=== PATIENT | male | born 1935 | race Caucasian/White ===

== ENCOUNTER 2022-02-15 12:22 | Inpatient (IN) | payer OTHER, SELFPAY ==
[2022-05-01 07:53] VITALS: PULSE 64
[2022-05-01] MEDS: allopurinoL 100 MG TABLET PO (07:53)
[2022-05-01] MEDS: DIGOXIN 125 MCG TABLET 62.5 MCG PO (07:53)
[2022-05-01] MEDS: ASPIRIN 81 MG TAB.CHEW PO (07:53)
[2022-05-01] MEDS: BACITRACIN OINTMENT BULK TUBE 1 APPLIC TOPICAL ×2 (07:53→20:16)
[2022-05-01] MEDS: CYANOCOBALAMIN (VITAMIN B-12) 500 MCG TABLET PO (07:53)
[2022-05-01] MEDS: METFORMIN ER 500 MG 1000 MG PO ×2 (07:54→16:51)
[2022-05-01] MEDS: METOPROLOL SUCCINATE (XL) 50 MG TAB PO (07:54)
[2022-05-01] MEDS: FUROSEMIDE 20 MG TABLET 80 MG PO (07:54)
[2022-05-01] MEDS: lisinopriL 2.5 MG TABLET PO (07:54)
[2022-05-01] MEDS: MULTIVITAMIN/MINERALS 1 TABLET 1 TAB PO (07:54)
[2022-05-01] MEDS: SPIRONOLACTONE 25 MG TABLET 12.5 MG PO (07:55)
[2022-05-01 08:05] LABS: INR 2.54 (0.91-1.10); Prothrombin Time 27.7 Seconds
--- NOTE | 2022-05-01 11:12 | PC.SPIRITC ---
Appraiser Real Estate provided visit for support and connection.
[2022-05-01] MEDS: WARFARIN SODIUM 6 MG TABLET PO (16:51)
[2022-05-01 18:17] VITALS: TEMP 36.6; O2SAT 97
[2022-05-01] MEDS: MELATONIN 5 MG TABLET 10 MG PO (20:15)
[2022-05-01] MEDS: ATORVASTATIN CALCIUM 20 MG TABLET PO (20:15)
[2022-05-01] MEDS: NYSTATIN POWDER 1 APPLIC TOPICAL (20:16)
[2022-05-01] MEDS: PRAMIPEXOLE 0.25 MG TABLET PO (20:16)
[2022-05-02] MEDS: allopurinoL 100 MG TABLET PO (09:00)
[2022-05-02] MEDS: ASPIRIN 81 MG TAB.CHEW PO (09:02)
[2022-05-02] MEDS: CYANOCOBALAMIN (VITAMIN B-12) 500 MCG TABLET PO (09:03)
[2022-05-02] MEDS: BACITRACIN OINTMENT BULK TUBE 1 APPLIC TOPICAL ×2 (09:03→21:18)
[2022-05-02 09:04] VITALS: PULSE 66
[2022-05-02] MEDS: FUROSEMIDE 20 MG TABLET 80 MG PO (09:04)
[2022-05-02] MEDS: DIGOXIN 125 MCG TABLET 62.5 MCG PO (09:04)
[2022-05-02] MEDS: METFORMIN ER 500 MG 1000 MG PO ×2 (09:05→15:38)
[2022-05-02] MEDS: lisinopriL 2.5 MG TABLET PO (09:05)
[2022-05-02] MEDS: METOPROLOL SUCCINATE (XL) 50 MG TAB PO (09:05)
[2022-05-02] MEDS: MULTIVITAMIN/MINERALS 1 TABLET 1 TAB PO (09:06)
[2022-05-02] MEDS: SPIRONOLACTONE 25 MG TABLET 12.5 MG PO (09:09)
[2022-05-02] MEDS: WARFARIN SODIUM 6 MG TABLET PO (15:38)
[2022-05-02 18:42] VITALS: TEMP 36.6; O2SAT 95
[2022-05-02] MEDS: MELATONIN 5 MG TABLET 10 MG PO (21:18)
[2022-05-02] MEDS: PRAMIPEXOLE 0.25 MG TABLET PO (21:18)
[2022-05-02] MEDS: ATORVASTATIN CALCIUM 20 MG TABLET PO (21:18)
[2022-05-03 05:02] VITALS: TEMP 36.6; O2SAT 99
[2022-05-03 08:18] VITALS: PULSE 64
[2022-05-03] MEDS: BACITRACIN OINTMENT BULK TUBE 1 APPLIC TOPICAL ×2 (08:18→19:12)
[2022-05-03] MEDS: DIGOXIN 125 MCG TABLET 62.5 MCG PO (08:18)
[2022-05-03] MEDS: ASPIRIN 81 MG TAB.CHEW PO (08:18)
[2022-05-03] MEDS: CYANOCOBALAMIN (VITAMIN B-12) 500 MCG TABLET PO (08:18)
[2022-05-03] MEDS: allopurinoL 100 MG TABLET PO (08:18)
[2022-05-03] MEDS: METOPROLOL SUCCINATE (XL) 50 MG TAB PO (08:19)
[2022-05-03] MEDS: FUROSEMIDE 20 MG TABLET 80 MG PO (08:19)
[2022-05-03] MEDS: METFORMIN ER 500 MG 1000 MG PO ×2 (08:19→16:49)
[2022-05-03] MEDS: MULTIVITAMIN/MINERALS 1 TABLET 1 TAB PO (08:19)
[2022-05-03] MEDS: SPIRONOLACTONE 25 MG TABLET 12.5 MG PO (08:19)
[2022-05-03] MEDS: lisinopriL 2.5 MG TABLET PO (08:19)
[2022-05-03 11:05] VITALS: BP 108/53; PULSE 64; RESP 16; TEMP 36.3; O2SAT 99
--- NOTE | 2022-05-03 12:55 | PC.PHA ---
Pharmacy Review ~ Patient takes warfarin for afib indication, dosed per therapeutic INRs. Blood pressure has been running low and metoprolol recently decreased. Metformin continues but rec. continued monitoring of renal function. Pain medication regimen consists of prn acetaminophen and he has not needed doses.
--- NOTE | 2022-05-03 16:29 | PC.SOCIAL ---
Social work note: Received call from clinic Population Health Nurse, Jessica, stating she had received a call and spoken with resident and his son Dax Ny. Per Jessica, resident is planning to return home with hired 27/05 care in his home. Jessica has provided son with contact information for this social security assessor. Met with resident who shared he has someone in mind who might be interested in providing care in his home but there is not a confirmed plan at this time. Resident was pleased to discuss options and is aware he or his son can contact social security assessor or nurse if they need additional information on his needs to plan for possible discharge. Resident confirmed he is not interested in starting any discharge process at this time and plans to stay at this facility until he has another option completely in place, which is son is working on. die storage worker to follow up if needed.
[2022-05-03] MEDS: WARFARIN SODIUM 6 MG TABLET PO (16:49)
[2022-05-03] MEDS: PRAMIPEXOLE 0.25 MG TABLET PO (19:12)
[2022-05-03] MEDS: MELATONIN 5 MG TABLET 10 MG PO (19:12)
[2022-05-03] MEDS: ATORVASTATIN CALCIUM 20 MG TABLET PO (19:12)
[2022-05-03 20:58] VITALS: TEMP 36.6; O2SAT 99
[2022-05-04 00:32] VITALS: TEMP 36.3; O2SAT 97
[2022-05-04] MEDS: BACITRACIN OINTMENT BULK TUBE 1 APPLIC TOPICAL ×2 (08:06→19:58)
[2022-05-04] MEDS: ASPIRIN 81 MG TAB.CHEW PO (08:06)
[2022-05-04] MEDS: allopurinoL 100 MG TABLET PO (08:06)
[2022-05-04 08:07] VITALS: PULSE 71
[2022-05-04] MEDS: FUROSEMIDE 20 MG TABLET 80 MG PO (08:07)
[2022-05-04] MEDS: DIGOXIN 125 MCG TABLET 62.5 MCG PO (08:07)
[2022-05-04] MEDS: METOPROLOL SUCCINATE (XL) 50 MG TAB PO (08:07)
[2022-05-04] MEDS: METFORMIN ER 500 MG 1000 MG PO ×2 (08:07→16:37)
[2022-05-04] MEDS: lisinopriL 2.5 MG TABLET PO (08:07)
[2022-05-04] MEDS: SPIRONOLACTONE 25 MG TABLET 12.5 MG PO (08:07)
[2022-05-04] MEDS: MULTIVITAMIN/MINERALS 1 TABLET 1 TAB PO (08:07)
[2022-05-04] MEDS: CYANOCOBALAMIN (VITAMIN B-12) 500 MCG TABLET PO (08:07)
[2022-05-04] MEDS: WARFARIN SODIUM 4 MG TABLET PO (16:37)
[2022-05-04 17:13] VITALS: TEMP 36.6; O2SAT 97
[2022-05-04] MEDS: ATORVASTATIN CALCIUM 20 MG TABLET PO (19:58)
[2022-05-04] MEDS: MELATONIN 5 MG TABLET 10 MG PO (19:58)
[2022-05-04] MEDS: PRAMIPEXOLE 0.25 MG TABLET PO (19:59)
[2022-05-04 23:00] VITALS: TEMP 36.4; O2SAT 98
[2022-05-05] MEDS: allopurinoL 100 MG TABLET PO (07:56)
[2022-05-05 07:57] VITALS: PULSE 73
[2022-05-05] MEDS: MULTIVITAMIN/MINERALS 1 TABLET 1 TAB PO (07:57)
[2022-05-05] MEDS: FUROSEMIDE 20 MG TABLET 80 MG PO (07:57)
[2022-05-05] MEDS: ASPIRIN 81 MG TAB.CHEW PO (07:57)
[2022-05-05] MEDS: METFORMIN ER 500 MG 1000 MG PO ×2 (07:57→16:30)
[2022-05-05] MEDS: BACITRACIN OINTMENT BULK TUBE 1 APPLIC TOPICAL ×2 (07:57→19:41)
[2022-05-05] MEDS: METOPROLOL SUCCINATE (XL) 50 MG TAB PO (07:57)
[2022-05-05] MEDS: CYANOCOBALAMIN (VITAMIN B-12) 500 MCG TABLET PO (07:57)
[2022-05-05] MEDS: lisinopriL 2.5 MG TABLET PO (07:57)
[2022-05-05] MEDS: DIGOXIN 125 MCG TABLET 62.5 MCG PO (07:57)
[2022-05-05] MEDS: SPIRONOLACTONE 25 MG TABLET 12.5 MG PO (07:57)
[2022-05-05] MEDS: WARFARIN SODIUM 6 MG TABLET PO (16:30)
[2022-05-05] MEDS: PRAMIPEXOLE 0.25 MG TABLET PO (19:41)
[2022-05-05] MEDS: MELATONIN 5 MG TABLET 10 MG PO (19:41)
[2022-05-05] MEDS: ATORVASTATIN CALCIUM 20 MG TABLET PO (19:41)
[2022-05-05 21:42] VITALS: TEMP 36.6; O2SAT 99
[2022-05-06 07:37] VITALS: PULSE 80
[2022-05-06] MEDS: DIGOXIN 125 MCG TABLET 62.5 MCG PO (07:37)
[2022-05-06] MEDS: CYANOCOBALAMIN (VITAMIN B-12) 500 MCG TABLET PO (07:37)
[2022-05-06] MEDS: allopurinoL 100 MG TABLET PO (07:37)
[2022-05-06] MEDS: ASPIRIN 81 MG TAB.CHEW PO (07:37)
[2022-05-06] MEDS: BACITRACIN OINTMENT BULK TUBE 1 APPLIC TOPICAL ×2 (07:37→19:50)
[2022-05-06] MEDS: SPIRONOLACTONE 25 MG TABLET 12.5 MG PO (07:38)
[2022-05-06] MEDS: FUROSEMIDE 20 MG TABLET 80 MG PO (07:38)
[2022-05-06] MEDS: METOPROLOL SUCCINATE (XL) 50 MG TAB PO (07:38)
[2022-05-06] MEDS: METFORMIN ER 500 MG 1000 MG PO ×2 (07:38→16:25)
[2022-05-06] MEDS: MULTIVITAMIN/MINERALS 1 TABLET 1 TAB PO (07:38)
[2022-05-06] MEDS: lisinopriL 2.5 MG TABLET PO (07:38)
[2022-05-06] MEDS: WARFARIN SODIUM 4 MG TABLET PO (16:25)
[2022-05-06 17:01] VITALS: TEMP 36.7; O2SAT 99
[2022-05-06] MEDS: ATORVASTATIN CALCIUM 20 MG TABLET PO (19:50)
[2022-05-06] MEDS: MELATONIN 5 MG TABLET 10 MG PO (19:50)
[2022-05-06] MEDS: PRAMIPEXOLE 0.25 MG TABLET PO (19:50)
[2022-05-07 08:03] VITALS: PULSE 67
[2022-05-07] MEDS: CYANOCOBALAMIN (VITAMIN B-12) 500 MCG TABLET PO (08:03)
[2022-05-07] MEDS: METFORMIN ER 500 MG 1000 MG PO ×2 (08:03→15:55)
[2022-05-07] MEDS: allopurinoL 100 MG TABLET PO (08:03)
[2022-05-07] MEDS: lisinopriL 2.5 MG TABLET PO (08:03)
[2022-05-07] MEDS: MULTIVITAMIN/MINERALS 1 TABLET 1 TAB PO (08:03)
[2022-05-07] MEDS: FUROSEMIDE 20 MG TABLET 80 MG PO (08:03)
[2022-05-07] MEDS: ASPIRIN 81 MG TAB.CHEW PO (08:03)
[2022-05-07] MEDS: DIGOXIN 125 MCG TABLET 62.5 MCG PO (08:03)
[2022-05-07] MEDS: BACITRACIN OINTMENT BULK TUBE 1 APPLIC TOPICAL ×2 (08:03→19:43)
[2022-05-07] MEDS: METOPROLOL SUCCINATE (XL) 50 MG TAB PO (08:03)
[2022-05-07] MEDS: SPIRONOLACTONE 25 MG TABLET 12.5 MG PO (08:04)
[2022-05-07] MEDS: WARFARIN SODIUM 6 MG TABLET PO (15:55)
[2022-05-07 16:49] VITALS: TEMP 36.9; O2SAT 99
[2022-05-07] MEDS: LOPERAMIDE HCL 2 MG CAPSULE PO (19:42)
[2022-05-07] MEDS: PRAMIPEXOLE 0.25 MG TABLET PO (19:43)
[2022-05-07] MEDS: ATORVASTATIN CALCIUM 20 MG TABLET PO (19:43)
[2022-05-07] MEDS: MELATONIN 5 MG TABLET 10 MG PO (19:43)
[2022-05-08] MEDS: allopurinoL 100 MG TABLET PO (08:01)
[2022-05-08] MEDS: ASPIRIN 81 MG TAB.CHEW PO (08:01)
[2022-05-08] MEDS: BACITRACIN OINTMENT BULK TUBE 1 APPLIC TOPICAL ×2 (08:01→19:49)
[2022-05-08] MEDS: CYANOCOBALAMIN (VITAMIN B-12) 500 MCG TABLET PO (08:02)
[2022-05-08] MEDS: METFORMIN ER 500 MG 1000 MG PO ×2 (08:02→16:52)
[2022-05-08] MEDS: FUROSEMIDE 20 MG TABLET 80 MG PO (08:02)
[2022-05-08] MEDS: METOPROLOL SUCCINATE (XL) 50 MG TAB PO (08:02)
[2022-05-08] MEDS: lisinopriL 2.5 MG TABLET PO (08:02)
[2022-05-08] MEDS: SPIRONOLACTONE 25 MG TABLET 12.5 MG PO (08:03)
[2022-05-08] MEDS: MULTIVITAMIN/MINERALS 1 TABLET 1 TAB PO (08:03)
[2022-05-08 08:06] VITALS: PULSE 72
[2022-05-08] MEDS: DIGOXIN 125 MCG TABLET 62.5 MCG PO (08:06)
[2022-05-08] MEDS: WARFARIN SODIUM 6 MG TABLET PO (16:52)
[2022-05-08] MEDS: PRAMIPEXOLE 0.25 MG TABLET PO (19:49)
[2022-05-08] MEDS: MELATONIN 5 MG TABLET 10 MG PO (19:49)
[2022-05-08] MEDS: ATORVASTATIN CALCIUM 20 MG TABLET PO (19:49)
[2022-05-08 21:27] VITALS: TEMP 36.6; O2SAT 99
--- NOTE | 2022-05-09 05:54 | PC.NURSE ---
Late Entry for 05/07/22: Per PT, [place] resident is ok to ambulate to/fro dining room if he wants with one assist, transfer belt, walker and wheelchair behind.
[2022-05-09 08:10] VITALS: PULSE 64
[2022-05-09] MEDS: FUROSEMIDE 20 MG TABLET 80 MG PO (08:10)
[2022-05-09] MEDS: ASPIRIN 81 MG TAB.CHEW PO (08:10)
[2022-05-09] MEDS: BACITRACIN OINTMENT BULK TUBE 1 APPLIC TOPICAL ×2 (08:10→20:27)
[2022-05-09] MEDS: allopurinoL 100 MG TABLET PO (08:10)
[2022-05-09] MEDS: CYANOCOBALAMIN (VITAMIN B-12) 500 MCG TABLET PO (08:10)
[2022-05-09] MEDS: DIGOXIN 125 MCG TABLET 62.5 MCG PO (08:10)
[2022-05-09] MEDS: METFORMIN ER 500 MG 1000 MG PO ×2 (08:11→15:29)
[2022-05-09] MEDS: METOPROLOL SUCCINATE (XL) 50 MG TAB PO (08:11)
[2022-05-09] MEDS: MULTIVITAMIN/MINERALS 1 TABLET 1 TAB PO (08:11)
[2022-05-09] MEDS: SPIRONOLACTONE 25 MG TABLET 12.5 MG PO (08:11)
[2022-05-09] MEDS: lisinopriL 2.5 MG TABLET PO (08:11)
[2022-05-09] MEDS: WARFARIN SODIUM 6 MG TABLET PO (15:29)
[2022-05-09 18:36] VITALS: TEMP 36.2; O2SAT 98
[2022-05-09] MEDS: PRAMIPEXOLE 0.25 MG TABLET PO (19:53)
[2022-05-09] MEDS: MELATONIN 5 MG TABLET 10 MG PO (19:53)
[2022-05-09] MEDS: ATORVASTATIN CALCIUM 20 MG TABLET PO (19:53)
--- NOTE | 2022-05-10 02:33 | PC.NURSE ---
When assisting resident to toilet noted reddened area at coccyx with small pin point open spots, reddened area approx 10 x 10 cm. Resident says it is sore. Area washed and Sensi Cream protective barrier applied. Two drops of blood on pull up, scant blood on tip of penis. Resident assisted back into bed and is laying on his right side. catheter is in place and not pulling on penis. Says he does not lay on left side.
--- NOTE | 2022-05-10 02:40 | PC.NURSE ---
Week #1 Care Plan problems 1-19 and Temporary Care Plan reviewed, no changes made to plan of care,nothing added. Resident receives no scheduled pain meds. Has an order for Tylenol 325mg prn but has not requested past week. Vital signs stable and within normal limits. wt is stable, weighed daily. 05/10/2022 [id number] res c/o's of sore bottom but refused Tylenol when offered.
[2022-05-10 08:05] VITALS: PULSE 67
[2022-05-10] MEDS: ASPIRIN 81 MG TAB.CHEW PO (08:05)
[2022-05-10] MEDS: BACITRACIN OINTMENT BULK TUBE 1 APPLIC TOPICAL ×2 (08:05→20:33)
[2022-05-10] MEDS: DIGOXIN 125 MCG TABLET 62.5 MCG PO (08:05)
[2022-05-10] MEDS: allopurinoL 100 MG TABLET PO (08:05)
[2022-05-10] MEDS: CYANOCOBALAMIN (VITAMIN B-12) 500 MCG TABLET PO (08:05)
[2022-05-10] MEDS: FUROSEMIDE 20 MG TABLET 80 MG PO (08:06)
[2022-05-10] MEDS: lisinopriL 2.5 MG TABLET PO (08:06)
[2022-05-10] MEDS: METFORMIN ER 500 MG 1000 MG PO ×2 (08:06→16:40)
[2022-05-10] MEDS: METOPROLOL SUCCINATE (XL) 50 MG TAB PO (08:06)
[2022-05-10] MEDS: MULTIVITAMIN/MINERALS 1 TABLET 1 TAB PO (08:06)
[2022-05-10] MEDS: SPIRONOLACTONE 25 MG TABLET 12.5 MG PO (08:06)
[2022-05-10] MEDS: LOPERAMIDE HCL 2 MG CAPSULE PO (11:39)
--- NOTE | 2022-05-10 11:55 | PC.NURSE ---
Skin: Open area on (R) medial ankle healed.
--- NOTE | 2022-05-10 13:58 | PC.NURSE ---
Skin: Bottom red, appears irritated. Was incontinent of BM at the start of the shift and was sitting on dirty pad. Cleansed and protective barrier applied. Staff monitor area and apply protective barrier BID til healed.
--- NOTE | 2022-05-10 14:54 | PC.NURSE ---
Week 1: Care plan problems 1-19 reviewed. Temporary care plan reviewed. No changes made. Resident requires assist of 1 with dressing, grooming, toileting and hygiene. Staff assist resident with set up for oral care, resident able to complete. Continues on Heart Healthy 2g sodium and low fat diet. As well as 2,000cc Fluid restriction. No changes in eating habits. Pain Summary: Resident has not c/o of pain in past month. Continues on Tylenol 325mg PO PRN Q4H.
[2022-05-10] MEDS: WARFARIN SODIUM 6 MG TABLET PO (16:40)
[2022-05-10] MEDS: ATORVASTATIN CALCIUM 20 MG TABLET PO (20:33)
[2022-05-10] MEDS: MELATONIN 5 MG TABLET 10 MG PO (20:33)
[2022-05-10] MEDS: PRAMIPEXOLE 0.25 MG TABLET PO (20:33)
[2022-05-10 21:43] VITALS: BP 118/62; PULSE 67; RESP 16; TEMP 36.9; O2SAT 100
--- NOTE | 2022-05-10 21:50 | PC.NURSE ---
Outing: Resident went out to eat with son at 1830. Returned at 2029.
[2022-05-11] MEDS: ASPIRIN 81 MG TAB.CHEW PO (08:02)
[2022-05-11] MEDS: allopurinoL 100 MG TABLET PO (08:02)
[2022-05-11 08:03] VITALS: PULSE 77
[2022-05-11] MEDS: BACITRACIN OINTMENT BULK TUBE 1 APPLIC TOPICAL ×2 (08:03→19:42)
[2022-05-11] MEDS: DIGOXIN 125 MCG TABLET 62.5 MCG PO (08:03)
[2022-05-11] MEDS: MULTIVITAMIN/MINERALS 1 TABLET 1 TAB PO (08:03)
[2022-05-11] MEDS: METFORMIN ER 500 MG 1000 MG PO ×2 (08:03→16:04)
[2022-05-11] MEDS: SPIRONOLACTONE 25 MG TABLET 12.5 MG PO (08:03)
[2022-05-11] MEDS: METOPROLOL SUCCINATE (XL) 50 MG TAB PO (08:03)
[2022-05-11] MEDS: CYANOCOBALAMIN (VITAMIN B-12) 500 MCG TABLET PO (08:03)
[2022-05-11] MEDS: lisinopriL 2.5 MG TABLET PO (08:03)
[2022-05-11] MEDS: FUROSEMIDE 20 MG TABLET 80 MG PO (08:03)
[2022-05-11] MEDS: WARFARIN SODIUM 4 MG TABLET PO (16:04)
[2022-05-11] MEDS: NYSTATIN POWDER 1 APPLIC TOPICAL (19:42)
[2022-05-11] MEDS: MELATONIN 5 MG TABLET 10 MG PO (19:42)
[2022-05-11] MEDS: PRAMIPEXOLE 0.25 MG TABLET PO (19:42)
[2022-05-11] MEDS: ATORVASTATIN CALCIUM 20 MG TABLET PO (19:42)
[2022-05-11 21:13] VITALS: TEMP 37; O2SAT 99
[2022-05-12] MEDS: ASPIRIN 81 MG TAB.CHEW PO (08:04)
[2022-05-12] MEDS: allopurinoL 100 MG TABLET PO (08:04)
[2022-05-12] MEDS: FUROSEMIDE 20 MG TABLET 80 MG PO (08:04)
[2022-05-12] MEDS: CYANOCOBALAMIN (VITAMIN B-12) 500 MCG TABLET PO (08:04)
[2022-05-12] MEDS: METFORMIN ER 500 MG 1000 MG PO ×2 (08:04→16:40)
[2022-05-12] MEDS: METOPROLOL SUCCINATE (XL) 50 MG TAB PO (08:04)
[2022-05-12] MEDS: BACITRACIN OINTMENT BULK TUBE 1 APPLIC TOPICAL ×2 (08:04→19:24)
[2022-05-12] MEDS: lisinopriL 2.5 MG TABLET PO (08:04)
[2022-05-12] MEDS: SPIRONOLACTONE 25 MG TABLET 12.5 MG PO (08:05)
[2022-05-12] MEDS: MULTIVITAMIN/MINERALS 1 TABLET 1 TAB PO (08:05)
[2022-05-12 08:17] VITALS: PULSE 68
[2022-05-12] MEDS: DIGOXIN 125 MCG TABLET 62.5 MCG PO (08:17)
[2022-05-12 16:00] VITALS: TEMP 37; O2SAT 99
[2022-05-12] MEDS: WARFARIN SODIUM 6 MG TABLET PO (16:40)
[2022-05-12] MEDS: ATORVASTATIN CALCIUM 20 MG TABLET PO (19:24)
[2022-05-12] MEDS: PRAMIPEXOLE 0.25 MG TABLET PO (19:24)
[2022-05-12] MEDS: MELATONIN 5 MG TABLET 10 MG PO (19:24)
[2022-05-13] MEDS: allopurinoL 100 MG TABLET PO (07:59)
[2022-05-13] MEDS: BACITRACIN OINTMENT BULK TUBE 1 APPLIC TOPICAL ×2 (08:00→20:14)
[2022-05-13] MEDS: ASPIRIN 81 MG TAB.CHEW PO (08:00)
[2022-05-13] MEDS: CYANOCOBALAMIN (VITAMIN B-12) 500 MCG TABLET PO (08:00)
[2022-05-13] MEDS: FUROSEMIDE 20 MG TABLET 80 MG PO (08:01)
[2022-05-13] MEDS: METOPROLOL SUCCINATE (XL) 50 MG TAB PO (08:01)
[2022-05-13] MEDS: lisinopriL 2.5 MG TABLET PO (08:01)
[2022-05-13] MEDS: MULTIVITAMIN/MINERALS 1 TABLET 1 TAB PO (08:01)
[2022-05-13] MEDS: SPIRONOLACTONE 25 MG TABLET 12.5 MG PO (08:01)
[2022-05-13] MEDS: METFORMIN ER 500 MG 1000 MG PO ×2 (08:01→16:20)
[2022-05-13 08:08] VITALS: PULSE 77
[2022-05-13] MEDS: DIGOXIN 125 MCG TABLET 62.5 MCG PO (08:08)
--- NOTE | 2022-05-13 14:27 | PC.NURSE ---
Diarrhea: Resident had one loose stools after breakfast, nothing more reported as at now (end of this shift). Fluids encouraged and offered to prevent dehydration.
--- NOTE | 2022-05-13 14:32 | PC.NURSE ---
Diarrhea: Resident had one loose stools after breakfast, nothing more reported as at now (end of this shift). Fluids encouraged and offered to prevent dehydration.
[2022-05-13] MEDS: WARFARIN SODIUM 4 MG TABLET PO (16:20)
[2022-05-13 17:23] VITALS: TEMP 36.8; O2SAT 98
[2022-05-13] MEDS: MELATONIN 5 MG TABLET 10 MG PO (20:14)
[2022-05-13] MEDS: ATORVASTATIN CALCIUM 20 MG TABLET PO (20:14)
[2022-05-13] MEDS: PRAMIPEXOLE 0.25 MG TABLET PO (20:14)
[2022-05-13] MEDS: LOPERAMIDE HCL 2 MG CAPSULE PO (20:44)
--- NOTE | 2022-05-13 21:14 | PC.NURSE ---
Status: Resident is given loperamide 2mg at 2043 due to having x4 loose stools today.
[2022-05-14] MEDS: allopurinoL 100 MG TABLET PO (07:06)
[2022-05-14] MEDS: ASPIRIN 81 MG TAB.CHEW PO (07:06)
[2022-05-14 07:07] VITALS: PULSE 70
[2022-05-14] MEDS: CYANOCOBALAMIN (VITAMIN B-12) 500 MCG TABLET PO (07:07)
[2022-05-14] MEDS: BACITRACIN OINTMENT BULK TUBE 1 APPLIC TOPICAL ×2 (07:07→19:40)
[2022-05-14] MEDS: DIGOXIN 125 MCG TABLET 62.5 MCG PO (07:07)
[2022-05-14] MEDS: METFORMIN ER 500 MG 1000 MG PO ×2 (07:08→16:19)
[2022-05-14] MEDS: lisinopriL 2.5 MG TABLET PO (07:08)
[2022-05-14] MEDS: METOPROLOL SUCCINATE (XL) 50 MG TAB PO (07:08)
[2022-05-14] MEDS: FUROSEMIDE 20 MG TABLET 80 MG PO (07:08)
[2022-05-14] MEDS: MULTIVITAMIN/MINERALS 1 TABLET 1 TAB PO (07:09)
[2022-05-14] MEDS: SPIRONOLACTONE 25 MG TABLET 12.5 MG PO (07:09)
[2022-05-14 16:00] VITALS: TEMP 36.6; O2SAT 96
[2022-05-14] MEDS: WARFARIN SODIUM 6 MG TABLET PO (16:19)
[2022-05-14] MEDS: ATORVASTATIN CALCIUM 20 MG TABLET PO (19:40)
[2022-05-14] MEDS: MELATONIN 5 MG TABLET 10 MG PO (19:40)
[2022-05-14] MEDS: PRAMIPEXOLE 0.25 MG TABLET PO (19:40)
--- NOTE | 2022-05-14 21:05 | PC.NURSE ---
Diarrhea: Resident had two small loose stools this shift. Will continue to monitor.
[2022-05-15] MEDS: CYANOCOBALAMIN (VITAMIN B-12) 500 MCG TABLET PO (07:56)
[2022-05-15] MEDS: allopurinoL 100 MG TABLET PO (07:56)
[2022-05-15] MEDS: ASPIRIN 81 MG TAB.CHEW PO (07:56)
[2022-05-15] MEDS: METFORMIN ER 500 MG 1000 MG PO ×2 (08:04→16:22)
[2022-05-15] MEDS: DIGOXIN 125 MCG TABLET 62.5 MCG PO (08:04)
[2022-05-15] MEDS: FUROSEMIDE 20 MG TABLET 80 MG PO (08:04)
[2022-05-15] MEDS: lisinopriL 2.5 MG TABLET PO (08:04)
[2022-05-15] MEDS: METOPROLOL SUCCINATE (XL) 50 MG TAB PO (08:05)
[2022-05-15] MEDS: MULTIVITAMIN/MINERALS 1 TABLET 1 TAB PO (08:06)
[2022-05-15] MEDS: SPIRONOLACTONE 25 MG TABLET 12.5 MG PO (08:06)
[2022-05-15] MEDS: BACITRACIN OINTMENT BULK TUBE 1 APPLIC TOPICAL ×2 (08:06→19:52)
[2022-05-15 10:14] LABS: INR 3.57 (0.91-1.10)
[2022-05-15 11:14] VITALS: TEMP 36.8; O2SAT 94
--- NOTE | 2022-05-15 12:12 | PC.NURSE ---
INR: Result reviewed by [facility] Coumadin Nurse, Elizabeth. Order: Hold Coumadin today, give 4 mg Sat, 6 mg . Check INR on 05/18/22.
[2022-05-15] MEDS: LOPERAMIDE HCL 2 MG CAPSULE PO (16:51)
[2022-05-15 17:17] VITALS: TEMP 36.6; O2SAT 91
[2022-05-15] MEDS: ATORVASTATIN CALCIUM 20 MG TABLET PO (19:52)
[2022-05-15] MEDS: MELATONIN 5 MG TABLET 10 MG PO (19:52)
[2022-05-15] MEDS: PRAMIPEXOLE 0.25 MG TABLET PO (19:53)
[2022-05-15 23:00] VITALS: TEMP 36.2; O2SAT 97
[2022-05-16 08:22] VITALS: PULSE 75
[2022-05-16] MEDS: DIGOXIN 125 MCG TABLET 62.5 MCG PO (08:22)
[2022-05-16] MEDS: ASPIRIN 81 MG TAB.CHEW PO (08:22)
[2022-05-16] MEDS: allopurinoL 100 MG TABLET PO (08:22)
[2022-05-16] MEDS: CYANOCOBALAMIN (VITAMIN B-12) 500 MCG TABLET PO (08:22)
[2022-05-16] MEDS: FUROSEMIDE 20 MG TABLET 80 MG PO (08:22)
[2022-05-16] MEDS: MULTIVITAMIN/MINERALS 1 TABLET 1 TAB PO (08:23)
[2022-05-16] MEDS: METFORMIN ER 500 MG 1000 MG PO ×2 (08:23→15:49)
[2022-05-16] MEDS: SPIRONOLACTONE 25 MG TABLET 12.5 MG PO (08:23)
[2022-05-16] MEDS: lisinopriL 2.5 MG TABLET PO (08:23)
[2022-05-16] MEDS: METOPROLOL SUCCINATE (XL) 50 MG TAB PO (08:23)
[2022-05-16 10:29] VITALS: TEMP 36.3; O2SAT 99
--- NOTE | 2022-05-16 16:07 | PC.SPIRITC ---
Crossword Puzzle Maker provided visit for support and connection.
[2022-05-16] MEDS: WARFARIN 2 MG TABLET 4 MG PO (16:45)
[2022-05-16 17:15] VITALS: TEMP 36.6; O2SAT 98
[2022-05-16] MEDS: BACITRACIN OINTMENT BULK TUBE 1 APPLIC TOPICAL (19:45)
[2022-05-16] MEDS: ATORVASTATIN CALCIUM 20 MG TABLET PO (19:45)
[2022-05-16] MEDS: MELATONIN 5 MG TABLET 10 MG PO (19:45)
[2022-05-16] MEDS: PRAMIPEXOLE 0.25 MG TABLET PO (19:46)
[2022-05-16 23:00] VITALS: TEMP 36.7; O2SAT 96
--- NOTE | 2022-05-17 02:29 | PC.NURSE ---
Week #2---care plan problems #20-29 reviewed. No changes made. Nothing added to temporary care plan. Is independent with bed mobility using top siderails. Calls for assist to the BR. Transfers to w/c with TB and assist of 1. Staff wheel res. to and from the BR. Res. able to use the grabbars in the BR to assist with transfers on and off the toilet. Does have bed exit alarm on. Will occ. forget to use the call light and sit up himself. Falls---no falls this past month. Is a high fall risk according to assessment done on 03/23/22.
--- NOTE | 2022-05-17 06:58 | PC.NURSE ---
Week #2: Care plan problems and temporary care plan reviewed. No changes made. Temporary care plan updated: Per PT resident may ambulate if he wants with one assist, transfer belt, walker and w/c behind. He needs one assist, transfer belt with transfers. Staff wheels to destinations. Staff to cue/assist with repositioning q2h. 2 side rails up in bed to aid for positioning. Has a bed exit and recliner alarm. Fall: No falls this past month. Is a high fall risk according to assessment done on 03/23/22.
[2022-05-17 07:00] VITALS: TEMP 36.6; O2SAT 95
[2022-05-17] MEDS: BACITRACIN OINTMENT BULK TUBE 1 APPLIC TOPICAL ×2 (07:55→19:46)
[2022-05-17] MEDS: FUROSEMIDE 20 MG TABLET 80 MG PO (07:55)
[2022-05-17] MEDS: METOPROLOL SUCCINATE (XL) 50 MG TAB PO (07:55)
[2022-05-17] MEDS: MULTIVITAMIN/MINERALS 1 TABLET 1 TAB PO (07:55)
[2022-05-17] MEDS: CYANOCOBALAMIN (VITAMIN B-12) 500 MCG TABLET PO (07:55)
[2022-05-17] MEDS: METFORMIN ER 500 MG 1000 MG PO ×2 (07:55→15:41)
[2022-05-17] MEDS: ASPIRIN 81 MG TAB.CHEW PO (07:55)
[2022-05-17] MEDS: lisinopriL 2.5 MG TABLET PO (07:55)
[2022-05-17] MEDS: allopurinoL 100 MG TABLET PO (07:55)
[2022-05-17] MEDS: SPIRONOLACTONE 25 MG TABLET 12.5 MG PO (07:56)
[2022-05-17 08:16] VITALS: PULSE 77
[2022-05-17] MEDS: DIGOXIN 125 MCG TABLET 62.5 MCG PO (08:16)
--- NOTE | 2022-05-17 14:00 | PC.NURSE ---
Bowel Status: It was reported resident had two loose stools this shift. Imodium administered.
[2022-05-17] MEDS: WARFARIN 3 MG TABLET 6 MG PO (15:41)
[2022-05-17 16:44] VITALS: TEMP 36.6; O2SAT 98
[2022-05-17] MEDS: ATORVASTATIN CALCIUM 20 MG TABLET PO (19:46)
[2022-05-17] MEDS: PRAMIPEXOLE 0.25 MG TABLET PO (19:46)
[2022-05-17] MEDS: MELATONIN 5 MG TABLET 10 MG PO (19:46)
[2022-05-17 20:30] LABS: SARS PCR* Negative SARS-CoV-2 (Negative)
[2022-05-17 21:21] VITALS: BP 120/60; PULSE 78; RESP 18; TEMP 36.6; O2SAT 98
--- NOTE | 2022-05-17 21:45 | PC.NURSE ---
Bowel status: Resident had one loose stool this shift. Large, loose, green. No c/o discomfort.
[2022-05-17 23:00] VITALS: TEMP 36.4; O2SAT 99
[2022-05-18 07:00] VITALS: TEMP 36.5; O2SAT 99
[2022-05-18] MEDS: LOPERAMIDE HCL 2 MG CAPSULE PO (07:44)
[2022-05-18] MEDS: CYANOCOBALAMIN (VITAMIN B-12) 500 MCG TABLET PO (07:56)
[2022-05-18] MEDS: ASPIRIN 81 MG TAB.CHEW PO (07:56)
[2022-05-18] MEDS: BACITRACIN OINTMENT BULK TUBE 1 APPLIC TOPICAL ×2 (07:56→19:29)
[2022-05-18] MEDS: allopurinoL 100 MG TABLET PO (07:56)
[2022-05-18 07:57] VITALS: PULSE 79
[2022-05-18] MEDS: lisinopriL 2.5 MG TABLET PO (07:57)
[2022-05-18] MEDS: MULTIVITAMIN/MINERALS 1 TABLET 1 TAB PO (07:57)
[2022-05-18] MEDS: METFORMIN ER 500 MG 1000 MG PO ×2 (07:57→16:32)
[2022-05-18] MEDS: DIGOXIN 125 MCG TABLET 62.5 MCG PO (07:57)
[2022-05-18] MEDS: METOPROLOL SUCCINATE (XL) 50 MG TAB PO (07:57)
[2022-05-18] MEDS: FUROSEMIDE 20 MG TABLET 80 MG PO (07:57)
[2022-05-18] MEDS: SPIRONOLACTONE 25 MG TABLET 12.5 MG PO (07:57)
[2022-05-18 08:28] LABS: INR 1.94 (0.91-1.10); Prothrombin Time 22.5 Seconds
--- NOTE | 2022-05-18 09:30 | PC.NURSE ---
INR: Result reviewed by [facility] Coumadin NurseAnnabel. Order: Coumadin 6 mg MoFr, 4 mg all other days. INR 05/22/22.
[2022-05-18 17:17] VITALS: TEMP 37.4; O2SAT 90
[2022-05-18] MEDS: WARFARIN 3 MG TABLET 6 MG PO (19:29)
[2022-05-18] MEDS: ATORVASTATIN CALCIUM 20 MG TABLET PO (19:29)
[2022-05-18] MEDS: MELATONIN 5 MG TABLET 10 MG PO (19:29)
[2022-05-18] MEDS: PRAMIPEXOLE 0.25 MG TABLET PO (19:30)
[2022-05-18 23:00] VITALS: TEMP 36.5; O2SAT 97
[2022-05-19 07:00] VITALS: TEMP 36.6; O2SAT 99
[2022-05-19 07:38] VITALS: PULSE 71
[2022-05-19] MEDS: METOPROLOL SUCCINATE (XL) 50 MG TAB PO (07:38)
[2022-05-19] MEDS: FUROSEMIDE 20 MG TABLET 80 MG PO (07:38)
[2022-05-19] MEDS: ASPIRIN 81 MG TAB.CHEW PO (07:38)
[2022-05-19] MEDS: BACITRACIN OINTMENT BULK TUBE 1 APPLIC TOPICAL ×2 (07:38→19:30)
[2022-05-19] MEDS: METFORMIN ER 500 MG 1000 MG PO ×2 (07:38→16:45)
[2022-05-19] MEDS: lisinopriL 2.5 MG TABLET PO (07:38)
[2022-05-19] MEDS: allopurinoL 100 MG TABLET PO (07:38)
[2022-05-19] MEDS: DIGOXIN 125 MCG TABLET 62.5 MCG PO (07:38)
[2022-05-19] MEDS: CYANOCOBALAMIN (VITAMIN B-12) 500 MCG TABLET PO (07:38)
[2022-05-19] MEDS: SPIRONOLACTONE 25 MG TABLET 12.5 MG PO (07:39)
[2022-05-19] MEDS: MULTIVITAMIN/MINERALS 1 TABLET 1 TAB PO (07:39)
[2022-05-19] MEDS: WARFARIN 2 MG TABLET 4 MG PO (16:45)
[2022-05-19 17:12] VITALS: TEMP 36.6; O2SAT 96
[2022-05-19] MEDS: ATORVASTATIN CALCIUM 20 MG TABLET PO (19:30)
[2022-05-19] MEDS: MELATONIN 5 MG TABLET 10 MG PO (19:30)
[2022-05-19] MEDS: PRAMIPEXOLE 0.25 MG TABLET PO (19:30)
[2022-05-20 00:31] VITALS: TEMP 36.3; O2SAT 94
[2022-05-20 07:00] VITALS: TEMP 36.6; O2SAT 99
[2022-05-20] MEDS: FUROSEMIDE 20 MG TABLET 80 MG PO (07:48)
[2022-05-20] MEDS: METFORMIN ER 500 MG 1000 MG PO ×2 (07:48→15:05)
[2022-05-20] MEDS: allopurinoL 100 MG TABLET PO (07:48)
[2022-05-20] MEDS: lisinopriL 2.5 MG TABLET PO (07:48)
[2022-05-20] MEDS: ASPIRIN 81 MG TAB.CHEW PO (07:48)
[2022-05-20] MEDS: CYANOCOBALAMIN (VITAMIN B-12) 500 MCG TABLET PO (07:48)
[2022-05-20] MEDS: BACITRACIN OINTMENT BULK TUBE 1 APPLIC TOPICAL ×2 (07:48→19:37)
[2022-05-20 07:56] VITALS: PULSE 77
[2022-05-20] MEDS: METOPROLOL SUCCINATE (XL) 50 MG TAB PO (07:56)
[2022-05-20] MEDS: SPIRONOLACTONE 25 MG TABLET 12.5 MG PO (07:56)
[2022-05-20] MEDS: DIGOXIN 125 MCG TABLET 62.5 MCG PO (07:56)
[2022-05-20] MEDS: MULTIVITAMIN/MINERALS 1 TABLET 1 TAB PO (07:56)
[2022-05-20] MEDS: LOPERAMIDE HCL 2 MG CAPSULE PO (13:18)
--- NOTE | 2022-05-20 13:48 | PC.NURSE ---
Bowel update: Concerns about occasional loose, watery stools has been entered in MANAGER ICU book. Has had 3 loose stools between NOC and AM shifts, today. Imodium given at 1318. Will continue to monitor.
[2022-05-20] MEDS: WARFARIN 2 MG TABLET 4 MG PO (15:05)
[2022-05-20 17:00] VITALS: TEMP 36.8; O2SAT 99
[2022-05-20] MEDS: ATORVASTATIN CALCIUM 20 MG TABLET PO (19:37)
[2022-05-20] MEDS: MELATONIN 5 MG TABLET 10 MG PO (19:37)
[2022-05-20] MEDS: PRAMIPEXOLE 0.25 MG TABLET PO (19:37)
--- NOTE | 2022-05-20 21:07 | PC.NURSE ---
Bowels: Resident had one episode of copious loose stool. Disc with resident taking a break from large amt of snacks in his room until bowel management is under control. Resident in agreement.
[2022-05-20 23:00] VITALS: TEMP 37.1; O2SAT 99
[2022-05-21] MEDS: allopurinoL 100 MG TABLET PO (08:03)
[2022-05-21] MEDS: CYANOCOBALAMIN (VITAMIN B-12) 500 MCG TABLET PO (08:03)
[2022-05-21] MEDS: BACITRACIN OINTMENT BULK TUBE 1 APPLIC TOPICAL ×2 (08:03→19:29)
[2022-05-21] MEDS: ASPIRIN 81 MG TAB.CHEW PO (08:03)
[2022-05-21] MEDS: METFORMIN ER 500 MG 1000 MG PO ×2 (08:04→16:19)
[2022-05-21] MEDS: FUROSEMIDE 20 MG TABLET 80 MG PO (08:04)
[2022-05-21] MEDS: lisinopriL 2.5 MG TABLET PO (08:04)
[2022-05-21] MEDS: SPIRONOLACTONE 25 MG TABLET 12.5 MG PO (08:05)
[2022-05-21] MEDS: METOPROLOL SUCCINATE (XL) 50 MG TAB PO (08:05)
[2022-05-21] MEDS: MULTIVITAMIN/MINERALS 1 TABLET 1 TAB PO (08:05)
[2022-05-21 08:14] VITALS: PULSE 85
[2022-05-21] MEDS: DIGOXIN 125 MCG TABLET 62.5 MCG PO (08:14)
[2022-05-21 12:13] VITALS: TEMP 36.9; O2SAT 95
[2022-05-21 15:00] VITALS: TEMP 36.7; O2SAT 98
[2022-05-21] MEDS: WARFARIN 3 MG TABLET 6 MG PO (16:19)
[2022-05-21 16:35] LABS: SARS PCR* Negative SARS-CoV-2 (Negative)
[2022-05-21] MEDS: PRAMIPEXOLE 0.25 MG TABLET PO (19:29)
[2022-05-21] MEDS: ATORVASTATIN CALCIUM 20 MG TABLET PO (19:29)
[2022-05-21] MEDS: MELATONIN 5 MG TABLET 10 MG PO (19:29)
[2022-05-21 23:00] VITALS: TEMP 36.5; O2SAT 99
[2022-05-22] MEDS: ASPIRIN 81 MG TAB.CHEW PO (08:03)
[2022-05-22] MEDS: allopurinoL 100 MG TABLET PO (08:03)
[2022-05-22] MEDS: CYANOCOBALAMIN (VITAMIN B-12) 500 MCG TABLET PO (08:03)
[2022-05-22] MEDS: BACITRACIN OINTMENT BULK TUBE 1 APPLIC TOPICAL ×2 (08:03→19:54)
[2022-05-22] MEDS: METFORMIN ER 500 MG 1000 MG PO ×2 (08:04→16:46)
[2022-05-22] MEDS: FUROSEMIDE 20 MG TABLET 80 MG PO (08:04)
[2022-05-22] MEDS: lisinopriL 2.5 MG TABLET PO (08:04)
[2022-05-22] MEDS: MULTIVITAMIN/MINERALS 1 TABLET 1 TAB PO (08:04)
[2022-05-22] MEDS: METOPROLOL SUCCINATE (XL) 50 MG TAB PO (08:04)
[2022-05-22] MEDS: SPIRONOLACTONE 25 MG TABLET 12.5 MG PO (08:05)
[2022-05-22 08:08] LABS: INR 2.61 (0.91-1.10); Prothrombin Time 28.3 Seconds
[2022-05-22 08:18] VITALS: PULSE 70
[2022-05-22] MEDS: DIGOXIN 125 MCG TABLET 62.5 MCG PO (08:18)
--- NOTE | 2022-05-22 10:07 | PC.NURSE ---
INR - 05/22 INR reviewed by [facility] Coumadin Nurse Zahraa. INR 2.61. New orders - 6 mg Saturday and Saturday. 4 mg all other days. Recheck 05/28.
[2022-05-22 11:20] VITALS: TEMP 36.6; O2SAT 100
--- NOTE | 2022-05-22 11:26 | PC.NURSE ---
Stool: Oliver, DRIER TENDER NAPHTHALENE here. Loose stools noted. Order: Stool for C-diff.
[2022-05-22 17:13] VITALS: TEMP 36.7; O2SAT 92
[2022-05-22] MEDS: WARFARIN 2 MG TABLET 4 MG PO (19:53)
[2022-05-22] MEDS: ATORVASTATIN CALCIUM 20 MG TABLET PO (19:54)
[2022-05-22] MEDS: PRAMIPEXOLE 0.25 MG TABLET PO (19:54)
[2022-05-22] MEDS: MELATONIN 5 MG TABLET 10 MG PO (19:54)
--- NOTE | 2022-05-22 21:08 | PC.NURSE ---
Status: Resident bit bottom L lip causing it to bleed. Pressure applied and area was able to clot. Later resident reopened area. Again pressure applied and bleeding stopped.
[2022-05-22 23:00] VITALS: TEMP 36.5; O2SAT 99
[2022-05-22 23:19] LABS: C.Difficile Negative (Negative); CDIFFEPI 027 Presumptive Negative (Negative)
[2022-05-23 07:59] VITALS: PULSE 73
[2022-05-23] MEDS: DIGOXIN 125 MCG TABLET 62.5 MCG PO (07:59)
[2022-05-23] MEDS: BACITRACIN OINTMENT BULK TUBE 1 APPLIC TOPICAL ×2 (07:59→19:44)
[2022-05-23] MEDS: ASPIRIN 81 MG TAB.CHEW PO (07:59)
[2022-05-23] MEDS: METOPROLOL SUCCINATE (XL) 50 MG TAB PO (07:59)
[2022-05-23] MEDS: allopurinoL 100 MG TABLET PO (07:59)
[2022-05-23] MEDS: FUROSEMIDE 20 MG TABLET 80 MG PO (07:59)
[2022-05-23] MEDS: METFORMIN ER 500 MG 1000 MG PO ×2 (07:59→16:43)
[2022-05-23] MEDS: MULTIVITAMIN/MINERALS 1 TABLET 1 TAB PO (07:59)
[2022-05-23] MEDS: lisinopriL 2.5 MG TABLET PO (07:59)
[2022-05-23] MEDS: CYANOCOBALAMIN (VITAMIN B-12) 500 MCG TABLET PO (07:59)
[2022-05-23] MEDS: SPIRONOLACTONE 25 MG TABLET 12.5 MG PO (08:00)
[2022-05-23 10:39] VITALS: TEMP 36.6; O2SAT 97
--- NOTE | 2022-05-23 13:49 | PC.PHA ---
Pharmacy Review~Patient admitted in February and continues on warfarin per INR results as well as lasix 80 mg daily and metformin ER 1000 mg bidwm. Most recent cr was during hospital stay. Low dose lisinopril also resumed/started in February with possible need for titration upwards but BP's have not been high. Acetaminophen prn only med. order for pain and patient has not needed any thus far in May.
[2022-05-23] MEDS: WARFARIN 3 MG TABLET 6 MG PO (16:43)
[2022-05-23] MEDS: PRAMIPEXOLE 0.25 MG TABLET PO (19:44)
[2022-05-23] MEDS: MELATONIN 5 MG TABLET 10 MG PO (19:44)
[2022-05-23] MEDS: ATORVASTATIN CALCIUM 20 MG TABLET PO (19:44)
[2022-05-23 21:35] VITALS: TEMP 36.6; O2SAT 95
--- NOTE | 2022-05-23 21:54 | PC.NURSE ---
Cath: Changed with 14 Fr. Tolerated well.
[2022-05-23 23:00] VITALS: TEMP 36.3; O2SAT 95
--- NOTE | 2022-05-24 03:39 | PC.NURSE ---
Weekly #3 Temporary Care Plan reviewed, no changes made. No additions to plan. Care Plan problems 30-39 reviewed, no changes or additions. Vital signs reviewed, within normal range. Skin warm, dry intact. Has some redness in the coccyx area d/t frequent stooling.Resident has a bashir catheter d/t urinary retention. Is continent of bowel with occasional, infrequent incontinence of bowel due to urgency. Wears an incontinent brief which staff assist with. Staff provide bolivar care and assist to toilet. resident will use call light to summon help for bowel movement.
[2022-05-24 07:00] VITALS: TEMP 36.4; O2SAT 100
--- NOTE | 2022-05-24 07:54 | PC.NURSE ---
Week #3: Care plan problems 30-39 and temporary care plan reviewed. No changes made. Nothing added to temporary care plan. Has a bashir catheter connected to leg bag during the day, emptied by staff q shift. Bag, leg bag changed q14 days. Is continent of bowels. Staff toilets per his request. Wears pull ups. Pads, bolivar cares, clothing adjustment managed by staff. Skin: No issues at this time. Continues with bacitracin oint to slit on penis. Skin is checked during cares and baths.
[2022-05-24] MEDS: METOPROLOL SUCCINATE (XL) 50 MG TAB PO (07:58)
[2022-05-24] MEDS: BACITRACIN OINTMENT BULK TUBE 1 APPLIC TOPICAL ×2 (07:58→19:57)
[2022-05-24] MEDS: SPIRONOLACTONE 25 MG TABLET 12.5 MG PO (07:58)
[2022-05-24] MEDS: FUROSEMIDE 20 MG TABLET 80 MG PO (07:58)
[2022-05-24] MEDS: ASPIRIN 81 MG TAB.CHEW PO (07:58)
[2022-05-24] MEDS: METFORMIN ER 500 MG 1000 MG PO ×2 (07:58→16:52)
[2022-05-24] MEDS: CYANOCOBALAMIN (VITAMIN B-12) 500 MCG TABLET PO (07:58)
[2022-05-24] MEDS: allopurinoL 100 MG TABLET PO (07:58)
[2022-05-24] MEDS: lisinopriL 2.5 MG TABLET PO (07:58)
[2022-05-24] MEDS: MULTIVITAMIN/MINERALS 1 TABLET 1 TAB PO (07:58)
--- NOTE | 2022-05-24 08:53 | PC.SPIRITC ---
Late Entry ? met with resident for connection and support on 05/23/22.
[2022-05-24] MEDS: LOPERAMIDE HCL 2 MG CAPSULE PO (09:52)
[2022-05-24] MEDS: WARFARIN 2 MG TABLET 4 MG PO (16:52)
[2022-05-24] MEDS: ATORVASTATIN CALCIUM 20 MG TABLET PO (19:56)
[2022-05-24] MEDS: MELATONIN 5 MG TABLET 10 MG PO (19:57)
[2022-05-24] MEDS: PRAMIPEXOLE 0.25 MG TABLET PO (19:57)
[2022-05-24 21:24] VITALS: BP 114/71; PULSE 89; RESP 16; TEMP 37.4; O2SAT 97
[2022-05-24 23:00] VITALS: TEMP 36.6; O2SAT 98
[2022-05-25 07:00] VITALS: TEMP 36.5; O2SAT 99
[2022-05-25 07:48] VITALS: PULSE 76
[2022-05-25] MEDS: lisinopriL 2.5 MG TABLET PO (07:48)
[2022-05-25] MEDS: DIGOXIN 125 MCG TABLET 62.5 MCG PO (07:48)
[2022-05-25] MEDS: METOPROLOL SUCCINATE (XL) 50 MG TAB PO (07:48)
[2022-05-25] MEDS: allopurinoL 100 MG TABLET PO (07:48)
[2022-05-25] MEDS: ASPIRIN 81 MG TAB.CHEW PO (07:48)
[2022-05-25] MEDS: METFORMIN ER 500 MG 1000 MG PO ×2 (07:48→16:28)
[2022-05-25] MEDS: BACITRACIN OINTMENT BULK TUBE 1 APPLIC TOPICAL ×2 (07:48→20:00)
[2022-05-25] MEDS: FUROSEMIDE 20 MG TABLET 80 MG PO (07:48)
[2022-05-25] MEDS: CYANOCOBALAMIN (VITAMIN B-12) 500 MCG TABLET PO (07:48)
[2022-05-25] MEDS: MULTIVITAMIN/MINERALS 1 TABLET 1 TAB PO (07:49)
[2022-05-25] MEDS: SPIRONOLACTONE 25 MG TABLET 12.5 MG PO (07:49)
[2022-05-25] MEDS: WARFARIN 3 MG TABLET 6 MG PO (16:28)
[2022-05-25 18:36] VITALS: TEMP 36.6; O2SAT 99
[2022-05-25] MEDS: ATORVASTATIN CALCIUM 20 MG TABLET PO (20:00)
[2022-05-25] MEDS: MELATONIN 5 MG TABLET 10 MG PO (20:00)
[2022-05-25] MEDS: PRAMIPEXOLE 0.25 MG TABLET PO (20:00)
[2022-05-25 23:00] VITALS: TEMP 36.8; O2SAT 99
[2022-05-26 07:00] VITALS: TEMP 36.6; O2SAT 99
[2022-05-26] MEDS: FUROSEMIDE 20 MG TABLET 80 MG PO (07:47)
[2022-05-26] MEDS: BACITRACIN OINTMENT BULK TUBE 1 APPLIC TOPICAL ×2 (07:47→19:32)
[2022-05-26] MEDS: lisinopriL 2.5 MG TABLET PO (07:47)
[2022-05-26] MEDS: MULTIVITAMIN/MINERALS 1 TABLET 1 TAB PO (07:47)
[2022-05-26] MEDS: allopurinoL 100 MG TABLET PO (07:47)
[2022-05-26] MEDS: ASPIRIN 81 MG TAB.CHEW PO (07:47)
[2022-05-26] MEDS: METOPROLOL SUCCINATE (XL) 50 MG TAB PO (07:47)
[2022-05-26] MEDS: METFORMIN ER 500 MG 1000 MG PO ×2 (07:47→15:48)
[2022-05-26] MEDS: SPIRONOLACTONE 25 MG TABLET 12.5 MG PO (07:47)
[2022-05-26] MEDS: CYANOCOBALAMIN (VITAMIN B-12) 500 MCG TABLET PO (07:47)
[2022-05-26 07:52] VITALS: PULSE 70
[2022-05-26] MEDS: DIGOXIN 125 MCG TABLET 62.5 MCG PO (07:52)
[2022-05-26] MEDS: WARFARIN 2 MG TABLET 4 MG PO (15:48)
[2022-05-26 16:42] VITALS: TEMP 36.7; O2SAT 100
[2022-05-26] MEDS: PRAMIPEXOLE 0.25 MG TABLET PO (19:32)
[2022-05-26] MEDS: MELATONIN 5 MG TABLET 10 MG PO (19:32)
[2022-05-26] MEDS: ATORVASTATIN CALCIUM 20 MG TABLET PO (19:32)
[2022-05-26 23:00] VITALS: TEMP 36.5; O2SAT 97
[2022-05-27 07:00] VITALS: TEMP 36.5; O2SAT 99
[2022-05-27] MEDS: ASPIRIN 81 MG TAB.CHEW PO (07:51)
[2022-05-27] MEDS: BACITRACIN OINTMENT BULK TUBE 1 APPLIC TOPICAL ×2 (07:51→19:48)
[2022-05-27] MEDS: allopurinoL 100 MG TABLET PO (07:51)
[2022-05-27] MEDS: FUROSEMIDE 20 MG TABLET 80 MG PO (07:52)
[2022-05-27] MEDS: MULTIVITAMIN/MINERALS 1 TABLET 1 TAB PO (07:52)
[2022-05-27] MEDS: lisinopriL 2.5 MG TABLET PO (07:52)
[2022-05-27] MEDS: METOPROLOL SUCCINATE (XL) 50 MG TAB PO (07:52)
[2022-05-27] MEDS: METFORMIN ER 500 MG 1000 MG PO ×2 (07:52→15:41)
[2022-05-27] MEDS: CYANOCOBALAMIN (VITAMIN B-12) 500 MCG TABLET PO (07:52)
[2022-05-27] MEDS: SPIRONOLACTONE 25 MG TABLET 12.5 MG PO (07:52)
[2022-05-27 08:00] VITALS: PULSE 70
[2022-05-27] MEDS: DIGOXIN 125 MCG TABLET 62.5 MCG PO (08:00)
--- NOTE | 2022-05-27 14:40 | PC.NURSE ---
Health Status: Resident C/O not able to hear well. Hearing aid batteries checked, and are working. Wax found in both ears upon examining them. Mineral oil treatment set up in the EMAR.
[2022-05-27] MEDS: WARFARIN 2 MG TABLET 4 MG PO (15:41)
[2022-05-27] MEDS: MELATONIN 5 MG TABLET 10 MG PO (19:48)
[2022-05-27] MEDS: MINERAL OIL 0.5 ML EAR-BOTH (19:48)
[2022-05-27] MEDS: PRAMIPEXOLE 0.25 MG TABLET PO (19:48)
[2022-05-27] MEDS: ATORVASTATIN CALCIUM 20 MG TABLET PO (19:48)
[2022-05-27 21:22] VITALS: TEMP 36.1; O2SAT 100
[2022-05-27 23:00] VITALS: TEMP 36.2; O2SAT 94
[2022-05-28 08:12] VITALS: PULSE 80
[2022-05-28] MEDS: DIGOXIN 125 MCG TABLET 62.5 MCG PO (08:12)
[2022-05-28] MEDS: CYANOCOBALAMIN (VITAMIN B-12) 500 MCG TABLET PO (08:12)
[2022-05-28] MEDS: lisinopriL 2.5 MG TABLET PO (08:12)
[2022-05-28] MEDS: BACITRACIN OINTMENT BULK TUBE 1 APPLIC TOPICAL ×2 (08:12→19:41)
[2022-05-28] MEDS: allopurinoL 100 MG TABLET PO (08:12)
[2022-05-28] MEDS: ASPIRIN 81 MG TAB.CHEW PO (08:12)
[2022-05-28] MEDS: FUROSEMIDE 20 MG TABLET 80 MG PO (08:12)
[2022-05-28] MEDS: METFORMIN ER 500 MG 1000 MG PO ×2 (08:12→16:50)
[2022-05-28] MEDS: MULTIVITAMIN/MINERALS 1 TABLET 1 TAB PO (08:13)
[2022-05-28] MEDS: METOPROLOL SUCCINATE (XL) 50 MG TAB PO (08:13)
[2022-05-28] MEDS: SPIRONOLACTONE 25 MG TABLET 12.5 MG PO (08:13)
[2022-05-28 09:51] LABS: INR 2.36 (0.91-1.10); Prothrombin Time 26.2 Seconds
[2022-05-28 10:39] VITALS: TEMP 36.4; O2SAT 99
--- NOTE | 2022-05-28 13:30 | PC.NURSE ---
INR: Result reviewed by [facility] Coumadin NurseMelody. Order: Coumadin 6mg MoWeFr, 4mg all other days. INR 06/04/22.
[2022-05-28 15:00] VITALS: TEMP 36.5; O2SAT 99
[2022-05-28] MEDS: LOPERAMIDE HCL 2 MG CAPSULE PO (15:28)
[2022-05-28 15:37] LABS: SARS PCR* Negative SARS-CoV-2 (Negative)
[2022-05-28] MEDS: WARFARIN 3 MG TABLET 6 MG PO (16:50)
[2022-05-28] MEDS: MINERAL OIL 0.5 ML EAR-BOTH (19:40)
[2022-05-28] MEDS: MELATONIN 5 MG TABLET 10 MG PO (19:41)
[2022-05-28] MEDS: ATORVASTATIN CALCIUM 20 MG TABLET PO (19:41)
[2022-05-28] MEDS: PRAMIPEXOLE 0.25 MG TABLET PO (19:41)
[2022-05-28 23:00] VITALS: TEMP 36.8; O2SAT 97
[2022-05-29] MEDS: allopurinoL 100 MG TABLET PO (08:08)
[2022-05-29] MEDS: BACITRACIN OINTMENT BULK TUBE 1 APPLIC TOPICAL ×2 (08:08→20:00)
[2022-05-29] MEDS: CYANOCOBALAMIN (VITAMIN B-12) 500 MCG TABLET PO (08:08)
[2022-05-29] MEDS: ASPIRIN 81 MG TAB.CHEW PO (08:08)
[2022-05-29] MEDS: METFORMIN ER 500 MG 1000 MG PO ×2 (08:10→16:38)
[2022-05-29] MEDS: lisinopriL 2.5 MG TABLET PO (08:10)
[2022-05-29] MEDS: FUROSEMIDE 20 MG TABLET 80 MG PO (08:10)
[2022-05-29] MEDS: MULTIVITAMIN/MINERALS 1 TABLET 1 TAB PO (08:10)
[2022-05-29] MEDS: SPIRONOLACTONE 25 MG TABLET 12.5 MG PO (08:10)
[2022-05-29] MEDS: METOPROLOL SUCCINATE (XL) 50 MG TAB PO (08:10)
[2022-05-29 08:16] VITALS: PULSE 82
[2022-05-29] MEDS: DIGOXIN 125 MCG TABLET 62.5 MCG PO (08:16)
[2022-05-29 10:28] VITALS: TEMP 36.7; O2SAT 100
[2022-05-29 15:00] VITALS: TEMP 36.6; O2SAT 100
[2022-05-29] MEDS: WARFARIN 2 MG TABLET 4 MG PO (16:38)
[2022-05-29] MEDS: MINERAL OIL 0.5 ML EAR-BOTH (20:00)
[2022-05-29] MEDS: ATORVASTATIN CALCIUM 20 MG TABLET PO (20:00)
[2022-05-29] MEDS: MELATONIN 5 MG TABLET 10 MG PO (20:00)
[2022-05-29] MEDS: PRAMIPEXOLE 0.25 MG TABLET PO (20:00)
[2022-05-29 23:00] VITALS: TEMP 36.7; O2SAT 98
[2022-05-30 08:15] VITALS: PULSE 80
[2022-05-30] MEDS: ASPIRIN 81 MG TAB.CHEW PO (08:15)
[2022-05-30] MEDS: BACITRACIN OINTMENT BULK TUBE 1 APPLIC TOPICAL ×2 (08:15→20:12)
[2022-05-30] MEDS: allopurinoL 100 MG TABLET PO (08:15)
[2022-05-30] MEDS: CYANOCOBALAMIN (VITAMIN B-12) 500 MCG TABLET PO (08:15)
[2022-05-30] MEDS: DIGOXIN 125 MCG TABLET 62.5 MCG PO (08:15)
[2022-05-30] MEDS: SPIRONOLACTONE 25 MG TABLET 12.5 MG PO (08:16)
[2022-05-30] MEDS: MULTIVITAMIN/MINERALS 1 TABLET 1 TAB PO (08:16)
[2022-05-30] MEDS: METOPROLOL SUCCINATE (XL) 50 MG TAB PO (08:16)
[2022-05-30] MEDS: lisinopriL 2.5 MG TABLET PO (08:16)
[2022-05-30] MEDS: FUROSEMIDE 20 MG TABLET 80 MG PO (08:16)
[2022-05-30] MEDS: METFORMIN ER 500 MG 1000 MG PO ×2 (08:16→16:18)
[2022-05-30 11:21] VITALS: TEMP 36.5; O2SAT 99
[2022-05-30] MEDS: LOPERAMIDE HCL 2 MG CAPSULE 4 MG PO (14:07)
[2022-05-30] MEDS: WARFARIN 3 MG TABLET 6 MG PO (16:18)
[2022-05-30] MEDS: ATORVASTATIN CALCIUM 20 MG TABLET PO (20:12)
[2022-05-30] MEDS: MELATONIN 5 MG TABLET 10 MG PO (20:13)
[2022-05-30] MEDS: PRAMIPEXOLE 0.25 MG TABLET PO (20:13)
--- NOTE | 2022-05-30 21:25 | PC.NURSE ---
Ears: Both ears lavaged moderate amount came out of left ear. Resident stated that he could hear again.
[2022-05-31 08:37] VITALS: PULSE 88
[2022-05-31] MEDS: DIGOXIN 125 MCG TABLET 62.5 MCG PO (08:37)
[2022-05-31] MEDS: CYANOCOBALAMIN (VITAMIN B-12) 500 MCG TABLET PO (08:37)
[2022-05-31] MEDS: BACITRACIN OINTMENT BULK TUBE 1 APPLIC TOPICAL ×2 (08:37→19:56)
[2022-05-31] MEDS: ASPIRIN 81 MG TAB.CHEW PO (08:37)
[2022-05-31] MEDS: allopurinoL 100 MG TABLET PO (08:37)
[2022-05-31] MEDS: lisinopriL 2.5 MG TABLET PO (08:37)
[2022-05-31] MEDS: FUROSEMIDE 20 MG TABLET 80 MG PO (08:37)
[2022-05-31] MEDS: METFORMIN ER 500 MG 1000 MG PO ×2 (08:37→16:40)
[2022-05-31] MEDS: METOPROLOL SUCCINATE (XL) 50 MG TAB PO (08:37)
[2022-05-31] MEDS: MULTIVITAMIN/MINERALS 1 TABLET 1 TAB PO (08:38)
[2022-05-31] MEDS: SPIRONOLACTONE 25 MG TABLET 12.5 MG PO (08:38)
--- NOTE | 2022-05-31 11:02 | PC.NURSE ---
Week #4: Care plan problems 40-119 and temporary care plan reviewed. No changes made. Nothing added to temporary care plan. No changes noted in communication, hearing, vision, & orientation. He does communicate needs and use the call light. Has bilateral hearing aids, wears glasses. Health condition stable. Does not self administer medications. Mood/Behavior: Has no issues. Is on no psychotropic medications.
--- NOTE | 2022-05-31 12:50 | PC.NURSE ---
Status/Order: Oliver DOUGHERTY here. Updated resident continues to have loose BM's. Order: Loperamide 4mg BID.
[2022-05-31] MEDS: WARFARIN 2 MG TABLET 4 MG PO (16:39)
[2022-05-31] MEDS: LOPERAMIDE HCL 2 MG CAPSULE 4 MG PO (16:41)
[2022-05-31] MEDS: ATORVASTATIN CALCIUM 20 MG TABLET PO (19:56)
[2022-05-31] MEDS: PRAMIPEXOLE 0.25 MG TABLET PO (19:56)
[2022-05-31] MEDS: MELATONIN 5 MG TABLET 10 MG PO (19:56)
[2022-05-31 21:44] VITALS: TEMP 36.6; O2SAT 98
--- NOTE | 2022-06-01 03:14 | PC.NURSE ---
Week #4---care plan problems #40+ reviewed. No changes made. Temporary care plan updated re: increased incidence of loose stools. Was checked for C-diff which was negative. New order from yesterday: Imodium 4 mg BID. Has been using call light for needs. No changes noted in hearing, vision, or orientation. No behavior problems at [facility]. Sleeps soundly. Is on no psychotropic meds.
[2022-06-01 08:11] VITALS: PULSE 80
[2022-06-01] MEDS: BACITRACIN OINTMENT BULK TUBE 1 APPLIC TOPICAL ×2 (08:11→20:09)
[2022-06-01] MEDS: CYANOCOBALAMIN (VITAMIN B-12) 500 MCG TABLET PO (08:11)
[2022-06-01] MEDS: ASPIRIN 81 MG TAB.CHEW PO (08:11)
[2022-06-01] MEDS: METFORMIN ER 500 MG 1000 MG PO ×2 (08:11→16:00)
[2022-06-01] MEDS: lisinopriL 2.5 MG TABLET PO (08:11)
[2022-06-01] MEDS: FUROSEMIDE 20 MG TABLET 80 MG PO (08:11)
[2022-06-01] MEDS: METOPROLOL SUCCINATE (XL) 50 MG TAB PO (08:11)
[2022-06-01] MEDS: LOPERAMIDE HCL 2 MG CAPSULE 4 MG PO ×2 (08:11→16:00)
[2022-06-01] MEDS: allopurinoL 100 MG TABLET PO (08:11)
[2022-06-01] MEDS: SPIRONOLACTONE 25 MG TABLET 12.5 MG PO (08:11)
[2022-06-01] MEDS: MULTIVITAMIN/MINERALS 1 TABLET 1 TAB PO (08:11)
[2022-06-01] MEDS: DIGOXIN 125 MCG TABLET 62.5 MCG PO (08:11)
[2022-06-01] MEDS: WARFARIN 3 MG TABLET 6 MG PO (16:00)
[2022-06-01] MEDS: PRAMIPEXOLE 0.25 MG TABLET PO (20:09)
[2022-06-01] MEDS: MELATONIN 5 MG TABLET 10 MG PO (20:09)
[2022-06-01] MEDS: ATORVASTATIN CALCIUM 20 MG TABLET PO (20:09)
[2022-06-01 21:59] VITALS: TEMP 37.5; O2SAT 97
[2022-06-02] MEDS: allopurinoL 100 MG TABLET PO (08:03)
[2022-06-02] MEDS: LOPERAMIDE HCL 2 MG CAPSULE 4 MG PO ×2 (08:04→16:51)
[2022-06-02] MEDS: BACITRACIN OINTMENT BULK TUBE 1 APPLIC TOPICAL ×2 (08:04→20:29)
[2022-06-02] MEDS: ASPIRIN 81 MG TAB.CHEW PO (08:04)
[2022-06-02] MEDS: CYANOCOBALAMIN (VITAMIN B-12) 500 MCG TABLET PO (08:04)
[2022-06-02] MEDS: lisinopriL 2.5 MG TABLET PO (08:04)
[2022-06-02] MEDS: FUROSEMIDE 20 MG TABLET 80 MG PO (08:04)
[2022-06-02] MEDS: SPIRONOLACTONE 25 MG TABLET 12.5 MG PO (08:05)
[2022-06-02] MEDS: METOPROLOL SUCCINATE (XL) 50 MG TAB PO (08:05)
[2022-06-02] MEDS: MULTIVITAMIN/MINERALS 1 TABLET 1 TAB PO (08:05)
[2022-06-02] MEDS: METFORMIN ER 500 MG 1000 MG PO ×2 (08:05→16:51)
[2022-06-02 08:16] VITALS: PULSE 88
[2022-06-02] MEDS: DIGOXIN 125 MCG TABLET 62.5 MCG PO (08:16)
[2022-06-02] MEDS: WARFARIN 2 MG TABLET 4 MG PO (16:50)
[2022-06-02] MEDS: ATORVASTATIN CALCIUM 20 MG TABLET PO (20:29)
[2022-06-02] MEDS: MELATONIN 5 MG TABLET 10 MG PO (20:30)
[2022-06-02] MEDS: PRAMIPEXOLE 0.25 MG TABLET PO (20:30)
[2022-06-02 22:00] VITALS: TEMP 37.6; O2SAT 97
[2022-06-03] MEDS: allopurinoL 100 MG TABLET PO (08:45)
[2022-06-03] MEDS: ASPIRIN 81 MG TAB.CHEW PO (08:45)
[2022-06-03 08:46] VITALS: PULSE 64
[2022-06-03] MEDS: FUROSEMIDE 20 MG TABLET 80 MG PO (08:46)
[2022-06-03] MEDS: BACITRACIN OINTMENT BULK TUBE 1 APPLIC TOPICAL ×2 (08:46→20:09)
[2022-06-03] MEDS: CYANOCOBALAMIN (VITAMIN B-12) 500 MCG TABLET PO (08:46)
[2022-06-03] MEDS: DIGOXIN 125 MCG TABLET 62.5 MCG PO (08:46)
[2022-06-03] MEDS: MULTIVITAMIN/MINERALS 1 TABLET 1 TAB PO (08:47)
[2022-06-03] MEDS: METFORMIN ER 500 MG 1000 MG PO ×2 (08:47→16:44)
[2022-06-03] MEDS: LOPERAMIDE HCL 2 MG CAPSULE 4 MG PO ×2 (08:47→16:44)
[2022-06-03] MEDS: METOPROLOL SUCCINATE (XL) 50 MG TAB PO (08:47)
[2022-06-03] MEDS: lisinopriL 2.5 MG TABLET PO (08:47)
[2022-06-03] MEDS: SPIRONOLACTONE 25 MG TABLET 12.5 MG PO (08:48)
[2022-06-03] MEDS: WARFARIN 2 MG TABLET 4 MG PO (16:44)
[2022-06-03 18:37] VITALS: TEMP 37.1; O2SAT 99
[2022-06-03] MEDS: PRAMIPEXOLE 0.25 MG TABLET PO (20:09)
[2022-06-03] MEDS: ATORVASTATIN CALCIUM 20 MG TABLET PO (20:09)
[2022-06-03] MEDS: MELATONIN 5 MG TABLET 10 MG PO (20:09)
[2022-06-04 09:00] VITALS: PULSE 80
[2022-06-04] MEDS: ASPIRIN 81 MG TAB.CHEW PO (09:00)
[2022-06-04] MEDS: CYANOCOBALAMIN (VITAMIN B-12) 500 MCG TABLET PO (09:00)
[2022-06-04] MEDS: allopurinoL 100 MG TABLET PO (09:00)
[2022-06-04] MEDS: DIGOXIN 125 MCG TABLET 62.5 MCG PO (09:00)
[2022-06-04] MEDS: BACITRACIN OINTMENT BULK TUBE 1 APPLIC TOPICAL ×2 (09:00→19:37)
[2022-06-04] MEDS: FUROSEMIDE 20 MG TABLET 80 MG PO (09:02)
[2022-06-04] MEDS: lisinopriL 2.5 MG TABLET PO (09:06)
[2022-06-04] MEDS: LOPERAMIDE HCL 2 MG CAPSULE 4 MG PO ×2 (09:07→16:41)
[2022-06-04] MEDS: METOPROLOL SUCCINATE (XL) 50 MG TAB PO (09:07)
[2022-06-04] MEDS: METFORMIN ER 500 MG 1000 MG PO ×2 (09:07→16:41)
[2022-06-04] MEDS: SPIRONOLACTONE 25 MG TABLET 12.5 MG PO (09:08)
[2022-06-04] MEDS: MULTIVITAMIN/MINERALS 1 TABLET 1 TAB PO (09:08)
[2022-06-04 10:27] LABS: INR 2.17 (0.91-1.10); Prothrombin Time 24.6 Seconds
--- NOTE | 2022-06-04 12:15 | PC.NURSE ---
INR: Result reviewed by [facility] Coumadin NurseZahraa. Order: Coumadin 5 mg daily, INR on 06/11/22.
[2022-06-04] MEDS: WARFARIN 5 MG TABLET PO (16:38)
[2022-06-04] MEDS: MELATONIN 5 MG TABLET 10 MG PO (19:37)
[2022-06-04] MEDS: ATORVASTATIN CALCIUM 20 MG TABLET PO (19:37)
[2022-06-04] MEDS: PRAMIPEXOLE 0.25 MG TABLET PO (19:37)
[2022-06-05] MEDS: ASPIRIN 81 MG TAB.CHEW PO (07:58)
[2022-06-05] MEDS: allopurinoL 100 MG TABLET PO (07:58)
[2022-06-05] MEDS: FUROSEMIDE 20 MG TABLET 80 MG PO (07:59)
[2022-06-05] MEDS: lisinopriL 2.5 MG TABLET PO (07:59)
[2022-06-05] MEDS: METFORMIN ER 500 MG 1000 MG PO ×2 (07:59→16:30)
[2022-06-05] MEDS: BACITRACIN OINTMENT BULK TUBE 1 APPLIC TOPICAL ×2 (07:59→19:18)
[2022-06-05] MEDS: LOPERAMIDE HCL 2 MG CAPSULE 4 MG PO ×2 (07:59→16:30)
[2022-06-05] MEDS: CYANOCOBALAMIN (VITAMIN B-12) 500 MCG TABLET PO (07:59)
[2022-06-05] MEDS: METOPROLOL SUCCINATE (XL) 50 MG TAB PO (08:00)
[2022-06-05] MEDS: SPIRONOLACTONE 25 MG TABLET 12.5 MG PO (08:00)
[2022-06-05] MEDS: MULTIVITAMIN/MINERALS 1 TABLET 1 TAB PO (08:00)
[2022-06-05 08:03] VITALS: PULSE 55
[2022-06-05] MEDS: DIGOXIN 125 MCG TABLET 62.5 MCG PO (08:03)
[2022-06-05] MEDS: WARFARIN 5 MG TABLET PO (16:30)
[2022-06-05 17:10] VITALS: TEMP 37.7; O2SAT 98
[2022-06-05] MEDS: ATORVASTATIN CALCIUM 20 MG TABLET PO (19:18)
[2022-06-05] MEDS: PRAMIPEXOLE 0.25 MG TABLET PO (19:18)
[2022-06-05] MEDS: MELATONIN 5 MG TABLET 10 MG PO (19:18)
[2022-06-06] MEDS: allopurinoL 100 MG TABLET PO (08:28)
[2022-06-06] MEDS: ASPIRIN 81 MG TAB.CHEW PO (08:28)
[2022-06-06 08:29] VITALS: PULSE 85
[2022-06-06] MEDS: SPIRONOLACTONE 25 MG TABLET 12.5 MG PO (08:29)
[2022-06-06] MEDS: CYANOCOBALAMIN (VITAMIN B-12) 500 MCG TABLET PO (08:29)
[2022-06-06] MEDS: BACITRACIN OINTMENT BULK TUBE 1 APPLIC TOPICAL ×2 (08:29→19:08)
[2022-06-06] MEDS: DIGOXIN 125 MCG TABLET 62.5 MCG PO (08:29)
[2022-06-06] MEDS: lisinopriL 2.5 MG TABLET PO (08:29)
[2022-06-06] MEDS: METOPROLOL SUCCINATE (XL) 50 MG TAB PO (08:29)
[2022-06-06] MEDS: LOPERAMIDE HCL 2 MG CAPSULE 4 MG PO ×2 (08:29→16:06)
[2022-06-06] MEDS: MULTIVITAMIN/MINERALS 1 TABLET 1 TAB PO (08:29)
[2022-06-06] MEDS: METFORMIN ER 500 MG 1000 MG PO ×2 (08:29→16:06)
[2022-06-06] MEDS: FUROSEMIDE 20 MG TABLET 80 MG PO (08:29)
--- NOTE | 2022-06-06 12:18 | PC.NURSE ---
Skin assessment complete - Skin assessment for redness around groin has been completed. No redness or rashiness noted for multiple days. Skin appearance has returned to baseline. Pt reports no itchiness, pain, or discomfort.
--- NOTE | 2022-06-06 14:02 | PC.SPIRITC ---
Supervisor Phosphoric Acid provided visit for support and connection.
[2022-06-06] MEDS: WARFARIN 5 MG TABLET PO (16:06)
[2022-06-06] MEDS: ATORVASTATIN CALCIUM 20 MG TABLET PO (19:08)
[2022-06-06] MEDS: PRAMIPEXOLE 0.25 MG TABLET PO (19:08)
[2022-06-06] MEDS: MELATONIN 5 MG TABLET 10 MG PO (19:08)
[2022-06-06 21:21] VITALS: TEMP 37.6; O2SAT 98
--- NOTE | 2022-06-07 02:52 | PC.NURSE ---
Weekly #1 Care plan problems 12-04 reviewed, no changes or additions made. Temporary carre plan reviewed, no changes or additions. VS reviewed and are stable and within normal limits. Res has no pain reported in past week. Has PRN Tylenol but has not requested. Res is not dressed or groomed on noc shift. Sleeps throughout the noc with occasional toileting. Uses call light and requests help to bathroom.Res does not eat on noc shift.
[2022-06-07] MEDS: allopurinoL 100 MG TABLET PO (07:49)
[2022-06-07] MEDS: FUROSEMIDE 20 MG TABLET 80 MG PO (07:49)
[2022-06-07] MEDS: METFORMIN ER 500 MG 1000 MG PO ×2 (07:49→16:59)
[2022-06-07] MEDS: METOPROLOL SUCCINATE (XL) 50 MG TAB PO (07:49)
[2022-06-07] MEDS: MULTIVITAMIN/MINERALS 1 TABLET 1 TAB PO (07:49)
[2022-06-07] MEDS: LOPERAMIDE HCL 2 MG CAPSULE 4 MG PO ×2 (07:49→16:59)
[2022-06-07] MEDS: SPIRONOLACTONE 25 MG TABLET 12.5 MG PO (07:49)
[2022-06-07] MEDS: ASPIRIN 81 MG TAB.CHEW PO (07:49)
[2022-06-07] MEDS: lisinopriL 2.5 MG TABLET PO (07:49)
[2022-06-07] MEDS: BACITRACIN OINTMENT BULK TUBE 1 APPLIC TOPICAL ×2 (07:49→19:58)
[2022-06-07] MEDS: CYANOCOBALAMIN (VITAMIN B-12) 500 MCG TABLET PO (07:49)
[2022-06-07 07:54] VITALS: PULSE 71
[2022-06-07] MEDS: DIGOXIN 125 MCG TABLET 62.5 MCG PO (07:54)
--- NOTE | 2022-06-07 08:07 | PC.NURSE ---
Week #1: Care plan problems 1-19 and temporary care plan reviewed. No changes made. Nothing added to temporary care plan. Resident needs one assist with dressing, grooming and bathing. Is able to participate. Does oral cares after set up.Feed self. Uses a built up foam handled silver wares. Is on 2gm sodium & low fat diet. No problems noted with chewing or swallowing. Pain: Has no complain of pain. Is on no scheduled pain medication. Has an order for Tylenol 650mg Q4H PRN. He is able to make needs known.
[2022-06-07] MEDS: WARFARIN 5 MG TABLET PO (16:59)
[2022-06-07 18:51] VITALS: BP 104/68; PULSE 77; RESP 16; TEMP 37.3; O2SAT 96
[2022-06-07] MEDS: ATORVASTATIN CALCIUM 20 MG TABLET PO (19:58)
[2022-06-07] MEDS: MELATONIN 5 MG TABLET 10 MG PO (19:58)
[2022-06-07] MEDS: PRAMIPEXOLE 0.25 MG TABLET PO (20:00)
--- NOTE | 2022-06-07 20:46 | PC.NURSE ---
Resident is requesting that he'd be cleared to use his walker independently or assist of 1 during the day. OFE let resident know that he'd need to meet with his doctors to be cleared. Resident is requesting assistance with scheduling an appointment with doctor and/or physical therapist to be cleared to use his walker. OFE notified nurse.
[2022-06-08] MEDS: METFORMIN ER 500 MG 1000 MG PO ×2 (07:52→16:00)
[2022-06-08] MEDS: lisinopriL 2.5 MG TABLET PO (07:52)
[2022-06-08] MEDS: MULTIVITAMIN/MINERALS 1 TABLET 1 TAB PO (07:52)
[2022-06-08] MEDS: allopurinoL 100 MG TABLET PO (07:52)
[2022-06-08] MEDS: CYANOCOBALAMIN (VITAMIN B-12) 500 MCG TABLET PO (07:52)
[2022-06-08] MEDS: METOPROLOL SUCCINATE (XL) 50 MG TAB PO (07:52)
[2022-06-08] MEDS: SPIRONOLACTONE 25 MG TABLET 12.5 MG PO (07:52)
[2022-06-08] MEDS: BACITRACIN OINTMENT BULK TUBE 1 APPLIC TOPICAL ×2 (07:52→19:33)
[2022-06-08] MEDS: LOPERAMIDE HCL 2 MG CAPSULE 4 MG PO ×2 (07:52→16:00)
[2022-06-08] MEDS: FUROSEMIDE 20 MG TABLET 80 MG PO (07:52)
[2022-06-08] MEDS: ASPIRIN 81 MG TAB.CHEW PO (07:52)
[2022-06-08 08:04] VITALS: PULSE 78
[2022-06-08] MEDS: DIGOXIN 125 MCG TABLET 62.5 MCG PO (08:04)
--- NOTE | 2022-06-08 13:46 | PC.NURSE ---
Eye Concerns: Resident reported pain to right eye as he stated, I poked my right eye with my finger three days ago, but it started hurting since yesterday, so I need to see the eye doctor. Family notified and updated by charged nurse. Recommendation made to family for eye appointment. Eye was assessed - it is slightly red. Will continue to monitor.
[2022-06-08] MEDS: WARFARIN 5 MG TABLET PO (16:00)
[2022-06-08] MEDS: PRAMIPEXOLE 0.25 MG TABLET PO (19:33)
[2022-06-08] MEDS: MELATONIN 5 MG TABLET 10 MG PO (19:33)
[2022-06-08] MEDS: ATORVASTATIN CALCIUM 20 MG TABLET PO (19:33)
[2022-06-08 21:27] VITALS: TEMP 37.2; O2SAT 97
[2022-06-09] MEDS: BACITRACIN OINTMENT BULK TUBE 1 APPLIC TOPICAL ×2 (08:04→19:38)
[2022-06-09] MEDS: allopurinoL 100 MG TABLET PO (08:04)
[2022-06-09] MEDS: lisinopriL 2.5 MG TABLET PO (08:04)
[2022-06-09] MEDS: LOPERAMIDE HCL 2 MG CAPSULE 4 MG PO ×2 (08:04→16:13)
[2022-06-09] MEDS: METFORMIN ER 500 MG 1000 MG PO ×2 (08:04→16:13)
[2022-06-09] MEDS: CYANOCOBALAMIN (VITAMIN B-12) 500 MCG TABLET PO (08:04)
[2022-06-09] MEDS: FUROSEMIDE 20 MG TABLET 80 MG PO (08:04)
[2022-06-09] MEDS: ASPIRIN 81 MG TAB.CHEW PO (08:04)
[2022-06-09] MEDS: METOPROLOL SUCCINATE (XL) 50 MG TAB PO (08:04)
[2022-06-09] MEDS: MULTIVITAMIN/MINERALS 1 TABLET 1 TAB PO (08:04)
[2022-06-09] MEDS: SPIRONOLACTONE 25 MG TABLET 12.5 MG PO (08:05)
[2022-06-09 08:10] VITALS: PULSE 75
[2022-06-09] MEDS: DIGOXIN 125 MCG TABLET 62.5 MCG PO (08:10)
[2022-06-09] MEDS: WARFARIN 5 MG TABLET PO (16:13)
[2022-06-09 17:03] VITALS: TEMP 37; O2SAT 98
[2022-06-09] MEDS: MELATONIN 5 MG TABLET 10 MG PO (19:38)
[2022-06-09] MEDS: ATORVASTATIN CALCIUM 20 MG TABLET PO (19:38)
[2022-06-09] MEDS: PRAMIPEXOLE 0.25 MG TABLET PO (19:39)
[2022-06-10 08:05] VITALS: PULSE 83
[2022-06-10] MEDS: ASPIRIN 81 MG TAB.CHEW PO (08:05)
[2022-06-10] MEDS: CYANOCOBALAMIN (VITAMIN B-12) 500 MCG TABLET PO (08:05)
[2022-06-10] MEDS: allopurinoL 100 MG TABLET PO (08:05)
[2022-06-10] MEDS: DIGOXIN 125 MCG TABLET 62.5 MCG PO (08:05)
[2022-06-10] MEDS: BACITRACIN OINTMENT BULK TUBE 1 APPLIC TOPICAL ×2 (08:05→19:24)
[2022-06-10] MEDS: lisinopriL 2.5 MG TABLET PO (08:06)
[2022-06-10] MEDS: LOPERAMIDE HCL 2 MG CAPSULE 4 MG PO ×2 (08:06→15:55)
[2022-06-10] MEDS: SPIRONOLACTONE 25 MG TABLET 12.5 MG PO (08:06)
[2022-06-10] MEDS: FUROSEMIDE 20 MG TABLET 80 MG PO (08:06)
[2022-06-10] MEDS: METOPROLOL SUCCINATE (XL) 50 MG TAB PO (08:06)
[2022-06-10] MEDS: METFORMIN ER 500 MG 1000 MG PO ×2 (08:06→15:55)
[2022-06-10] MEDS: MULTIVITAMIN/MINERALS 1 TABLET 1 TAB PO (08:06)
[2022-06-10] MEDS: WARFARIN 5 MG TABLET PO (15:55)
[2022-06-10 17:15] VITALS: TEMP 36.8; O2SAT 99
[2022-06-10] MEDS: MELATONIN 5 MG TABLET 10 MG PO (19:24)
[2022-06-10] MEDS: PRAMIPEXOLE 0.25 MG TABLET PO (19:24)
[2022-06-10] MEDS: ATORVASTATIN CALCIUM 20 MG TABLET PO (19:24)
[2022-06-11 07:55] LABS: INR 2.65 (0.91-1.10); Prothrombin Time 28.6 Seconds
[2022-06-11 08:40] VITALS: PULSE 87
[2022-06-11] MEDS: CYANOCOBALAMIN (VITAMIN B-12) 500 MCG TABLET PO (08:40)
[2022-06-11] MEDS: FUROSEMIDE 20 MG TABLET 80 MG PO (08:40)
[2022-06-11] MEDS: METOPROLOL SUCCINATE (XL) 50 MG TAB PO (08:40)
[2022-06-11] MEDS: BACITRACIN OINTMENT BULK TUBE 1 APPLIC TOPICAL ×2 (08:40→19:48)
[2022-06-11] MEDS: allopurinoL 100 MG TABLET PO (08:40)
[2022-06-11] MEDS: lisinopriL 2.5 MG TABLET PO (08:40)
[2022-06-11] MEDS: ASPIRIN 81 MG TAB.CHEW PO (08:40)
[2022-06-11] MEDS: DIGOXIN 125 MCG TABLET 62.5 MCG PO (08:40)
[2022-06-11] MEDS: METFORMIN ER 500 MG 1000 MG PO ×2 (08:40→16:23)
[2022-06-11] MEDS: LOPERAMIDE HCL 2 MG CAPSULE 4 MG PO ×2 (08:40→16:23)
[2022-06-11] MEDS: MULTIVITAMIN/MINERALS 1 TABLET 1 TAB PO (08:41)
[2022-06-11] MEDS: SPIRONOLACTONE 25 MG TABLET 12.5 MG PO (08:41)
--- NOTE | 2022-06-11 09:00 | PC.NURSE ---
COVID TESTING: Resident had a high-risk exposure to a COVID+ resident. Is experiencing a cough. Resident consented to testing. Will update family and resident if positive.
--- NOTE | 2022-06-11 10:21 | PC.NURSE ---
INR - 2.65. Coumadin clinic nurse - Coumadin 5 mg daily. Recheck INR 06/26. RBVA
--- NOTE | 2022-06-11 14:17 | REH.OT ---
Hot Liquid Safety Eval Patient is limited by physical deficits with with weakness and neuropathy Only drink hot liquids at the table Use covered mug
[2022-06-11 15:00] VITALS: TEMP 36.7; O2SAT 97
[2022-06-11 16:21] LABS: SARS PCR* Negative SARS-CoV-2 (Negative)
[2022-06-11] MEDS: WARFARIN 5 MG TABLET PO (16:23)
[2022-06-11] MEDS: MELATONIN 5 MG TABLET 10 MG PO (19:48)
[2022-06-11] MEDS: ATORVASTATIN CALCIUM 20 MG TABLET PO (19:48)
[2022-06-11] MEDS: PRAMIPEXOLE 0.25 MG TABLET PO (19:48)
[2022-06-11] MEDS: guaiFENesin 100 MG/ML CUP PO (21:51)
--- NOTE | 2022-06-11 22:18 | PC.NURSE ---
COVID-19 Test: Resident was test for COVID -19 at approximately, 1500 06/11/22. Test result is negative.
[2022-06-11 23:00] VITALS: TEMP 36.1; O2SAT 100
--- NOTE | 2022-06-12 05:13 | PC.NURSE ---
Status---no c/o's coughing during the noc. States the cough medicine he had earlier really helped. Temp 97. O2 sat 100% on room air.
[2022-06-12 08:06] VITALS: PULSE 69
[2022-06-12] MEDS: LOPERAMIDE HCL 2 MG CAPSULE 4 MG PO ×2 (08:06→16:33)
[2022-06-12] MEDS: BACITRACIN OINTMENT BULK TUBE 1 APPLIC TOPICAL (08:06)
[2022-06-12] MEDS: allopurinoL 100 MG TABLET PO (08:06)
[2022-06-12] MEDS: METFORMIN ER 500 MG 1000 MG PO ×2 (08:06→16:33)
[2022-06-12] MEDS: FUROSEMIDE 20 MG TABLET 80 MG PO (08:06)
[2022-06-12] MEDS: lisinopriL 2.5 MG TABLET PO (08:06)
[2022-06-12] MEDS: CYANOCOBALAMIN (VITAMIN B-12) 500 MCG TABLET PO (08:06)
[2022-06-12] MEDS: METOPROLOL SUCCINATE (XL) 50 MG TAB PO (08:06)
[2022-06-12] MEDS: DIGOXIN 125 MCG TABLET 62.5 MCG PO (08:06)
[2022-06-12] MEDS: ASPIRIN 81 MG TAB.CHEW PO (08:06)
[2022-06-12] MEDS: MULTIVITAMIN/MINERALS 1 TABLET 1 TAB PO (08:07)
[2022-06-12] MEDS: SPIRONOLACTONE 25 MG TABLET 12.5 MG PO (09:03)
[2022-06-12 10:43] VITALS: TEMP 36.7; O2SAT 97
--- NOTE | 2022-06-12 13:00 | PC.NURSE ---
CARE CONFERENCE: Resident present. Sons were invited via zoom meeting but were not on the line. Nursing, PT, and SW present. Resident reports that he is getting great care. His mood is stable. He loves spending time outside in the sun on the patio and going to activities. He also notes that he loves the food--no dietary changes noted and resident weight is stable. Residents family brings in seasoning and hot sauce for him, which he really enjoys. Nursing discussed recent bouts of loose stools, suggested maybe it is the hot sauce he is using. Resident concurs, notes that maybe the immodium is helping. Nursing will continue to monitor. Resident requests that he would like to be walking more, will update nursing staff. Instructed resident to call and ask for staff to walk with him--he agrees to do this. Continues to have bed/chair alarms in place for safety, does self transfer at times. Care plan reviewed and updated. POLST/Code status reviewed, remains full code. Uses no restraints. Does use 2 side rails up to assist with positioning. Vulnerability- is at risk for being harmed due to weakness and intermittent confusion. No plans for discharge at this time.
--- NOTE | 2022-06-12 14:13 | PC.SOCIAL ---
Resident's care conference was held today. No family was present. Resident is hoping to walk more with his walker rather than use his wheelchair. Nursing is looking into this with therapies recommendations. Resident's mood has been stable and son's are supportive. Resident enjoys going outside daily after meals. Care plan has been reviewed.
[2022-06-12 14:58] VITALS: BMI 22.0
[2022-06-12] MEDS: MELATONIN 5 MG TABLET 10 MG PO (19:24)
[2022-06-12] MEDS: WARFARIN 5 MG TABLET PO (19:24)
[2022-06-12] MEDS: ATORVASTATIN CALCIUM 20 MG TABLET PO (19:24)
[2022-06-12] MEDS: PRAMIPEXOLE 0.25 MG TABLET PO (19:25)
[2022-06-12 21:48] VITALS: TEMP 36.8; O2SAT 98
--- NOTE | 2022-06-12 22:05 | PC.NURSE ---
Hearing Aide: Resident missing R hearing aide. Resident unable to recall when he had it last. Room, wheelchair, dinning room and patio checked. Staff unable to locate.
[2022-06-12 23:00] VITALS: TEMP 36.6; O2SAT 99
[2022-06-13 08:53] VITALS: PULSE 69
[2022-06-13] MEDS: allopurinoL 100 MG TABLET PO (08:53)
[2022-06-13] MEDS: CYANOCOBALAMIN (VITAMIN B-12) 500 MCG TABLET PO (08:53)
[2022-06-13] MEDS: DIGOXIN 125 MCG TABLET 62.5 MCG PO (08:53)
[2022-06-13] MEDS: ASPIRIN 81 MG TAB.CHEW PO (08:53)
[2022-06-13] MEDS: BACITRACIN OINTMENT BULK TUBE 1 APPLIC TOPICAL ×2 (08:53→19:34)
[2022-06-13] MEDS: METOPROLOL SUCCINATE (XL) 50 MG TAB PO (08:54)
[2022-06-13] MEDS: MULTIVITAMIN/MINERALS 1 TABLET 1 TAB PO (08:54)
[2022-06-13] MEDS: METFORMIN ER 500 MG 1000 MG PO ×2 (08:54→15:18)
[2022-06-13] MEDS: lisinopriL 2.5 MG TABLET PO (08:54)
[2022-06-13] MEDS: FUROSEMIDE 20 MG TABLET 80 MG PO (08:54)
[2022-06-13] MEDS: LOPERAMIDE HCL 2 MG CAPSULE 4 MG PO ×2 (08:54→15:18)
[2022-06-13] MEDS: SPIRONOLACTONE 25 MG TABLET 12.5 MG PO (08:55)
[2022-06-13 09:58] VITALS: TEMP 36.6; O2SAT 98
[2022-06-13 10:56] LABS: Chloride* 94 mmol/L (96-114); Sodium* 134 mmol/L (135-149)
[2022-06-13 10:57] LABS: Potassium* 4.5 mmol/L (3.6-5.1)
[2022-06-13 10:59] LABS: Blood Urea Nitrogen* 58 mg/dL (7-30); Carbon Dioxide* 29 mmol/L (20-32); Creatinine* 1.4 mg/dL (0.5-1.5); Est. Creatinine Clearance* 36.79; Estimated Glomerular Filt Rate 50 ml/min
[2022-06-13 11:00] LABS: Calcium* 9.2 mg/dL (8.4-10.6); Glucose* 241 mg/dL (60-115)
[2022-06-13 11:56] LABS: SARS PCR* Negative SARS-CoV-2 (Negative)
--- NOTE | 2022-06-13 14:35 | PC.NURSE ---
Status: Unable to leave a message on POA, voice mail is full.
--- NOTE | 2022-06-13 14:42 | PC.NURSE ---
MISSING HEIN: spoke to son, Devin, regarding lost hearing aide. He notes that these are cheapies but they would be interested in having him see in-house services when they come in July. Will add resident to the list. Devin will let his brother, Dax, know about this as well.
[2022-06-13] MEDS: WARFARIN 5 MG TABLET PO (15:18)
[2022-06-13] MEDS: ATORVASTATIN CALCIUM 20 MG TABLET PO (19:34)
[2022-06-13] MEDS: MELATONIN 5 MG TABLET 10 MG PO (19:34)
[2022-06-13] MEDS: PRAMIPEXOLE 0.25 MG TABLET PO (19:35)
[2022-06-13 21:24] VITALS: TEMP 36.7; O2SAT 92
[2022-06-13 23:00] VITALS: TEMP 36.8; O2SAT 97
--- NOTE | 2022-06-14 03:18 | PC.NURSE ---
Week #2---care plan problems #20-29 reviewed. No changes made. Nothing added to temporary care plan. Is independent with bed mobility. Does call for assist to the BR. Transfers to w/c with TB and SBA of 1. Staff wheel res. to and from the BR. Has top siderails up when in bed and bed exit alarm on. Falls---no falls this past month. Does remain a high fall risk according to assessment done on 03/23/22.
[2022-06-14 07:53] VITALS: PULSE 71
[2022-06-14] MEDS: BACITRACIN OINTMENT BULK TUBE 1 APPLIC TOPICAL ×2 (07:53→20:01)
[2022-06-14] MEDS: METOPROLOL SUCCINATE (XL) 50 MG TAB PO (07:53)
[2022-06-14] MEDS: DIGOXIN 125 MCG TABLET 62.5 MCG PO (07:53)
[2022-06-14] MEDS: lisinopriL 2.5 MG TABLET PO (07:53)
[2022-06-14] MEDS: ASPIRIN 81 MG TAB.CHEW PO (07:53)
[2022-06-14] MEDS: CYANOCOBALAMIN (VITAMIN B-12) 500 MCG TABLET PO (07:53)
[2022-06-14] MEDS: allopurinoL 100 MG TABLET PO (07:53)
[2022-06-14] MEDS: METFORMIN ER 500 MG 1000 MG PO ×2 (07:53→16:05)
[2022-06-14] MEDS: SPIRONOLACTONE 25 MG TABLET 12.5 MG PO (07:53)
[2022-06-14] MEDS: FUROSEMIDE 20 MG TABLET 80 MG PO (07:53)
[2022-06-14] MEDS: LOPERAMIDE HCL 2 MG CAPSULE 4 MG PO ×2 (07:53→16:05)
[2022-06-14] MEDS: MULTIVITAMIN/MINERALS 1 TABLET 1 TAB PO (07:53)
[2022-06-14 10:58] VITALS: BP 104/63; PULSE 70; RESP 18; TEMP 36.7; O2SAT 97
[2022-06-14 14:34] VITALS: BMI 22.0
[2022-06-14] MEDS: WARFARIN 5 MG TABLET PO (16:05)
[2022-06-14 17:20] VITALS: TEMP 37.1; TEMP 37.4; O2SAT 96; O2SAT 97
[2022-06-14] MEDS: PRAMIPEXOLE 0.25 MG TABLET PO (20:01)
[2022-06-14] MEDS: ATORVASTATIN CALCIUM 20 MG TABLET PO (20:01)
[2022-06-14] MEDS: MELATONIN 5 MG TABLET 10 MG PO (20:01)
[2022-06-14 23:00] VITALS: TEMP 36.7; O2SAT 99
[2022-06-15 08:11] VITALS: PULSE 80
[2022-06-15] MEDS: DIGOXIN 125 MCG TABLET 62.5 MCG PO (08:11)
[2022-06-15] MEDS: allopurinoL 100 MG TABLET PO (08:11)
[2022-06-15] MEDS: BACITRACIN OINTMENT BULK TUBE 1 APPLIC TOPICAL ×2 (08:11→19:56)
[2022-06-15] MEDS: CYANOCOBALAMIN (VITAMIN B-12) 500 MCG TABLET PO (08:11)
[2022-06-15] MEDS: ASPIRIN 81 MG TAB.CHEW PO (08:11)
[2022-06-15] MEDS: SPIRONOLACTONE 25 MG TABLET 12.5 MG PO (08:12)
[2022-06-15] MEDS: LOPERAMIDE HCL 2 MG CAPSULE 4 MG PO ×2 (08:12→16:47)
[2022-06-15] MEDS: METOPROLOL SUCCINATE (XL) 50 MG TAB PO (08:12)
[2022-06-15] MEDS: lisinopriL 2.5 MG TABLET PO (08:12)
[2022-06-15] MEDS: METFORMIN ER 500 MG 1000 MG PO ×2 (08:12→16:47)
[2022-06-15] MEDS: FUROSEMIDE 20 MG TABLET 80 MG PO (08:12)
[2022-06-15] MEDS: MULTIVITAMIN/MINERALS 1 TABLET 1 TAB PO (08:12)
[2022-06-15 10:27] VITALS: TEMP 36.4; O2SAT 97
[2022-06-15 14:09] VITALS: BMI 22.0
[2022-06-15] MEDS: WARFARIN 5 MG TABLET PO (16:47)
[2022-06-15] MEDS: MELATONIN 5 MG TABLET 10 MG PO (19:56)
[2022-06-15] MEDS: ATORVASTATIN CALCIUM 20 MG TABLET PO (19:56)
[2022-06-15] MEDS: PRAMIPEXOLE 0.25 MG TABLET PO (19:56)
[2022-06-15 21:37] VITALS: TEMP 36.9; O2SAT 98
[2022-06-16 00:14] VITALS: TEMP 36.4; O2SAT 97
[2022-06-16] MEDS: LOPERAMIDE HCL 2 MG CAPSULE 4 MG PO ×2 (07:10→16:58)
[2022-06-16] MEDS: CYANOCOBALAMIN (VITAMIN B-12) 500 MCG TABLET PO (07:10)
[2022-06-16] MEDS: FUROSEMIDE 20 MG TABLET 80 MG PO (07:10)
[2022-06-16] MEDS: ASPIRIN 81 MG TAB.CHEW PO (07:10)
[2022-06-16] MEDS: METOPROLOL SUCCINATE (XL) 50 MG TAB PO (07:10)
[2022-06-16] MEDS: lisinopriL 2.5 MG TABLET PO (07:10)
[2022-06-16] MEDS: BACITRACIN OINTMENT BULK TUBE 1 APPLIC TOPICAL ×2 (07:10→19:56)
[2022-06-16] MEDS: MULTIVITAMIN/MINERALS 1 TABLET 1 TAB PO (07:10)
[2022-06-16] MEDS: allopurinoL 100 MG TABLET PO (07:10)
[2022-06-16] MEDS: METFORMIN ER 500 MG 1000 MG PO ×2 (07:10→16:58)
[2022-06-16] MEDS: SPIRONOLACTONE 25 MG TABLET 12.5 MG PO (07:11)
[2022-06-16 07:18] VITALS: PULSE 75
[2022-06-16] MEDS: DIGOXIN 125 MCG TABLET 62.5 MCG PO (07:18)
[2022-06-16 10:48] VITALS: TEMP 36.3; O2SAT 98; BMI 22.1
[2022-06-16] MEDS: WARFARIN 5 MG TABLET PO (16:58)
[2022-06-16 18:37] VITALS: TEMP 36.6; O2SAT 98
[2022-06-16] MEDS: NYSTATIN POWDER 1 APPLIC TOPICAL (19:56)
[2022-06-16] MEDS: MELATONIN 5 MG TABLET 10 MG PO (19:57)
[2022-06-16] MEDS: PRAMIPEXOLE 0.25 MG TABLET PO (19:57)
[2022-06-16] MEDS: ATORVASTATIN CALCIUM 20 MG TABLET PO (19:57)
[2022-06-16 23:00] VITALS: TEMP 36.6; O2SAT 98
[2022-06-17] MEDS: FUROSEMIDE 20 MG TABLET 80 MG PO (07:33)
[2022-06-17] MEDS: allopurinoL 100 MG TABLET PO (07:33)
[2022-06-17] MEDS: LOPERAMIDE HCL 2 MG CAPSULE 4 MG PO ×2 (07:33→17:00)
[2022-06-17] MEDS: lisinopriL 2.5 MG TABLET PO (07:33)
[2022-06-17] MEDS: BACITRACIN OINTMENT BULK TUBE 1 APPLIC TOPICAL ×2 (07:33→19:50)
[2022-06-17] MEDS: METFORMIN ER 500 MG 1000 MG PO ×2 (07:33→17:00)
[2022-06-17] MEDS: ASPIRIN 81 MG TAB.CHEW PO (07:33)
[2022-06-17] MEDS: CYANOCOBALAMIN (VITAMIN B-12) 500 MCG TABLET PO (07:33)
[2022-06-17] MEDS: SPIRONOLACTONE 25 MG TABLET 12.5 MG PO (07:34)
[2022-06-17] MEDS: MULTIVITAMIN/MINERALS 1 TABLET 1 TAB PO (07:34)
[2022-06-17] MEDS: METOPROLOL SUCCINATE (XL) 50 MG TAB PO (07:34)
[2022-06-17 08:01] VITALS: PULSE 89
[2022-06-17] MEDS: DIGOXIN 125 MCG TABLET 62.5 MCG PO (08:01)
[2022-06-17 09:56] VITALS: TEMP 36.7; O2SAT 95
[2022-06-17] MEDS: WARFARIN 5 MG TABLET PO (16:58)
[2022-06-17] MEDS: MELATONIN 5 MG TABLET 10 MG PO (19:50)
[2022-06-17] MEDS: ATORVASTATIN CALCIUM 20 MG TABLET PO (19:50)
[2022-06-17] MEDS: NYSTATIN POWDER 1 APPLIC TOPICAL (19:50)
[2022-06-17] MEDS: PRAMIPEXOLE 0.25 MG TABLET PO (19:50)
[2022-06-17 21:28] VITALS: TEMP 36.8; O2SAT 98
[2022-06-17 23:00] VITALS: TEMP 36.3; O2SAT 97
[2022-06-18 08:39] VITALS: PULSE 73
[2022-06-18] MEDS: CYANOCOBALAMIN (VITAMIN B-12) 500 MCG TABLET PO (08:39)
[2022-06-18] MEDS: BACITRACIN OINTMENT BULK TUBE 1 APPLIC TOPICAL ×2 (08:39→20:53)
[2022-06-18] MEDS: allopurinoL 100 MG TABLET PO (08:39)
[2022-06-18] MEDS: DIGOXIN 125 MCG TABLET 62.5 MCG PO (08:39)
[2022-06-18] MEDS: ASPIRIN 81 MG TAB.CHEW PO (08:39)
[2022-06-18] MEDS: FUROSEMIDE 20 MG TABLET 80 MG PO (08:40)
[2022-06-18] MEDS: lisinopriL 2.5 MG TABLET PO (08:40)
[2022-06-18] MEDS: LOPERAMIDE HCL 2 MG CAPSULE 4 MG PO ×2 (08:40→16:09)
[2022-06-18] MEDS: METOPROLOL SUCCINATE (XL) 50 MG TAB PO (08:40)
[2022-06-18] MEDS: METFORMIN ER 500 MG 1000 MG PO ×2 (08:40→16:09)
[2022-06-18] MEDS: MULTIVITAMIN/MINERALS 1 TABLET 1 TAB PO (08:41)
[2022-06-18] MEDS: SPIRONOLACTONE 25 MG TABLET 12.5 MG PO (08:41)
[2022-06-18 10:29] VITALS: TEMP 36.3; O2SAT 96
--- NOTE | 2022-06-18 10:58 | PC.NURSE ---
COVID TESTING: Residents son provided verbal consent for outbreak COVID testing. Resident is currently asymptomatic. Resident/family will be notified only if resident is positive.
[2022-06-18 11:26] LABS: SARS PCR* Negative SARS-CoV-2 (Negative)
[2022-06-18 13:49] VITALS: BMI 22.1
[2022-06-18] MEDS: WARFARIN 5 MG TABLET PO (16:09)
[2022-06-18] MEDS: MELATONIN 5 MG TABLET 10 MG PO (20:53)
[2022-06-18] MEDS: PRAMIPEXOLE 0.25 MG TABLET PO (20:53)
[2022-06-18] MEDS: ATORVASTATIN CALCIUM 20 MG TABLET PO (20:53)
[2022-06-18] MEDS: NYSTATIN POWDER 1 APPLIC TOPICAL (20:53)
[2022-06-18 21:29] VITALS: TEMP 37; O2SAT 99
[2022-06-18 23:00] VITALS: TEMP 36.6; O2SAT 98
[2022-06-19] MEDS: BACITRACIN OINTMENT BULK TUBE 1 APPLIC TOPICAL ×2 (07:05→19:58)
[2022-06-19] MEDS: NYSTATIN POWDER 1 APPLIC TOPICAL (07:05)
[2022-06-19] MEDS: allopurinoL 100 MG TABLET PO (08:19)
[2022-06-19 08:20] VITALS: PULSE 65
[2022-06-19] MEDS: LOPERAMIDE HCL 2 MG CAPSULE 4 MG PO ×2 (08:20→16:46)
[2022-06-19] MEDS: lisinopriL 2.5 MG TABLET PO (08:20)
[2022-06-19] MEDS: METFORMIN ER 500 MG 1000 MG PO ×2 (08:20→16:46)
[2022-06-19] MEDS: CYANOCOBALAMIN (VITAMIN B-12) 500 MCG TABLET PO (08:20)
[2022-06-19] MEDS: METOPROLOL SUCCINATE (XL) 50 MG TAB PO (08:20)
[2022-06-19] MEDS: FUROSEMIDE 20 MG TABLET 80 MG PO (08:20)
[2022-06-19] MEDS: MULTIVITAMIN/MINERALS 1 TABLET 1 TAB PO (08:20)
[2022-06-19] MEDS: ASPIRIN 81 MG TAB.CHEW PO (08:20)
[2022-06-19] MEDS: DIGOXIN 125 MCG TABLET 62.5 MCG PO (08:20)
[2022-06-19] MEDS: SPIRONOLACTONE 25 MG TABLET 12.5 MG PO (08:21)
[2022-06-19 11:16] VITALS: TEMP 36.6; O2SAT 97; BMI 22.1
--- NOTE | 2022-06-19 12:35 | PC.SPIRITC ---
provided written materials and note of encouragement for connection and support.
[2022-06-19 13:59] VITALS: BMI 22.1
[2022-06-19] MEDS: WARFARIN 5 MG TABLET PO (16:46)
[2022-06-19] MEDS: MELATONIN 5 MG TABLET 10 MG PO (19:58)
[2022-06-19] MEDS: ATORVASTATIN CALCIUM 20 MG TABLET PO (19:58)
[2022-06-19] MEDS: PRAMIPEXOLE 0.25 MG TABLET PO (19:58)
[2022-06-19 21:22] VITALS: TEMP 37.4; O2SAT 97
[2022-06-19 23:00] VITALS: TEMP 36.8; O2SAT 97
[2022-06-20] MEDS: BACITRACIN OINTMENT BULK TUBE 1 APPLIC TOPICAL ×2 (08:48→20:12)
[2022-06-20] MEDS: allopurinoL 100 MG TABLET PO (08:48)
[2022-06-20] MEDS: ASPIRIN 81 MG TAB.CHEW PO (08:48)
[2022-06-20 08:49] VITALS: PULSE 52
[2022-06-20] MEDS: CYANOCOBALAMIN (VITAMIN B-12) 500 MCG TABLET PO (08:49)
[2022-06-20] MEDS: lisinopriL 2.5 MG TABLET PO (08:50)
[2022-06-20] MEDS: METOPROLOL SUCCINATE (XL) 50 MG TAB PO (08:50)
[2022-06-20] MEDS: LOPERAMIDE HCL 2 MG CAPSULE 4 MG PO ×2 (08:50→15:42)
[2022-06-20] MEDS: MULTIVITAMIN/MINERALS 1 TABLET 1 TAB PO (08:50)
[2022-06-20] MEDS: SPIRONOLACTONE 25 MG TABLET 12.5 MG PO (08:50)
[2022-06-20] MEDS: FUROSEMIDE 20 MG TABLET 80 MG PO (08:50)
[2022-06-20] MEDS: METFORMIN ER 500 MG 1000 MG PO ×2 (08:50→15:42)
[2022-06-20 10:48] VITALS: TEMP 36.5; O2SAT 98
--- NOTE | 2022-06-20 11:20 | PC.NURSE ---
Catheter: Start of the shift blood in the catheter noted and resident complain of bladder pain. Catheter pulled down, deflated/inflated and reinserted catheter back.
--- NOTE | 2022-06-20 11:45 | PC.NURSE ---
BASHIR: This nurse was called to beside to assist with bashir catheter issues. Primary nurse reports that residents catheter was pulled down and not draining despite being repositioned. Resident reports a lot of bladder pain. Was bladder scanned for 475mL. This nurse removed bashir catheter, which was noted to only be in the residents urethra approx. 2-3inches, with a small amount of bloody tissue/mucous on the tip. Replaced with 16F bashir kit. Upon insertion, catheter immediately drained a large amount of dark brown/red urine. Resident reported immediate relief and requested to stay in bed so that the catheter would continue draining. Primary nurse updated.
[2022-06-20 14:21] VITALS: BMI 22.1
[2022-06-20] MEDS: WARFARIN 5 MG TABLET PO (15:42)
[2022-06-20] MEDS: NYSTATIN POWDER 1 APPLIC TOPICAL (20:12)
[2022-06-20] MEDS: PRAMIPEXOLE 0.25 MG TABLET PO (20:28)
[2022-06-20] MEDS: MELATONIN 5 MG TABLET 10 MG PO (20:28)
[2022-06-20] MEDS: ATORVASTATIN CALCIUM 20 MG TABLET PO (20:28)
[2022-06-20 21:43] VITALS: TEMP 37.2; O2SAT 93
[2022-06-20 23:00] VITALS: TEMP 37.1; O2SAT 94
[2022-06-21 08:06] VITALS: PULSE 72
[2022-06-21] MEDS: CYANOCOBALAMIN (VITAMIN B-12) 500 MCG TABLET PO (08:06)
[2022-06-21] MEDS: ASPIRIN 81 MG TAB.CHEW PO (08:06)
[2022-06-21] MEDS: BACITRACIN OINTMENT BULK TUBE 1 APPLIC TOPICAL ×2 (08:06→19:46)
[2022-06-21] MEDS: DIGOXIN 125 MCG TABLET 62.5 MCG PO (08:06)
[2022-06-21] MEDS: allopurinoL 100 MG TABLET PO (08:06)
[2022-06-21] MEDS: METFORMIN ER 500 MG 1000 MG PO ×2 (08:07→16:28)
[2022-06-21] MEDS: MULTIVITAMIN/MINERALS 1 TABLET 1 TAB PO (08:07)
[2022-06-21] MEDS: LOPERAMIDE HCL 2 MG CAPSULE 4 MG PO ×2 (08:07→16:28)
[2022-06-21] MEDS: lisinopriL 2.5 MG TABLET PO (08:07)
[2022-06-21] MEDS: METOPROLOL SUCCINATE (XL) 50 MG TAB PO (08:07)
[2022-06-21] MEDS: SPIRONOLACTONE 25 MG TABLET 12.5 MG PO (08:07)
[2022-06-21] MEDS: FUROSEMIDE 20 MG TABLET 80 MG PO (08:07)
[2022-06-21 10:05] VITALS: TEMP 36.4; O2SAT 96
[2022-06-21 13:41] VITALS: BMI 22.1
--- NOTE | 2022-06-21 14:45 | PC.NURSE ---
Week #3: Care plan problems 30-39 and temporary care plan reviewed. No changes made. Temporary care plan updated d/t increase in loose stools, negative for C-diff. Started on 4mg Imodium BID. Has a bashir catheter, emptied by staff q shift. Bag, leg bag changed q14 days. Is continent of bowels. Staff toilets per his request. Wears pull ups. Pads, bolivar cares, clothing adjustment managed by staff. Skin: Redness to periarea noted, PRN Nystatin applied. Continues with bacitracin to slit on penis. Skin is checked during cares and baths.
[2022-06-21] MEDS: WARFARIN 5 MG TABLET PO (16:28)
[2022-06-21 17:19] VITALS: BP 113/66; PULSE 78; RESP 18; TEMP 36.6; O2SAT 99
[2022-06-21] MEDS: ATORVASTATIN CALCIUM 20 MG TABLET PO (19:46)
[2022-06-21] MEDS: MELATONIN 5 MG TABLET 10 MG PO (19:47)
[2022-06-21] MEDS: PRAMIPEXOLE 0.25 MG TABLET PO (19:47)
[2022-06-21] MEDS: NYSTATIN POWDER 1 APPLIC TOPICAL (19:55)
[2022-06-21 23:00] VITALS: TEMP 36.3; O2SAT 98
[2022-06-22] MEDS: BACITRACIN OINTMENT BULK TUBE 1 APPLIC TOPICAL ×2 (07:13→19:28)
[2022-06-22] MEDS: NYSTATIN POWDER 1 APPLIC TOPICAL ×2 (07:13→19:28)
[2022-06-22] MEDS: ASPIRIN 81 MG TAB.CHEW PO (08:14)
[2022-06-22] MEDS: allopurinoL 100 MG TABLET PO (08:14)
[2022-06-22 08:15] VITALS: PULSE 69
[2022-06-22] MEDS: CYANOCOBALAMIN (VITAMIN B-12) 500 MCG TABLET PO (08:15)
[2022-06-22] MEDS: DIGOXIN 125 MCG TABLET 62.5 MCG PO (08:15)
[2022-06-22] MEDS: MULTIVITAMIN/MINERALS 1 TABLET 1 TAB PO (08:16)
[2022-06-22] MEDS: METFORMIN ER 500 MG 1000 MG PO ×2 (08:16→15:22)
[2022-06-22] MEDS: FUROSEMIDE 20 MG TABLET 80 MG PO (08:16)
[2022-06-22] MEDS: METOPROLOL SUCCINATE (XL) 50 MG TAB PO (08:16)
[2022-06-22] MEDS: LOPERAMIDE HCL 2 MG CAPSULE 4 MG PO ×2 (08:16→15:22)
[2022-06-22] MEDS: lisinopriL 2.5 MG TABLET PO (08:16)
[2022-06-22] MEDS: SPIRONOLACTONE 25 MG TABLET 12.5 MG PO (08:17)
[2022-06-22 10:20] VITALS: TEMP 36.8; O2SAT 96; BMI 21.9
[2022-06-22] MEDS: WARFARIN 5 MG TABLET PO (15:22)
[2022-06-22] MEDS: MELATONIN 5 MG TABLET 10 MG PO (19:28)
[2022-06-22] MEDS: PRAMIPEXOLE 0.25 MG TABLET PO (19:28)
[2022-06-22] MEDS: ATORVASTATIN CALCIUM 20 MG TABLET PO (19:28)
[2022-06-22 21:41] VITALS: TEMP 37.2; O2SAT 96
[2022-06-22 23:00] VITALS: TEMP 37.1; O2SAT 98
[2022-06-23 07:00] VITALS: TEMP 37.1; O2SAT 98; BMI 22.1
[2022-06-23] MEDS: lisinopriL 2.5 MG TABLET PO (07:59)
[2022-06-23] MEDS: FUROSEMIDE 20 MG TABLET 80 MG PO (07:59)
[2022-06-23] MEDS: LOPERAMIDE HCL 2 MG CAPSULE 4 MG PO ×2 (07:59→15:51)
[2022-06-23] MEDS: ASPIRIN 81 MG TAB.CHEW PO (07:59)
[2022-06-23] MEDS: SPIRONOLACTONE 25 MG TABLET 12.5 MG PO (07:59)
[2022-06-23] MEDS: BACITRACIN OINTMENT BULK TUBE 1 APPLIC TOPICAL ×2 (07:59→19:04)
[2022-06-23] MEDS: METOPROLOL SUCCINATE (XL) 50 MG TAB PO (07:59)
[2022-06-23] MEDS: METFORMIN ER 500 MG 1000 MG PO ×2 (07:59→15:51)
[2022-06-23] MEDS: CYANOCOBALAMIN (VITAMIN B-12) 500 MCG TABLET PO (07:59)
[2022-06-23] MEDS: allopurinoL 100 MG TABLET PO (07:59)
[2022-06-23] MEDS: MULTIVITAMIN/MINERALS 1 TABLET 1 TAB PO (07:59)
[2022-06-23 08:05] VITALS: PULSE 76
[2022-06-23] MEDS: DIGOXIN 125 MCG TABLET 62.5 MCG PO (08:05)
[2022-06-23 10:53] LABS: PCR FLU A Negative PCR FLU A (Negative); PCR FLU B Negative PCR FLU B (Negative)
[2022-06-23 10:58] LABS: SARS PCR* Negative SARS-CoV-2 (Negative)
--- NOTE | 2022-06-23 13:50 | PC.NURSE ---
COVID and Influenzae Test: Resident tested negative on 06/23/22
[2022-06-23] MEDS: WARFARIN 5 MG TABLET PO (15:51)
[2022-06-23] MEDS: ATORVASTATIN CALCIUM 20 MG TABLET PO (19:04)
[2022-06-23] MEDS: MELATONIN 5 MG TABLET 10 MG PO (19:04)
[2022-06-23] MEDS: PRAMIPEXOLE 0.25 MG TABLET PO (19:05)
[2022-06-23 20:00] LABS: Appearance Urine Turbid (Clear); Bilirubin Urine Negative (Negative); Blood Urine 3+ (Negative); Color Urine Red (Yellow); Glucose Urine Negative (Negative); Ketones Urine Negative (Negative); Leukocyte Esterase Urine 1+ (Negative); Nitrite Urine Negative (Negative); Protein Urine 2+ (Negative); Urobilinogen Urine 0.2 (0.2-1.0); pH Urine 5.5 (5.0-8.5)
[2022-06-23] MEDS: cephALEXin 500 MG CAPSULE PO (20:00)
[2022-06-23 20:11] LABS: RBC Urine 50-100 (0-2)
[2022-06-23 20:12] LABS: Bacteria Urine Many; Squamous Epithelial Cell Urine Moderate (None-Few)
[2022-06-23 21:36] VITALS: TEMP 38; O2SAT 95
--- NOTE | 2022-06-23 21:41 | PC.NURSE ---
Status: Resident temp 100.4 start of shift, up from day shift report. Resident remained in room for duration of shift r/t temperature. Resident cognition changed drastically mid shift, A&Ox1, resident spoke to son Dax on the phone and son spoke to technical publications writer concerned about resident cognition. Information Technology Director agreed there was significant change. Contacted on-call provider to obtain order for urine culture. On-call provider okay'd urine culture, to start Keflex 500mg TID x7days start STAT and change catheter. Keflex 500mg pulled from e-kit and administered. Catheter changed 16F, output dark red with small clotting. Tolerated well. Family updated.
[2022-06-23 23:00] VITALS: TEMP 36.7; O2SAT 98
--- NOTE | 2022-06-24 06:38 | PC.NURSE ---
Status---Res. slept well. Temp was 98.1. O2 sat 98% on room air. Porter drained 350cc dark enrico urine. No confusion noted.
[2022-06-24] MEDS: BACITRACIN OINTMENT BULK TUBE 1 APPLIC TOPICAL ×2 (07:00→20:08)
[2022-06-24] MEDS: ASPIRIN 81 MG TAB.CHEW PO (08:37)
[2022-06-24] MEDS: allopurinoL 100 MG TABLET PO (08:37)
[2022-06-24 08:38] VITALS: PULSE 89
[2022-06-24] MEDS: cephALEXin 500 MG CAPSULE PO ×3 (08:38→20:07)
[2022-06-24] MEDS: METOPROLOL SUCCINATE (XL) 50 MG TAB PO (08:38)
[2022-06-24] MEDS: lisinopriL 2.5 MG TABLET PO (08:38)
[2022-06-24] MEDS: MULTIVITAMIN/MINERALS 1 TABLET 1 TAB PO (08:38)
[2022-06-24] MEDS: CYANOCOBALAMIN (VITAMIN B-12) 500 MCG TABLET PO (08:38)
[2022-06-24] MEDS: DIGOXIN 125 MCG TABLET 62.5 MCG PO (08:38)
[2022-06-24] MEDS: LOPERAMIDE HCL 2 MG CAPSULE 4 MG PO ×2 (08:38→16:35)
[2022-06-24] MEDS: METFORMIN ER 500 MG 1000 MG PO ×2 (08:38→16:35)
[2022-06-24] MEDS: SPIRONOLACTONE 25 MG TABLET 12.5 MG PO (08:38)
[2022-06-24] MEDS: FUROSEMIDE 20 MG TABLET 80 MG PO (08:38)
[2022-06-24 11:04] VITALS: TEMP 36.9; O2SAT 97; BMI 22.1
[2022-06-24] MEDS: WARFARIN 5 MG TABLET PO (16:35)
[2022-06-24 17:09] VITALS: TEMP 37.6; O2SAT 96
[2022-06-24] MEDS: ATORVASTATIN CALCIUM 20 MG TABLET PO (20:07)
[2022-06-24] MEDS: PRAMIPEXOLE 0.25 MG TABLET PO (20:08)
[2022-06-24] MEDS: MELATONIN 5 MG TABLET 10 MG PO (20:08)
[2022-06-24 23:00] VITALS: TEMP 36.1; O2SAT 95
[2022-06-25] MEDS: BACITRACIN OINTMENT BULK TUBE 1 APPLIC TOPICAL ×2 (06:59→19:41)
[2022-06-25] MEDS: allopurinoL 100 MG TABLET PO (06:59)
[2022-06-25] MEDS: ASPIRIN 81 MG TAB.CHEW PO (06:59)
[2022-06-25] MEDS: CYANOCOBALAMIN (VITAMIN B-12) 500 MCG TABLET PO (07:00)
[2022-06-25] MEDS: cephALEXin 500 MG CAPSULE PO ×3 (07:00→19:41)
[2022-06-25] MEDS: FUROSEMIDE 20 MG TABLET 80 MG PO (07:00)
[2022-06-25] MEDS: METOPROLOL SUCCINATE (XL) 50 MG TAB PO (07:01)
[2022-06-25] MEDS: LOPERAMIDE HCL 2 MG CAPSULE 4 MG PO ×2 (07:01→16:11)
[2022-06-25] MEDS: lisinopriL 2.5 MG TABLET PO (07:01)
[2022-06-25] MEDS: METFORMIN ER 500 MG 1000 MG PO ×2 (07:01→16:11)
[2022-06-25] MEDS: MULTIVITAMIN/MINERALS 1 TABLET 1 TAB PO (07:02)
[2022-06-25] MEDS: SPIRONOLACTONE 25 MG TABLET 12.5 MG PO (07:02)
[2022-06-25 07:51] VITALS: PULSE 74
[2022-06-25] MEDS: DIGOXIN 125 MCG TABLET 62.5 MCG PO (07:51)
[2022-06-25 12:48] VITALS: TEMP 36.6; O2SAT 94; BMI 22.0
[2022-06-25 14:35] LABS: SARS PCR* Negative SARS-CoV-2 (Negative)
[2022-06-25 15:00] VITALS: TEMP 36.6; O2SAT 99
[2022-06-25] MEDS: WARFARIN 5 MG TABLET PO (16:11)
--- NOTE | 2022-06-25 16:38 | PC.NURSE ---
MDS: Reviewed ADL documentation in the 7 day look-back for the MDS with an ASHLEY of 06/14/22. Resident was documented to have received limited assistance with toileting. Resident has catheter that staff empty q shift and as needed. Spoke with staff, this was documented in error. Coded as extensive on MDS.
[2022-06-25] MEDS: MELATONIN 5 MG TABLET 10 MG PO (19:41)
[2022-06-25] MEDS: ATORVASTATIN CALCIUM 20 MG TABLET PO (19:41)
[2022-06-25] MEDS: PRAMIPEXOLE 0.25 MG TABLET PO (19:41)
[2022-06-25 23:00] VITALS: TEMP 37.1; O2SAT 98
[2022-06-26 07:00] VITALS: TEMP 37; O2SAT 100; BMI 22.1
[2022-06-26] MEDS: allopurinoL 100 MG TABLET PO (07:07)
[2022-06-26] MEDS: CYANOCOBALAMIN (VITAMIN B-12) 500 MCG TABLET PO (07:07)
[2022-06-26] MEDS: ASPIRIN 81 MG TAB.CHEW PO (07:07)
[2022-06-26] MEDS: BACITRACIN OINTMENT BULK TUBE 1 APPLIC TOPICAL ×2 (07:07→19:36)
[2022-06-26] MEDS: METFORMIN ER 500 MG 1000 MG PO ×2 (07:08→16:51)
[2022-06-26] MEDS: LOPERAMIDE HCL 2 MG CAPSULE 4 MG PO ×2 (07:08→16:51)
[2022-06-26] MEDS: lisinopriL 2.5 MG TABLET PO (07:08)
[2022-06-26] MEDS: FUROSEMIDE 20 MG TABLET 80 MG PO (07:08)
[2022-06-26] MEDS: cephALEXin 500 MG CAPSULE PO ×3 (07:08→19:36)
[2022-06-26] MEDS: METOPROLOL SUCCINATE (XL) 50 MG TAB PO (07:09)
[2022-06-26] MEDS: MULTIVITAMIN/MINERALS 1 TABLET 1 TAB PO (07:09)
[2022-06-26] MEDS: SPIRONOLACTONE 25 MG TABLET 12.5 MG PO (07:09)
[2022-06-26 07:23] VITALS: PULSE 76
[2022-06-26] MEDS: DIGOXIN 125 MCG TABLET 62.5 MCG PO (07:23)
[2022-06-26 11:41] LABS: INR 2.84 (0.91-1.10); Prothrombin Time 30.2 Seconds
--- NOTE | 2022-06-26 13:19 | PC.NURSE ---
INR: Result reviewed by [facility] Coumadin NurseZahraa. Order:Coumadin 4mg Tu, 5mg ,. INR 06/29/22.
[2022-06-26 17:28] VITALS: TEMP 36.7; O2SAT 97
[2022-06-26] MEDS: WARFARIN 2 MG TABLET 4 MG PO (19:35)
[2022-06-26] MEDS: PRAMIPEXOLE 0.25 MG TABLET PO (19:36)
[2022-06-26] MEDS: MELATONIN 5 MG TABLET 10 MG PO (19:36)
[2022-06-26] MEDS: ATORVASTATIN CALCIUM 20 MG TABLET PO (19:36)
--- NOTE | 2022-06-26 21:14 | PC.NURSE ---
Status: Scant amount of red blood noted in pad, originated from catheter site. Resident denies pain.
[2022-06-26 23:00] VITALS: TEMP 36.4; O2SAT 96
[2022-06-27 08:33] VITALS: PULSE 69
[2022-06-27] MEDS: DIGOXIN 125 MCG TABLET 62.5 MCG PO (08:33)
[2022-06-27] MEDS: CYANOCOBALAMIN (VITAMIN B-12) 500 MCG TABLET PO (08:33)
[2022-06-27] MEDS: lisinopriL 2.5 MG TABLET PO (08:33)
[2022-06-27] MEDS: BACITRACIN OINTMENT BULK TUBE 1 APPLIC TOPICAL ×2 (08:33→20:19)
[2022-06-27] MEDS: cephALEXin 500 MG CAPSULE PO ×3 (08:33→20:19)
[2022-06-27] MEDS: MULTIVITAMIN/MINERALS 1 TABLET 1 TAB PO (08:33)
[2022-06-27] MEDS: allopurinoL 100 MG TABLET PO (08:33)
[2022-06-27] MEDS: LOPERAMIDE HCL 2 MG CAPSULE 4 MG PO ×2 (08:33→16:23)
[2022-06-27] MEDS: ASPIRIN 81 MG TAB.CHEW PO (08:33)
[2022-06-27] MEDS: FUROSEMIDE 20 MG TABLET 80 MG PO (08:33)
[2022-06-27] MEDS: METOPROLOL SUCCINATE (XL) 50 MG TAB PO (08:33)
[2022-06-27] MEDS: METFORMIN ER 500 MG 1000 MG PO ×2 (08:33→16:23)
[2022-06-27] MEDS: SPIRONOLACTONE 25 MG TABLET 12.5 MG PO (08:34)
[2022-06-27 10:55] VITALS: TEMP 36.5; O2SAT 98
[2022-06-27] MEDS: WARFARIN 5 MG TABLET PO (16:23)
[2022-06-27] MEDS: NYSTATIN POWDER 1 APPLIC TOPICAL (20:19)
[2022-06-27] MEDS: ATORVASTATIN CALCIUM 20 MG TABLET PO (20:19)
[2022-06-27] MEDS: PRAMIPEXOLE 0.25 MG TABLET PO (20:19)
[2022-06-27] MEDS: MELATONIN 5 MG TABLET 10 MG PO (20:19)
[2022-06-27 21:10] VITALS: TEMP 36.5; O2SAT 99
[2022-06-27 23:00] VITALS: TEMP 36.6; O2SAT 98
--- NOTE | 2022-06-28 04:09 | PC.NURSE ---
Week #4---care plan problems #40+ reviewed. No changes made. Temporary care plan updated re: has a UTI which is being treated with Keflex x 7 days. Uses call light for needs. No changes in hearing, vision, or orientation. Did have some confusion before UTI diagnosed. Has since resolved. No behavior problems at [facility]. Sleeps well. Is on no psychotropic meds.
[2022-06-28] MEDS: BACITRACIN OINTMENT BULK TUBE 1 APPLIC TOPICAL ×2 (07:09→19:17)
[2022-06-28 08:27] VITALS: PULSE 67
[2022-06-28] MEDS: cephALEXin 500 MG CAPSULE PO ×3 (08:27→19:17)
[2022-06-28] MEDS: allopurinoL 100 MG TABLET PO (08:27)
[2022-06-28] MEDS: ASPIRIN 81 MG TAB.CHEW PO (08:27)
[2022-06-28] MEDS: DIGOXIN 125 MCG TABLET 62.5 MCG PO (08:27)
[2022-06-28] MEDS: lisinopriL 2.5 MG TABLET PO (08:27)
[2022-06-28] MEDS: LOPERAMIDE HCL 2 MG CAPSULE 4 MG PO ×2 (08:27→16:35)
[2022-06-28] MEDS: CYANOCOBALAMIN (VITAMIN B-12) 500 MCG TABLET PO (08:27)
[2022-06-28] MEDS: FUROSEMIDE 20 MG TABLET 80 MG PO (08:27)
[2022-06-28] MEDS: SPIRONOLACTONE 25 MG TABLET 12.5 MG PO (08:28)
[2022-06-28] MEDS: MULTIVITAMIN/MINERALS 1 TABLET 1 TAB PO (08:28)
[2022-06-28] MEDS: METOPROLOL SUCCINATE (XL) 50 MG TAB PO (08:28)
[2022-06-28] MEDS: METFORMIN ER 500 MG 1000 MG PO ×2 (08:28→16:35)
[2022-06-28 10:09] VITALS: TEMP 36.3; O2SAT 98; BMI 22.0
--- NOTE | 2022-06-28 10:10 | PC.SPIRITC ---
Ironer Hand provided visit for support and connection.
[2022-06-28 10:13] VITALS: PULSE 66; RESP 18; TEMP 36.3; O2SAT 98
--- NOTE | 2022-06-28 13:23 | PC.NURSE ---
Order: Tylenol 650mg PRN & Lasix 40mg daily PRN discontinued by Oliver DOUGHERTY.
[2022-06-28] MEDS: WARFARIN 5 MG TABLET PO (16:35)
[2022-06-28] MEDS: MELATONIN 5 MG TABLET 10 MG PO (19:17)
[2022-06-28] MEDS: ATORVASTATIN CALCIUM 20 MG TABLET PO (19:17)
[2022-06-28] MEDS: PRAMIPEXOLE 0.25 MG TABLET PO (19:17)
[2022-06-28 21:47] VITALS: TEMP 36.3; O2SAT 99
[2022-06-28 23:00] VITALS: TEMP 36.6; O2SAT 98
[2022-06-29 07:00] VITALS: BMI 22.0
[2022-06-29] MEDS: allopurinoL 100 MG TABLET PO (07:37)
[2022-06-29] MEDS: FUROSEMIDE 20 MG TABLET 80 MG PO (07:38)
[2022-06-29] MEDS: lisinopriL 2.5 MG TABLET PO (07:38)
[2022-06-29] MEDS: CYANOCOBALAMIN (VITAMIN B-12) 500 MCG TABLET PO (07:38)
[2022-06-29] MEDS: cephALEXin 500 MG CAPSULE PO ×3 (07:38→19:20)
[2022-06-29] MEDS: SPIRONOLACTONE 25 MG TABLET 12.5 MG PO (07:38)
[2022-06-29] MEDS: METOPROLOL SUCCINATE (XL) 50 MG TAB PO (07:38)
[2022-06-29] MEDS: LOPERAMIDE HCL 2 MG CAPSULE 4 MG PO ×2 (07:38→16:31)
[2022-06-29] MEDS: BACITRACIN OINTMENT BULK TUBE 1 APPLIC TOPICAL ×2 (07:38→19:20)
[2022-06-29] MEDS: ASPIRIN 81 MG TAB.CHEW PO (07:38)
[2022-06-29] MEDS: MULTIVITAMIN/MINERALS 1 TABLET 1 TAB PO (07:38)
[2022-06-29] MEDS: METFORMIN ER 500 MG 1000 MG PO ×2 (07:38→16:31)
[2022-06-29 08:09] VITALS: PULSE 71
[2022-06-29] MEDS: DIGOXIN 125 MCG TABLET 62.5 MCG PO (08:09)
[2022-06-29 09:38] LABS: INR 3.29 (0.91-1.10); Prothrombin Time 33.7 Seconds
--- NOTE | 2022-06-29 10:35 | PC.NURSE ---
INR: Result this morning is 3.29. Result reviewed by [facility] Coumadin nurseMelody. New order:Coumadin 4mg today (Saturday), 5mg Sat and Sun. INR to be rechecked on .
[2022-06-29] MEDS: WARFARIN 2 MG TABLET 4 MG PO (19:20)
[2022-06-29] MEDS: ATORVASTATIN CALCIUM 20 MG TABLET PO (19:20)
[2022-06-29] MEDS: PRAMIPEXOLE 0.25 MG TABLET PO (19:21)
[2022-06-29] MEDS: MELATONIN 5 MG TABLET 10 MG PO (19:21)
[2022-06-29 20:53] VITALS: TEMP 37.2; O2SAT 100
[2022-06-29 23:00] VITALS: TEMP 36.5; O2SAT 99
[2022-06-30 07:00] VITALS: TEMP 36; O2SAT 97
[2022-06-30] MEDS: ASPIRIN 81 MG TAB.CHEW PO (07:20)
[2022-06-30] MEDS: BACITRACIN OINTMENT BULK TUBE 1 APPLIC TOPICAL ×2 (07:20→19:17)
[2022-06-30] MEDS: allopurinoL 100 MG TABLET PO (07:20)
[2022-06-30 07:21] VITALS: PULSE 72
[2022-06-30] MEDS: FUROSEMIDE 20 MG TABLET 80 MG PO (07:21)
[2022-06-30] MEDS: METFORMIN ER 500 MG 1000 MG PO ×2 (07:21→16:21)
[2022-06-30] MEDS: MULTIVITAMIN/MINERALS 1 TABLET 1 TAB PO (07:21)
[2022-06-30] MEDS: LOPERAMIDE HCL 2 MG CAPSULE 4 MG PO ×2 (07:21→16:21)
[2022-06-30] MEDS: cephALEXin 500 MG CAPSULE PO (07:21)
[2022-06-30] MEDS: lisinopriL 2.5 MG TABLET PO (07:21)
[2022-06-30] MEDS: DIGOXIN 125 MCG TABLET 62.5 MCG PO (07:21)
[2022-06-30] MEDS: METOPROLOL SUCCINATE (XL) 50 MG TAB PO (07:21)
[2022-06-30] MEDS: CYANOCOBALAMIN (VITAMIN B-12) 500 MCG TABLET PO (07:21)
[2022-06-30] MEDS: SPIRONOLACTONE 25 MG TABLET 12.5 MG PO (07:22)
[2022-06-30] MEDS: WARFARIN 5 MG TABLET PO (16:21)
[2022-06-30 16:57] VITALS: TEMP 36.6; O2SAT 98
[2022-06-30] MEDS: ATORVASTATIN CALCIUM 20 MG TABLET PO (19:16)
[2022-06-30] MEDS: MELATONIN 5 MG TABLET 10 MG PO (19:17)
[2022-06-30] MEDS: PRAMIPEXOLE 0.25 MG TABLET PO (19:17)
[2022-06-30 21:42] VITALS: BMI 22.1
[2022-07-01 00:21] VITALS: TEMP 36.4; O2SAT 98
[2022-07-01 07:00] VITALS: TEMP 36.7; O2SAT 99
[2022-07-01 07:44] VITALS: PULSE 78
[2022-07-01] MEDS: lisinopriL 2.5 MG TABLET PO (07:44)
[2022-07-01] MEDS: CYANOCOBALAMIN (VITAMIN B-12) 500 MCG TABLET PO (07:44)
[2022-07-01] MEDS: SPIRONOLACTONE 25 MG TABLET 12.5 MG PO (07:44)
[2022-07-01] MEDS: METFORMIN ER 500 MG 1000 MG PO ×2 (07:44→16:38)
[2022-07-01] MEDS: ASPIRIN 81 MG TAB.CHEW PO (07:44)
[2022-07-01] MEDS: FUROSEMIDE 20 MG TABLET 80 MG PO (07:44)
[2022-07-01] MEDS: BACITRACIN OINTMENT BULK TUBE 1 APPLIC TOPICAL ×2 (07:44→19:28)
[2022-07-01] MEDS: METOPROLOL SUCCINATE (XL) 50 MG TAB PO (07:44)
[2022-07-01] MEDS: LOPERAMIDE HCL 2 MG CAPSULE 4 MG PO ×2 (07:44→16:38)
[2022-07-01] MEDS: MULTIVITAMIN/MINERALS 1 TABLET 1 TAB PO (07:44)
[2022-07-01] MEDS: DIGOXIN 125 MCG TABLET 62.5 MCG PO (07:44)
[2022-07-01] MEDS: allopurinoL 100 MG TABLET PO (07:44)
[2022-07-01] MEDS: WARFARIN 5 MG TABLET PO (16:38)
[2022-07-01] MEDS: MELATONIN 5 MG TABLET 10 MG PO (19:28)
[2022-07-01] MEDS: ATORVASTATIN CALCIUM 20 MG TABLET PO (19:28)
[2022-07-01] MEDS: PRAMIPEXOLE 0.25 MG TABLET PO (19:28)
[2022-07-01 21:24] VITALS: TEMP 36.2; O2SAT 97
[2022-07-01 23:00] VITALS: TEMP 36.3; O2SAT 99
[2022-07-02 07:00] VITALS: TEMP 36.1; O2SAT 98; BMI 22.0
[2022-07-02] MEDS: ASPIRIN 81 MG TAB.CHEW PO (07:17)
[2022-07-02] MEDS: BACITRACIN OINTMENT BULK TUBE 1 APPLIC TOPICAL ×2 (07:17→19:45)
[2022-07-02] MEDS: METFORMIN ER 500 MG 1000 MG PO ×2 (07:17→16:45)
[2022-07-02] MEDS: LOPERAMIDE HCL 2 MG CAPSULE 4 MG PO ×2 (07:17→16:45)
[2022-07-02] MEDS: lisinopriL 2.5 MG TABLET PO (07:17)
[2022-07-02] MEDS: FUROSEMIDE 20 MG TABLET 80 MG PO (07:17)
[2022-07-02] MEDS: CYANOCOBALAMIN (VITAMIN B-12) 500 MCG TABLET PO (07:17)
[2022-07-02] MEDS: allopurinoL 100 MG TABLET PO (07:17)
[2022-07-02] MEDS: SPIRONOLACTONE 25 MG TABLET 12.5 MG PO (07:18)
[2022-07-02] MEDS: METOPROLOL SUCCINATE (XL) 50 MG TAB PO (07:18)
[2022-07-02] MEDS: MULTIVITAMIN/MINERALS 1 TABLET 1 TAB PO (07:18)
[2022-07-02 08:51] VITALS: PULSE 66
[2022-07-02] MEDS: DIGOXIN 125 MCG TABLET 62.5 MCG PO (08:51)
[2022-07-02 09:37] LABS: Prothrombin Time 44.4 Seconds
[2022-07-02 09:38] LABS: INR 4.71 (0.91-1.10)
--- NOTE | 2022-07-02 09:41 | PC.NURSE ---
Pubic lump - Lump above R pubic area enlarging - left note for POWER ENGINEER to evaluate
--- NOTE | 2022-07-02 10:43 | PC.NURSE ---
INR - 4.71 - Spoke with Coumadin clinic nurse. Instructions to hold Coumadin 07/02 and 07/03. Recheck INR on 07/04.
--- NOTE | 2022-07-02 11:25 | PC.NURSE ---
COVID OUTBREAK TESTING: Resident provided verbal consent for outbreak COVID testing. Resident is currently asymptomatic. Resident/family will be notified only if resident is positive.
[2022-07-02 13:13] LABS: SARS PCR* Negative SARS-CoV-2 (Negative)
[2022-07-02 15:00] VITALS: TEMP 36.6; O2SAT 99
[2022-07-02] MEDS: ATORVASTATIN CALCIUM 20 MG TABLET PO (19:45)
[2022-07-02] MEDS: PRAMIPEXOLE 0.25 MG TABLET PO (19:45)
[2022-07-02] MEDS: MELATONIN 5 MG TABLET 10 MG PO (19:45)
[2022-07-02 23:00] VITALS: TEMP 36.4; O2SAT 98
[2022-07-03] VITALS (10 sets, daily range): BP systolic 94–132; BP diastolic 52–75; PULSE 56–76; RESP 16–20; TEMP 36.3–37.2; O2SAT 96–99; BMI 22.1
[2022-07-03] MEDS: ASPIRIN 81 MG TAB.CHEW PO (08:10)
[2022-07-03] MEDS: allopurinoL 100 MG TABLET PO (08:10)
[2022-07-03] MEDS: DIGOXIN 125 MCG TABLET 62.5 MCG PO (08:11)
[2022-07-03] MEDS: METOPROLOL SUCCINATE (XL) 50 MG TAB PO (08:11)
[2022-07-03] MEDS: BACITRACIN OINTMENT BULK TUBE 1 APPLIC TOPICAL ×2 (08:11→19:28)
[2022-07-03] MEDS: SPIRONOLACTONE 25 MG TABLET 12.5 MG PO (08:11)
[2022-07-03] MEDS: LOPERAMIDE HCL 2 MG CAPSULE 4 MG PO (08:11)
[2022-07-03] MEDS: MULTIVITAMIN/MINERALS 1 TABLET 1 TAB PO (08:11)
[2022-07-03] MEDS: CYANOCOBALAMIN (VITAMIN B-12) 500 MCG TABLET PO (08:11)
[2022-07-03] MEDS: FUROSEMIDE 20 MG TABLET 80 MG PO (08:11)
[2022-07-03] MEDS: METFORMIN ER 500 MG 1000 MG PO ×2 (08:11→16:51)
[2022-07-03] MEDS: lisinopriL 2.5 MG TABLET PO (08:11)
--- NOTE | 2022-07-03 10:50 | PC.NURSE ---
Order: Change Loperamide 4mg to daily by Oliver DOUGHERTY.
--- NOTE | 2022-07-03 13:27 | LTC.FALL ---
Addendum entered by Sharee Uriarte RN 07/03/22 14:37: Who found the resident and who responded: Bernice VILLATORO Original Note: [facility] Fall Note: o Fall Date: 07/03/22 o Fall Time: 1130 o What happened? SOLAR INSTALLATION SUPERVISOR answered the alarm and found resident sitting on the floor right in front of the recliner. o Who found the resident and who responded? o What was the resident doing? Putting his Bible in the night stand. o How the resident was found (knees, left side, arm under them), any hazards (cords, objects, nonskid slippers) brakes on? Proper equipment? Sitting on the floor in front of the recliner with his back on the foot of the recliner. o Did you assess for head trauma, spinal injuries, skeletal injuries, neurological changes and status, and head and neck pain? What did you find? Yes. Resident denies hitting his head, status per his usual self. o Did you assess ROM in shoulders, elbows, hips, knees, any other affected areas, unless there is suspected spinal injury. ROM to all extremities per within his range. o Did you Assess for pain or discomfort? Yes. Denies pain/discomfort. o What are the injuries and how are they being treated? Check VS Q1H X 4H then Q4H X 72H with neuro checks. o How was the resident transferred from the floor? 1 assist to recliner. o Did you call the MD or put a note in the REPTILE FARMER book? Note in REPTILE FARMER book o Enter vital signs. T-97.7 BP-116/75 P-56 RR-20 02 sat 99% o Did you notify family? Yes, will notify. o What was the root cause of the fall? Why did it happen? Balance unsteady, transfer self. o Create an IMMEDIATE INTERVENTION to ensure that this won't immediately happen again. (Put in temporary care plan too) Remind to call/wait for assistance. o Complete Safety report and huddle (now one form) o If resident is seen in ED or fractured something, note that you started a [facility] Report process. Instructions are at the East nurse's desk in a red binder labeled [facility] report.
--- NOTE | 2022-07-03 14:42 | PC.NURSE ---
Family Update: SonDax updated of fall.
--- NOTE | 2022-07-03 15:00 | PC.NURSE ---
Fall F/U 1500: Resident sitting up in recliner watching TV. VSS. Neuro WNL. Denies pain at this time. Steri strips intact on L arm, dried bloody drainage noted.
[2022-07-03] MEDS: MELATONIN 5 MG TABLET 10 MG PO (19:29)
[2022-07-03] MEDS: ATORVASTATIN CALCIUM 20 MG TABLET PO (19:29)
[2022-07-03] MEDS: PRAMIPEXOLE 0.25 MG TABLET PO (19:30)
--- NOTE | 2022-07-03 21:20 | PC.NURSE ---
Fall F/U 1899: Resident up in [facility], watching [employer]. Ate well for dinner. VSS and neuro at baseline. Denies pain. Bumped L arm, causing skin tear to bleed. Area cleansed with wound paper cleaner. 4x4 over steri strips for protection.
[2022-07-04] VITALS (9 sets, daily range): BP systolic 87–106; BP diastolic 54–64; PULSE 57–74; RESP 16–18; TEMP 36.3–36.8; O2SAT 96–99; BMI 22.1
--- NOTE | 2022-07-04 01:32 | PC.NURSE ---
Fall f/u for 2329---Awakens easily. Denies any pain. Hand grasps strong and equal. LIANA. Dressing intact to skin tears on left arm.
--- NOTE | 2022-07-04 03:58 | PC.NURSE ---
Fall f/u for 329---Awakens easily. Continues to deny any pain. VS and neuro checks stable. Up to the BR with assist. No difficulty transferring. Did have a small soft BM.
[2022-07-04 07:48] LABS: INR 2.35 (0.91-1.10); Prothrombin Time 26.1 Seconds
--- NOTE | 2022-07-04 07:55 | PC.NURSE ---
Fall F/U for 729: Resident in recliner. Denies pain. LIANA, Hand grasps strong and equal. VS okay.
[2022-07-04] MEDS: ASPIRIN 81 MG TAB.CHEW PO (08:15)
[2022-07-04] MEDS: BACITRACIN OINTMENT BULK TUBE 1 APPLIC TOPICAL ×2 (08:15→20:20)
[2022-07-04] MEDS: DIGOXIN 125 MCG TABLET 62.5 MCG PO (08:15)
[2022-07-04] MEDS: allopurinoL 100 MG TABLET PO (08:15)
[2022-07-04] MEDS: CYANOCOBALAMIN (VITAMIN B-12) 500 MCG TABLET PO (08:15)
[2022-07-04] MEDS: MULTIVITAMIN/MINERALS 1 TABLET 1 TAB PO (08:16)
[2022-07-04] MEDS: lisinopriL 2.5 MG TABLET PO (08:16)
[2022-07-04] MEDS: METFORMIN ER 500 MG 1000 MG PO ×2 (08:16→17:13)
[2022-07-04] MEDS: LOPERAMIDE HCL 2 MG CAPSULE 4 MG PO (08:16)
[2022-07-04] MEDS: FUROSEMIDE 20 MG TABLET 80 MG PO (08:16)
[2022-07-04] MEDS: METOPROLOL SUCCINATE (XL) 50 MG TAB PO (08:16)
[2022-07-04] MEDS: SPIRONOLACTONE 25 MG TABLET 12.5 MG PO (08:17)
--- NOTE | 2022-07-04 11:05 | PC.NURSE ---
INR: Result reviewed by Cristian Coumadin NurseRyann. Order: Coumadin 4mg We & Th, INR 07/06/22.
--- NOTE | 2022-07-04 13:32 | PC.NURSE ---
Fall F/U for 113: Resident in his recliner. Dressing (L) arm re done, falling off. Neuro checks stable. Continue to deny pain.
--- NOTE | 2022-07-04 15:30 | PC.NURSE ---
Fall f/u: Resident propelling in wheelchair leaving [facility] service. BP is low, resident denies feeling dizzy and denies any pain. Neuro check is okay. Dressing on left arm soiled so dressing was changed. Last Vital Signs Temp 98.3 F 07/04/22 15:30 Pulse 63 07/04/22 15:30 Resp 18 07/04/22 15:30 BP 87/54 L 07/04/22 15:30 Pulse Ox 97 07/04/22 15:30 O2 Del Method 07/04/22 15:30
--- NOTE | 2022-07-04 19:30 | PC.NURSE ---
Fall f/u: Resident resting in recliner. Denies any pain. Neuro check and VS within normal limits. Last Vital Signs Temp 97.9 F 07/04/22 19:30 Pulse 62 07/04/22 19:30 Resp 18 07/04/22 19:30 BP 95/54 L 07/04/22 19:30 Pulse Ox 96 07/04/22 19:30 O2 Del Method 07/04/22 19:30
[2022-07-04] MEDS: MELATONIN 5 MG TABLET 10 MG PO (20:20)
[2022-07-04] MEDS: WARFARIN 2 MG TABLET 4 MG PO (20:20)
[2022-07-04] MEDS: ATORVASTATIN CALCIUM 20 MG TABLET PO (20:20)
[2022-07-04] MEDS: PRAMIPEXOLE 0.25 MG TABLET PO (20:20)
[2022-07-05] VITALS (8 sets, daily range): BP systolic 100–114; BP diastolic 53–62; PULSE 67–81; RESP 16–18; TEMP 36.4–36.6; O2SAT 96–98; BMI 22.1
[2022-07-05] MEDS: BACITRACIN OINTMENT BULK TUBE 1 APPLIC TOPICAL ×2 (07:25→19:35)
--- NOTE | 2022-07-05 07:33 | PC.NURSE ---
Fall F/u: Resident sitting in recliner, watching TV. Denies pain/discomfort. LIANA. Hand grasps strong, equal.
--- NOTE | 2022-07-05 07:57 | PC.NURSE ---
Fall follow-up: Vital signs and neuro assessments findings are all WNL. No new concerns at this time.
[2022-07-05] MEDS: allopurinoL 100 MG TABLET PO (08:25)
[2022-07-05] MEDS: FUROSEMIDE 20 MG TABLET 80 MG PO (08:26)
[2022-07-05] MEDS: LOPERAMIDE HCL 2 MG CAPSULE 4 MG PO (08:26)
[2022-07-05] MEDS: ASPIRIN 81 MG TAB.CHEW PO (08:26)
[2022-07-05] MEDS: DIGOXIN 125 MCG TABLET 62.5 MCG PO (08:26)
[2022-07-05] MEDS: SPIRONOLACTONE 25 MG TABLET 12.5 MG PO (08:26)
[2022-07-05] MEDS: lisinopriL 2.5 MG TABLET PO (08:26)
[2022-07-05] MEDS: MULTIVITAMIN/MINERALS 1 TABLET 1 TAB PO (08:26)
[2022-07-05] MEDS: CYANOCOBALAMIN (VITAMIN B-12) 500 MCG TABLET PO (08:26)
[2022-07-05] MEDS: METFORMIN ER 500 MG 1000 MG PO ×2 (08:26→15:01)
[2022-07-05] MEDS: METOPROLOL SUCCINATE (XL) 50 MG TAB PO (08:26)
--- NOTE | 2022-07-05 12:19 | PC.NURSE ---
Fall F/U for 113: Resident in his room sitting in recliner. Continues to deny pain. Neuro's stable.
[2022-07-05] MEDS: WARFARIN 2 MG TABLET 4 MG PO (15:01)
[2022-07-05] MEDS: ATORVASTATIN CALCIUM 20 MG TABLET PO (19:35)
[2022-07-05] MEDS: PRAMIPEXOLE 0.25 MG TABLET PO (19:35)
[2022-07-05] MEDS: MELATONIN 5 MG TABLET 10 MG PO (19:35)
[2022-07-06] VITALS (7 sets, daily range): BP systolic 93–117; BP diastolic 50–66; PULSE 72–80; RESP 16–18; TEMP 36.3–36.9; O2SAT 93–100; BMI 22.1
--- NOTE | 2022-07-06 00:59 | PC.NURSE ---
Fall f/u for 2329---Awakens easily for VS and neuro checks. Hand grasps equal. LIANA. Up to the BR via w/c. Transferred without difficulty. Did have a small soft formed BM.
--- NOTE | 2022-07-06 03:35 | PC.NURSE ---
Fall f/u for 329---Awakens easily. VS and neuro checks remain stable. Denies any pain. Tegaderm intact to skin tear left arm.
[2022-07-06 08:17] LABS: INR 1.75 (0.91-1.10); Prothrombin Time 20.8 Seconds
[2022-07-06] MEDS: MULTIVITAMIN/MINERALS 1 TABLET 1 TAB PO (08:23)
[2022-07-06] MEDS: lisinopriL 2.5 MG TABLET PO (08:23)
[2022-07-06] MEDS: SPIRONOLACTONE 25 MG TABLET 12.5 MG PO (08:23)
[2022-07-06] MEDS: METOPROLOL SUCCINATE (XL) 50 MG TAB PO (08:23)
[2022-07-06] MEDS: FUROSEMIDE 20 MG TABLET 80 MG PO (08:23)
[2022-07-06] MEDS: BACITRACIN OINTMENT BULK TUBE 1 APPLIC TOPICAL ×2 (08:23→19:28)
[2022-07-06] MEDS: LOPERAMIDE HCL 2 MG CAPSULE 4 MG PO (08:23)
[2022-07-06] MEDS: CYANOCOBALAMIN (VITAMIN B-12) 500 MCG TABLET PO (08:23)
[2022-07-06] MEDS: ASPIRIN 81 MG TAB.CHEW PO (08:40)
[2022-07-06] MEDS: METFORMIN ER 500 MG 1000 MG PO ×2 (08:40→17:02)
[2022-07-06] MEDS: allopurinoL 100 MG TABLET PO (08:40)
[2022-07-06] MEDS: DIGOXIN 125 MCG TABLET 62.5 MCG PO (08:40)
--- NOTE | 2022-07-06 10:00 | PC.NURSE ---
Skin: Noted treatment to left arm x2 skin tears was causing pooling of blood between the steri strips and tegaderm. Removed old dressing. No s/s of infection. Active bleeding. Cleansed areas with wound cleanser and applied pressure. Bleeding stopped. Applied Mepitel dressing. Dressing to be changed q 7 days and PRN. Intervention set up.
--- NOTE | 2022-07-06 10:28 | PC.NURSE ---
INR: Result reviewed by [facility] Coumadin NurseZahraa. Order: Coumadin 5mg Fr & Jimenez, 4mg Sat & Mo. INR on 07/10/22.
[2022-07-06] MEDS: WARFARIN 5 MG TABLET PO (19:27)
[2022-07-06] MEDS: MELATONIN 5 MG TABLET 10 MG PO (19:28)
[2022-07-06] MEDS: ATORVASTATIN CALCIUM 20 MG TABLET PO (19:28)
[2022-07-06] MEDS: PRAMIPEXOLE 0.25 MG TABLET PO (19:28)
[2022-07-07 07:00] VITALS: BMI 21.9
[2022-07-07] MEDS: ASPIRIN 81 MG TAB.CHEW PO (08:14)
[2022-07-07] MEDS: allopurinoL 100 MG TABLET PO (08:14)
[2022-07-07 08:15] VITALS: PULSE 70
[2022-07-07] MEDS: METOPROLOL SUCCINATE (XL) 50 MG TAB PO (08:15)
[2022-07-07] MEDS: MULTIVITAMIN/MINERALS 1 TABLET 1 TAB PO (08:15)
[2022-07-07] MEDS: BACITRACIN OINTMENT BULK TUBE 1 APPLIC TOPICAL ×2 (08:15→19:24)
[2022-07-07] MEDS: DIGOXIN 125 MCG TABLET 62.5 MCG PO (08:15)
[2022-07-07] MEDS: CYANOCOBALAMIN (VITAMIN B-12) 500 MCG TABLET PO (08:15)
[2022-07-07] MEDS: LOPERAMIDE HCL 2 MG CAPSULE 4 MG PO (08:15)
[2022-07-07] MEDS: METFORMIN ER 500 MG 1000 MG PO ×2 (08:15→15:14)
[2022-07-07] MEDS: FUROSEMIDE 20 MG TABLET 80 MG PO (08:15)
[2022-07-07] MEDS: SPIRONOLACTONE 25 MG TABLET 12.5 MG PO (08:15)
[2022-07-07] MEDS: lisinopriL 2.5 MG TABLET PO (08:15)
[2022-07-07] MEDS: WARFARIN 2 MG TABLET 4 MG PO (15:14)
[2022-07-07] MEDS: ATORVASTATIN CALCIUM 20 MG TABLET PO (19:25)
[2022-07-07] MEDS: MELATONIN 5 MG TABLET 10 MG PO (19:25)
[2022-07-07] MEDS: PRAMIPEXOLE 0.25 MG TABLET PO (19:25)
[2022-07-07 21:10] VITALS: TEMP 36.9; O2SAT 94
[2022-07-08 07:00] VITALS: BMI 22.0
[2022-07-08] MEDS: ASPIRIN 81 MG TAB.CHEW PO (08:08)
[2022-07-08] MEDS: allopurinoL 100 MG TABLET PO (08:08)
[2022-07-08 08:09] VITALS: PULSE 68
[2022-07-08] MEDS: DIGOXIN 125 MCG TABLET 62.5 MCG PO (08:09)
[2022-07-08] MEDS: METFORMIN ER 500 MG 1000 MG PO ×2 (08:09→15:23)
[2022-07-08] MEDS: METOPROLOL SUCCINATE (XL) 50 MG TAB PO (08:09)
[2022-07-08] MEDS: BACITRACIN OINTMENT BULK TUBE 1 APPLIC TOPICAL ×2 (08:09→19:39)
[2022-07-08] MEDS: MULTIVITAMIN/MINERALS 1 TABLET 1 TAB PO (08:09)
[2022-07-08] MEDS: lisinopriL 2.5 MG TABLET PO (08:09)
[2022-07-08] MEDS: CYANOCOBALAMIN (VITAMIN B-12) 500 MCG TABLET PO (08:09)
[2022-07-08] MEDS: SPIRONOLACTONE 25 MG TABLET 12.5 MG PO (08:09)
[2022-07-08] MEDS: LOPERAMIDE HCL 2 MG CAPSULE 4 MG PO (08:09)
[2022-07-08] MEDS: FUROSEMIDE 20 MG TABLET 80 MG PO (08:09)
[2022-07-08] MEDS: WARFARIN 5 MG TABLET PO (15:23)
[2022-07-08] MEDS: ATORVASTATIN CALCIUM 20 MG TABLET PO (19:39)
[2022-07-08] MEDS: MELATONIN 5 MG TABLET 10 MG PO (19:39)
[2022-07-08] MEDS: PRAMIPEXOLE 0.25 MG TABLET PO (19:39)
[2022-07-08 20:42] VITALS: TEMP 36.9; O2SAT 94
[2022-07-09 07:45] VITALS: PULSE 64
[2022-07-09] MEDS: CYANOCOBALAMIN (VITAMIN B-12) 500 MCG TABLET PO (07:45)
[2022-07-09] MEDS: FUROSEMIDE 20 MG TABLET 80 MG PO (07:45)
[2022-07-09] MEDS: allopurinoL 100 MG TABLET PO (07:45)
[2022-07-09] MEDS: DIGOXIN 125 MCG TABLET 62.5 MCG PO (07:45)
[2022-07-09] MEDS: SPIRONOLACTONE 25 MG TABLET 12.5 MG PO (07:45)
[2022-07-09] MEDS: METFORMIN ER 500 MG 1000 MG PO ×2 (07:45→16:41)
[2022-07-09] MEDS: lisinopriL 2.5 MG TABLET PO (07:45)
[2022-07-09] MEDS: ASPIRIN 81 MG TAB.CHEW PO (07:45)
[2022-07-09] MEDS: BACITRACIN OINTMENT BULK TUBE 1 APPLIC TOPICAL ×2 (07:45→19:43)
[2022-07-09] MEDS: METOPROLOL SUCCINATE (XL) 50 MG TAB PO (07:45)
[2022-07-09] MEDS: MULTIVITAMIN/MINERALS 1 TABLET 1 TAB PO (07:45)
[2022-07-09] MEDS: LOPERAMIDE HCL 2 MG CAPSULE 4 MG PO (07:45)
[2022-07-09] MEDS: WARFARIN 2 MG TABLET 4 MG PO (16:40)
[2022-07-09 17:15] VITALS: TEMP 37.2; O2SAT 98
[2022-07-09] MEDS: MELATONIN 5 MG TABLET 10 MG PO (19:43)
[2022-07-09] MEDS: PRAMIPEXOLE 0.25 MG TABLET PO (19:43)
[2022-07-09] MEDS: ATORVASTATIN CALCIUM 20 MG TABLET PO (19:43)
[2022-07-10 07:00] VITALS: BMI 22.0
[2022-07-10 07:44] VITALS: PULSE 81
[2022-07-10] MEDS: LOPERAMIDE HCL 2 MG CAPSULE 4 MG PO (07:44)
[2022-07-10] MEDS: FUROSEMIDE 20 MG TABLET 80 MG PO (07:44)
[2022-07-10] MEDS: METOPROLOL SUCCINATE (XL) 50 MG TAB PO (07:44)
[2022-07-10] MEDS: SPIRONOLACTONE 25 MG TABLET 12.5 MG PO (07:44)
[2022-07-10] MEDS: allopurinoL 100 MG TABLET PO (07:44)
[2022-07-10] MEDS: CYANOCOBALAMIN (VITAMIN B-12) 500 MCG TABLET PO (07:44)
[2022-07-10] MEDS: DIGOXIN 125 MCG TABLET 62.5 MCG PO (07:44)
[2022-07-10] MEDS: BACITRACIN OINTMENT BULK TUBE 1 APPLIC TOPICAL ×2 (07:44→19:41)
[2022-07-10] MEDS: METFORMIN ER 500 MG 1000 MG PO ×2 (07:44→16:18)
[2022-07-10] MEDS: ASPIRIN 81 MG TAB.CHEW PO (07:44)
[2022-07-10] MEDS: lisinopriL 2.5 MG TABLET PO (07:44)
[2022-07-10] MEDS: MULTIVITAMIN/MINERALS 1 TABLET 1 TAB PO (07:44)
[2022-07-10 07:46] LABS: INR 2.91 (0.91-1.10); Prothrombin Time 30.7 Seconds
--- NOTE | 2022-07-10 10:03 | PC.NURSE ---
INR: Result reviewed by [facility] Coumadin NurseZahraa. Order: Coumadin 3mg Tu & We, 4mg Th. Check INR 07/13/22.
[2022-07-10 16:00] VITALS: TEMP 36.6; O2SAT 99
[2022-07-10] MEDS: WARFARIN 3 MG TABLET PO (19:39)
[2022-07-10] MEDS: ATORVASTATIN CALCIUM 20 MG TABLET PO (19:41)
[2022-07-10] MEDS: PRAMIPEXOLE 0.25 MG TABLET PO (19:41)
[2022-07-10] MEDS: MELATONIN 5 MG TABLET 10 MG PO (19:41)
[2022-07-11 07:00] VITALS: BMI 22.1
[2022-07-11 07:05] VITALS: PULSE 69
[2022-07-11] MEDS: METOPROLOL SUCCINATE (XL) 50 MG TAB PO (07:05)
[2022-07-11] MEDS: allopurinoL 100 MG TABLET PO (07:05)
[2022-07-11] MEDS: FUROSEMIDE 20 MG TABLET 80 MG PO (07:05)
[2022-07-11] MEDS: BACITRACIN OINTMENT BULK TUBE 1 APPLIC TOPICAL ×2 (07:05→19:47)
[2022-07-11] MEDS: SPIRONOLACTONE 25 MG TABLET 12.5 MG PO (07:05)
[2022-07-11] MEDS: METFORMIN ER 500 MG 1000 MG PO ×2 (07:05→15:43)
[2022-07-11] MEDS: DIGOXIN 125 MCG TABLET 62.5 MCG PO (07:05)
[2022-07-11] MEDS: LOPERAMIDE HCL 2 MG CAPSULE 4 MG PO (07:05)
[2022-07-11] MEDS: ASPIRIN 81 MG TAB.CHEW PO (07:05)
[2022-07-11] MEDS: CYANOCOBALAMIN (VITAMIN B-12) 500 MCG TABLET PO (07:05)
[2022-07-11] MEDS: MULTIVITAMIN/MINERALS 1 TABLET 1 TAB PO (07:05)
[2022-07-11] MEDS: lisinopriL 2.5 MG TABLET PO (07:05)
--- NOTE | 2022-07-11 13:41 | PC.NURSE ---
Worklist - Pain assessment intervention changed from Qshift to .PRN
[2022-07-11 16:00] VITALS: TEMP 36.6; O2SAT 98
[2022-07-11] MEDS: WARFARIN 3 MG TABLET PO (16:16)
[2022-07-11] MEDS: ATORVASTATIN CALCIUM 20 MG TABLET PO (19:47)
[2022-07-11] MEDS: PRAMIPEXOLE 0.25 MG TABLET PO (19:47)
[2022-07-11] MEDS: MELATONIN 5 MG TABLET 10 MG PO (19:47)
--- NOTE | 2022-07-12 05:08 | PC.NURSE ---
Week #1---care plan problems #1-19 reviewed. No changes made. Nothing added to temporary care plan. Continues on a 2000cc per day fluid restriction. Usually refuses any liquids at [facility]. Pain---no c/o's pain at [facility]. Is on no scheduled pain meds.
[2022-07-12 07:00] VITALS: BMI 22.1
--- NOTE | 2022-07-12 07:19 | PC.NURSE ---
Week #1: Care plan problems 1-19 and temporary care plan reviewed. No changes made.Nothing added to temporary care plan. Resident needs one assist with dressing, grooming and bathing. Encourage to participate as much as possible. Set up for oral cares. Is on 2 gram sodium & low fat diet. Independent with feeding. 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 No problems noted with chewing or swallowing. Pain: No complain of pain. Is on no schedule pain medications. Tylenol PSO is available if needed. Is able to verbalize need for pain.
[2022-07-12 08:07] VITALS: PULSE 76
[2022-07-12] MEDS: ASPIRIN 81 MG TAB.CHEW PO (08:07)
[2022-07-12] MEDS: CYANOCOBALAMIN (VITAMIN B-12) 500 MCG TABLET PO (08:07)
[2022-07-12] MEDS: DIGOXIN 125 MCG TABLET 62.5 MCG PO (08:07)
[2022-07-12] MEDS: BACITRACIN OINTMENT BULK TUBE 1 APPLIC TOPICAL ×2 (08:07→19:27)
[2022-07-12] MEDS: allopurinoL 100 MG TABLET PO (08:07)
[2022-07-12] MEDS: lisinopriL 2.5 MG TABLET PO (08:17)
[2022-07-12] MEDS: MULTIVITAMIN/MINERALS 1 TABLET 1 TAB PO (08:17)
[2022-07-12] MEDS: FUROSEMIDE 20 MG TABLET 80 MG PO (08:17)
[2022-07-12] MEDS: METFORMIN ER 500 MG 1000 MG PO ×2 (08:17→16:38)
[2022-07-12] MEDS: METOPROLOL SUCCINATE (XL) 50 MG TAB PO (08:17)
[2022-07-12] MEDS: LOPERAMIDE HCL 2 MG CAPSULE 4 MG PO (08:17)
[2022-07-12] MEDS: SPIRONOLACTONE 25 MG TABLET 12.5 MG PO (08:17)
[2022-07-12] MEDS: WARFARIN 2 MG TABLET 4 MG PO (16:38)
[2022-07-12 17:03] VITALS: TEMP 36.5; O2SAT 98
[2022-07-12] MEDS: ATORVASTATIN CALCIUM 20 MG TABLET PO (19:27)
[2022-07-12] MEDS: PRAMIPEXOLE 0.25 MG TABLET PO (19:27)
[2022-07-12] MEDS: MELATONIN 5 MG TABLET 10 MG PO (19:27)
[2022-07-13] MEDS: BACITRACIN OINTMENT BULK TUBE 1 APPLIC TOPICAL ×2 (07:05→20:02)
[2022-07-13 08:01] VITALS: PULSE 69
[2022-07-13] MEDS: FUROSEMIDE 20 MG TABLET 80 MG PO (08:01)
[2022-07-13] MEDS: lisinopriL 2.5 MG TABLET PO (08:01)
[2022-07-13] MEDS: DIGOXIN 125 MCG TABLET 62.5 MCG PO (08:01)
[2022-07-13] MEDS: ASPIRIN 81 MG TAB.CHEW PO (08:01)
[2022-07-13] MEDS: CYANOCOBALAMIN (VITAMIN B-12) 500 MCG TABLET PO (08:01)
[2022-07-13] MEDS: allopurinoL 100 MG TABLET PO (08:01)
[2022-07-13] MEDS: METOPROLOL SUCCINATE (XL) 50 MG TAB PO (08:02)
[2022-07-13] MEDS: MULTIVITAMIN/MINERALS 1 TABLET 1 TAB PO (08:02)
[2022-07-13] MEDS: METFORMIN ER 500 MG 1000 MG PO ×2 (08:02→16:28)
[2022-07-13] MEDS: LOPERAMIDE HCL 2 MG CAPSULE 4 MG PO (08:02)
[2022-07-13] MEDS: SPIRONOLACTONE 25 MG TABLET 12.5 MG PO (08:02)
[2022-07-13 08:20] LABS: INR 2.46 (0.91-1.10)
--- NOTE | 2022-07-13 09:18 | PC.NURSE ---
INR:Result reviewed by [facility] Coumadin NurseZahraa. Order: Coumadin 4mg daily. INR 07/18/22.
[2022-07-13 10:45] VITALS: BMI 22.1
[2022-07-13] MEDS: WARFARIN 2 MG TABLET 4 MG PO (20:02)
[2022-07-13] MEDS: ATORVASTATIN CALCIUM 20 MG TABLET PO (20:02)
[2022-07-13] MEDS: PRAMIPEXOLE 0.25 MG TABLET PO (20:02)
[2022-07-13] MEDS: MELATONIN 5 MG TABLET 10 MG PO (20:02)
[2022-07-13 21:11] VITALS: TEMP 37.2; O2SAT 97
[2022-07-14] MEDS: BACITRACIN OINTMENT BULK TUBE 1 APPLIC TOPICAL ×2 (07:11→19:38)
[2022-07-14 08:23] VITALS: PULSE 63
[2022-07-14] MEDS: CYANOCOBALAMIN (VITAMIN B-12) 500 MCG TABLET PO (08:23)
[2022-07-14] MEDS: ASPIRIN 81 MG TAB.CHEW PO (08:23)
[2022-07-14] MEDS: DIGOXIN 125 MCG TABLET 62.5 MCG PO (08:23)
[2022-07-14] MEDS: allopurinoL 100 MG TABLET PO (08:23)
[2022-07-14] MEDS: LOPERAMIDE HCL 2 MG CAPSULE 4 MG PO (08:24)
[2022-07-14] MEDS: FUROSEMIDE 20 MG TABLET 80 MG PO (08:24)
[2022-07-14] MEDS: METOPROLOL SUCCINATE (XL) 50 MG TAB PO (08:24)
[2022-07-14] MEDS: MULTIVITAMIN/MINERALS 1 TABLET 1 TAB PO (08:24)
[2022-07-14] MEDS: SPIRONOLACTONE 25 MG TABLET 12.5 MG PO (08:24)
[2022-07-14] MEDS: METFORMIN ER 500 MG 1000 MG PO ×2 (08:24→17:06)
[2022-07-14] MEDS: lisinopriL 2.5 MG TABLET PO (08:24)
[2022-07-14 14:41] VITALS: BMI 22.0
[2022-07-14] MEDS: WARFARIN 2 MG TABLET 4 MG PO (17:06)
[2022-07-14] MEDS: MELATONIN 5 MG TABLET 10 MG PO (19:38)
[2022-07-14] MEDS: PRAMIPEXOLE 0.25 MG TABLET PO (19:38)
[2022-07-14] MEDS: ATORVASTATIN CALCIUM 20 MG TABLET PO (19:38)
[2022-07-14 21:14] VITALS: TEMP 36.8; O2SAT 92
[2022-07-15 07:00] VITALS: BMI 22.0
[2022-07-15] MEDS: FUROSEMIDE 20 MG TABLET 80 MG PO (07:53)
[2022-07-15] MEDS: CYANOCOBALAMIN (VITAMIN B-12) 500 MCG TABLET PO (07:53)
[2022-07-15] MEDS: ASPIRIN 81 MG TAB.CHEW PO (07:53)
[2022-07-15] MEDS: BACITRACIN OINTMENT BULK TUBE 1 APPLIC TOPICAL ×2 (07:53→19:41)
[2022-07-15] MEDS: allopurinoL 100 MG TABLET PO (07:53)
[2022-07-15] MEDS: lisinopriL 2.5 MG TABLET PO (07:53)
[2022-07-15] MEDS: DIGOXIN 125 MCG TABLET 62.5 MCG PO (07:53)
[2022-07-15] MEDS: METFORMIN ER 500 MG 1000 MG PO ×2 (07:54→16:28)
[2022-07-15] MEDS: LOPERAMIDE HCL 2 MG CAPSULE 4 MG PO (07:54)
[2022-07-15] MEDS: SPIRONOLACTONE 25 MG TABLET 12.5 MG PO (07:55)
[2022-07-15] MEDS: METOPROLOL SUCCINATE (XL) 50 MG TAB PO (07:55)
[2022-07-15] MEDS: MULTIVITAMIN/MINERALS 1 TABLET 1 TAB PO (07:55)
[2022-07-15] MEDS: WARFARIN 2 MG TABLET 4 MG PO (16:28)
[2022-07-15 16:58] VITALS: TEMP 37.2; O2SAT 97
[2022-07-15] MEDS: MELATONIN 5 MG TABLET 10 MG PO (19:41)
[2022-07-15] MEDS: PRAMIPEXOLE 0.25 MG TABLET PO (19:41)
[2022-07-15] MEDS: ATORVASTATIN CALCIUM 20 MG TABLET PO (19:41)
[2022-07-16 07:00] VITALS: BMI 22.3
[2022-07-16] MEDS: allopurinoL 100 MG TABLET PO (07:55)
[2022-07-16] MEDS: ASPIRIN 81 MG TAB.CHEW PO (07:55)
[2022-07-16] MEDS: BACITRACIN OINTMENT BULK TUBE 1 APPLIC TOPICAL ×2 (07:55→19:27)
[2022-07-16] MEDS: CYANOCOBALAMIN (VITAMIN B-12) 500 MCG TABLET PO (07:55)
[2022-07-16] MEDS: LOPERAMIDE HCL 2 MG CAPSULE 4 MG PO (07:56)
[2022-07-16] MEDS: FUROSEMIDE 20 MG TABLET 80 MG PO (07:56)
[2022-07-16] MEDS: lisinopriL 2.5 MG TABLET PO (07:56)
[2022-07-16] MEDS: METOPROLOL SUCCINATE (XL) 50 MG TAB PO (07:56)
[2022-07-16] MEDS: METFORMIN ER 500 MG 1000 MG PO ×2 (07:56→16:38)
[2022-07-16] MEDS: MULTIVITAMIN/MINERALS 1 TABLET 1 TAB PO (07:56)
[2022-07-16] MEDS: SPIRONOLACTONE 25 MG TABLET 12.5 MG PO (07:57)
[2022-07-16 08:09] VITALS: PULSE 79
[2022-07-16] MEDS: DIGOXIN 125 MCG TABLET 62.5 MCG PO (08:09)
[2022-07-16 16:00] VITALS: TEMP 36.6; O2SAT 97
[2022-07-16] MEDS: WARFARIN 2 MG TABLET 4 MG PO (16:38)
[2022-07-16] MEDS: ATORVASTATIN CALCIUM 20 MG TABLET PO (19:27)
[2022-07-16] MEDS: MELATONIN 5 MG TABLET 10 MG PO (19:27)
[2022-07-16] MEDS: PRAMIPEXOLE 0.25 MG TABLET PO (19:27)
[2022-07-17 07:00] VITALS: BMI 22.1
[2022-07-17] MEDS: ASPIRIN 81 MG TAB.CHEW PO (07:40)
[2022-07-17] MEDS: allopurinoL 100 MG TABLET PO (07:40)
[2022-07-17] MEDS: FUROSEMIDE 20 MG TABLET 80 MG PO (07:40)
[2022-07-17] MEDS: BACITRACIN OINTMENT BULK TUBE 1 APPLIC TOPICAL ×2 (07:40→20:32)
[2022-07-17] MEDS: CYANOCOBALAMIN (VITAMIN B-12) 500 MCG TABLET PO (07:40)
[2022-07-17] MEDS: METFORMIN ER 500 MG 1000 MG PO ×2 (07:41→17:12)
[2022-07-17] MEDS: LOPERAMIDE HCL 2 MG CAPSULE 4 MG PO (07:41)
[2022-07-17] MEDS: METOPROLOL SUCCINATE (XL) 50 MG TAB PO (07:41)
[2022-07-17] MEDS: SPIRONOLACTONE 25 MG TABLET 12.5 MG PO (07:41)
[2022-07-17] MEDS: MULTIVITAMIN/MINERALS 1 TABLET 1 TAB PO (07:41)
[2022-07-17] MEDS: lisinopriL 2.5 MG TABLET PO (07:41)
[2022-07-17 07:55] VITALS: PULSE 71
[2022-07-17] MEDS: DIGOXIN 125 MCG TABLET 62.5 MCG PO (07:55)
--- NOTE | 2022-07-17 16:31 | PC.SPIRITC ---
provided visit for connection and support.
[2022-07-17] MEDS: WARFARIN 2 MG TABLET 4 MG PO (17:12)
[2022-07-17] MEDS: ATORVASTATIN CALCIUM 20 MG TABLET PO (20:32)
[2022-07-17] MEDS: MELATONIN 5 MG TABLET 10 MG PO (20:32)
[2022-07-17] MEDS: PRAMIPEXOLE 0.25 MG TABLET PO (20:32)
[2022-07-17 21:32] VITALS: TEMP 37.2; O2SAT 97
[2022-07-18 07:00] VITALS: BMI 22.3
[2022-07-18] MEDS: allopurinoL 100 MG TABLET PO (07:14)
[2022-07-18] MEDS: LOPERAMIDE HCL 2 MG CAPSULE 4 MG PO (07:14)
[2022-07-18] MEDS: CYANOCOBALAMIN (VITAMIN B-12) 500 MCG TABLET PO (07:14)
[2022-07-18] MEDS: ASPIRIN 81 MG TAB.CHEW PO (07:14)
[2022-07-18] MEDS: lisinopriL 2.5 MG TABLET PO (07:14)
[2022-07-18] MEDS: BACITRACIN OINTMENT BULK TUBE 1 APPLIC TOPICAL ×2 (07:14→19:22)
[2022-07-18] MEDS: FUROSEMIDE 20 MG TABLET 80 MG PO (07:14)
[2022-07-18] MEDS: MULTIVITAMIN/MINERALS 1 TABLET 1 TAB PO (07:15)
[2022-07-18] MEDS: METOPROLOL SUCCINATE (XL) 50 MG TAB PO (07:15)
[2022-07-18] MEDS: METFORMIN ER 500 MG 1000 MG PO ×2 (07:15→16:38)
[2022-07-18] MEDS: SPIRONOLACTONE 25 MG TABLET 12.5 MG PO (07:15)
[2022-07-18 07:31] VITALS: PULSE 78
[2022-07-18] MEDS: DIGOXIN 125 MCG TABLET 62.5 MCG PO (07:31)
[2022-07-18 11:01] LABS: INR 2.89 (0.91-1.10); Prothrombin Time 30.5 Seconds
[2022-07-18 16:00] VITALS: TEMP 36.6; O2SAT 99
[2022-07-18] MEDS: WARFARIN 3 MG TABLET PO (16:38)
[2022-07-18] MEDS: ATORVASTATIN CALCIUM 20 MG TABLET PO (19:22)
[2022-07-18] MEDS: PRAMIPEXOLE 0.25 MG TABLET PO (19:22)
[2022-07-18] MEDS: MELATONIN 5 MG TABLET 10 MG PO (19:22)
--- NOTE | 2022-07-18 22:02 | PC.NURSE ---
New Order: Gladys MADERA spoke to [facility] nurse on 07/18/22. New order as follows: -Coumadin 3 mg Saturday, Saturday, Saturday. -Coumadin 4 mg Saturday, , Saturday, and Saturday.
--- NOTE | 2022-07-19 01:57 | PC.NURSE ---
ramona # 2: Vital signs reviewed - no new concerns at this time. Care plan problems - and temporary care plan reviewed; no changes made at this time. 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 Falls: Resident is considered at high risk for fall and injury due to mild cognitive impairment and unsteady gait and weakness. He had recent fall on the 07/03/22 and intervention is to remind resident to call for assistance and staff to assist with mobility. he is currently 1 staff assist for mobility using a gait belt.
[2022-07-19] MEDS: allopurinoL 100 MG TABLET PO (07:02)
[2022-07-19] MEDS: ASPIRIN 81 MG TAB.CHEW PO (07:02)
[2022-07-19 07:03] VITALS: PULSE 86
[2022-07-19] MEDS: DIGOXIN 125 MCG TABLET 62.5 MCG PO (07:03)
[2022-07-19] MEDS: LOPERAMIDE HCL 2 MG CAPSULE 4 MG PO (07:03)
[2022-07-19] MEDS: FUROSEMIDE 20 MG TABLET 80 MG PO (07:03)
[2022-07-19] MEDS: CYANOCOBALAMIN (VITAMIN B-12) 500 MCG TABLET PO (07:03)
[2022-07-19] MEDS: lisinopriL 2.5 MG TABLET PO (07:03)
[2022-07-19] MEDS: BACITRACIN OINTMENT BULK TUBE 1 APPLIC TOPICAL ×2 (07:03→20:04)
[2022-07-19] MEDS: SPIRONOLACTONE 25 MG TABLET 12.5 MG PO (07:04)
[2022-07-19] MEDS: METOPROLOL SUCCINATE (XL) 50 MG TAB PO (07:04)
[2022-07-19] MEDS: METFORMIN ER 500 MG 1000 MG PO ×2 (07:04→16:12)
[2022-07-19] MEDS: MULTIVITAMIN/MINERALS 1 TABLET 1 TAB PO (07:04)
--- NOTE | 2022-07-19 09:47 | PC.NURSE ---
Week $#2: care plan problems and temporary care plan reviewed. No changes made. Nothing added to temporary care plan. Resident may ambulate in the hallway if he wants with one assist, transfer belt, walker and wheelchair behind. One assist with transfers. Is able to wheel self, will ask for assist as needed. Independent with bed & chair mobility. Staff to cue to do Q2H. Top side rails up to aid for positioning. Has a bed & recliner alarm. Fall: No falls this past month. Is a high fall risk according to assessment done on 03/23/22.
--- NOTE | 2022-07-19 10:24 | PC.SPIRITC ---
Dax expressed some frustration about the music at [facility] due to it not being the leigha he is used to along with not being able to sing. provided sounding board, explained that currently we are limited with our choices due to our sound platform and COVID restrictions.
[2022-07-19 11:15] VITALS: TEMP 36.1; O2SAT 94; BMI 22.1
[2022-07-19 11:16] VITALS: BP 107/54; PULSE 86; RESP 16; TEMP 36.1; O2SAT 94
[2022-07-19] MEDS: WARFARIN 2 MG TABLET 4 MG PO (16:12)
[2022-07-19 18:35] VITALS: TEMP 36.6; O2SAT 97
[2022-07-19] MEDS: ATORVASTATIN CALCIUM 20 MG TABLET PO (20:04)
[2022-07-19] MEDS: MELATONIN 5 MG TABLET 10 MG PO (20:04)
[2022-07-19] MEDS: PRAMIPEXOLE 0.25 MG TABLET PO (20:04)
[2022-07-20 07:06] VITALS: PULSE 62
[2022-07-20] MEDS: CYANOCOBALAMIN (VITAMIN B-12) 500 MCG TABLET PO (07:06)
[2022-07-20] MEDS: allopurinoL 100 MG TABLET PO (07:06)
[2022-07-20] MEDS: FUROSEMIDE 20 MG TABLET 80 MG PO (07:06)
[2022-07-20] MEDS: lisinopriL 2.5 MG TABLET PO (07:06)
[2022-07-20] MEDS: BACITRACIN OINTMENT BULK TUBE 1 APPLIC TOPICAL ×2 (07:06→20:03)
[2022-07-20] MEDS: DIGOXIN 125 MCG TABLET 62.5 MCG PO (07:06)
[2022-07-20] MEDS: ASPIRIN 81 MG TAB.CHEW PO (07:06)
[2022-07-20] MEDS: METOPROLOL SUCCINATE (XL) 50 MG TAB PO (07:07)
[2022-07-20] MEDS: MULTIVITAMIN/MINERALS 1 TABLET 1 TAB PO (07:07)
[2022-07-20] MEDS: LOPERAMIDE HCL 2 MG CAPSULE 4 MG PO (07:07)
[2022-07-20] MEDS: METFORMIN ER 500 MG 1000 MG PO ×2 (07:07→15:57)
[2022-07-20] MEDS: SPIRONOLACTONE 25 MG TABLET 12.5 MG PO (07:07)
[2022-07-20 14:11] VITALS: BMI 22.1
[2022-07-20] MEDS: WARFARIN 3 MG TABLET PO (15:57)
[2022-07-20] MEDS: MELATONIN 5 MG TABLET 10 MG PO (20:03)
[2022-07-20] MEDS: ATORVASTATIN CALCIUM 20 MG TABLET PO (20:03)
[2022-07-20] MEDS: PRAMIPEXOLE 0.25 MG TABLET PO (20:03)
[2022-07-20 21:48] VITALS: TEMP 36.7; O2SAT 97
[2022-07-21 07:00] VITALS: BMI 22.1
[2022-07-21] MEDS: lisinopriL 2.5 MG TABLET PO (08:02)
[2022-07-21] MEDS: METOPROLOL SUCCINATE (XL) 50 MG TAB PO (08:02)
[2022-07-21] MEDS: SPIRONOLACTONE 25 MG TABLET 12.5 MG PO (08:02)
[2022-07-21] MEDS: allopurinoL 100 MG TABLET PO (08:02)
[2022-07-21] MEDS: FUROSEMIDE 20 MG TABLET 80 MG PO (08:02)
[2022-07-21] MEDS: MULTIVITAMIN/MINERALS 1 TABLET 1 TAB PO (08:02)
[2022-07-21] MEDS: BACITRACIN OINTMENT BULK TUBE 1 APPLIC TOPICAL ×2 (08:02→19:07)
[2022-07-21] MEDS: METFORMIN ER 500 MG 1000 MG PO ×2 (08:02→15:52)
[2022-07-21] MEDS: CYANOCOBALAMIN (VITAMIN B-12) 500 MCG TABLET PO (08:02)
[2022-07-21] MEDS: LOPERAMIDE HCL 2 MG CAPSULE 4 MG PO (08:02)
[2022-07-21] MEDS: ASPIRIN 81 MG TAB.CHEW PO (08:02)
[2022-07-21 08:10] VITALS: PULSE 78
[2022-07-21] MEDS: DIGOXIN 125 MCG TABLET 62.5 MCG PO (08:10)
[2022-07-21] MEDS: WARFARIN 2 MG TABLET 4 MG PO (15:52)
[2022-07-21] MEDS: ATORVASTATIN CALCIUM 20 MG TABLET PO (19:07)
[2022-07-21] MEDS: MELATONIN 5 MG TABLET 10 MG PO (19:07)
[2022-07-21] MEDS: PRAMIPEXOLE 0.25 MG TABLET PO (19:07)
[2022-07-21 20:26] VITALS: TEMP 36.8; O2SAT 97
[2022-07-21] MEDS: NYSTATIN POWDER 1 APPLIC TOPICAL (23:22)
--- NOTE | 2022-07-22 05:13 | PC.NURSE ---
Skin: Resident has some redness on the right side of the groin along with some pain in the area. Nystatin PRN applied. Monitor until resolved.
[2022-07-22] MEDS: BACITRACIN OINTMENT BULK TUBE 1 APPLIC TOPICAL ×2 (08:01→19:47)
[2022-07-22] MEDS: CYANOCOBALAMIN (VITAMIN B-12) 500 MCG TABLET PO (08:01)
[2022-07-22] MEDS: allopurinoL 100 MG TABLET PO (08:01)
[2022-07-22] MEDS: ASPIRIN 81 MG TAB.CHEW PO (08:01)
[2022-07-22] MEDS: SPIRONOLACTONE 25 MG TABLET 12.5 MG PO (08:03)
[2022-07-22] MEDS: LOPERAMIDE HCL 2 MG CAPSULE 4 MG PO (08:03)
[2022-07-22] MEDS: lisinopriL 2.5 MG TABLET PO (08:03)
[2022-07-22] MEDS: METFORMIN ER 500 MG 1000 MG PO ×2 (08:03→15:45)
[2022-07-22] MEDS: METOPROLOL SUCCINATE (XL) 50 MG TAB PO (08:03)
[2022-07-22] MEDS: MULTIVITAMIN/MINERALS 1 TABLET 1 TAB PO (08:03)
[2022-07-22] MEDS: FUROSEMIDE 20 MG TABLET 80 MG PO (08:03)
[2022-07-22 08:16] VITALS: PULSE 82
[2022-07-22] MEDS: DIGOXIN 125 MCG TABLET 62.5 MCG PO (08:16)
[2022-07-22] MEDS: WARFARIN 2 MG TABLET 4 MG PO (15:45)
[2022-07-22] MEDS: PRAMIPEXOLE 0.25 MG TABLET PO (19:47)
[2022-07-22] MEDS: MELATONIN 5 MG TABLET 10 MG PO (19:47)
[2022-07-22] MEDS: ATORVASTATIN CALCIUM 20 MG TABLET PO (19:47)
[2022-07-22 20:56] VITALS: TEMP 36.9; O2SAT 97
--- NOTE | 2022-07-22 23:19 | PC.NURSE ---
Status/Cath: Resident having bladder pain, bladder scan showed 413cc in. Catheter changed using a 16Fr. 350cc out, cloudy and yellow.
--- NOTE | 2022-07-23 00:50 | PC.NURSE ---
Order: Called [facility] epic beacon analyst, asked if they wanted me to send the urine specimen I collected to lab. production control clerk said yes. Order a urine culture with diagnosis of sediment.
[2022-07-23 07:00] VITALS: BMI 22.1
[2022-07-23] MEDS: allopurinoL 100 MG TABLET PO (08:17)
[2022-07-23] MEDS: BACITRACIN OINTMENT BULK TUBE 1 APPLIC TOPICAL ×2 (08:17→19:54)
[2022-07-23] MEDS: LOPERAMIDE HCL 2 MG CAPSULE 4 MG PO (08:17)
[2022-07-23] MEDS: METOPROLOL SUCCINATE (XL) 50 MG TAB PO (08:17)
[2022-07-23] MEDS: lisinopriL 2.5 MG TABLET PO (08:17)
[2022-07-23] MEDS: FUROSEMIDE 20 MG TABLET 80 MG PO (08:17)
[2022-07-23] MEDS: CYANOCOBALAMIN (VITAMIN B-12) 500 MCG TABLET PO (08:17)
[2022-07-23] MEDS: METFORMIN ER 500 MG 1000 MG PO ×2 (08:17→16:05)
[2022-07-23] MEDS: ASPIRIN 81 MG TAB.CHEW PO (08:17)
[2022-07-23] MEDS: SPIRONOLACTONE 25 MG TABLET 12.5 MG PO (08:18)
[2022-07-23] MEDS: MULTIVITAMIN/MINERALS 1 TABLET 1 TAB PO (08:18)
[2022-07-23 08:25] VITALS: PULSE 86
[2022-07-23] MEDS: DIGOXIN 125 MCG TABLET 62.5 MCG PO (08:25)
[2022-07-23 16:00] VITALS: TEMP 36.6; O2SAT 99
[2022-07-23] MEDS: WARFARIN 3 MG TABLET PO (16:04)
[2022-07-23] MEDS: PRAMIPEXOLE 0.25 MG TABLET PO (19:54)
[2022-07-23] MEDS: MELATONIN 5 MG TABLET 10 MG PO (19:54)
[2022-07-23] MEDS: ATORVASTATIN CALCIUM 20 MG TABLET PO (19:54)
[2022-07-24 07:00] VITALS: BMI 22.3
[2022-07-24] MEDS: ASPIRIN 81 MG TAB.CHEW PO (08:12)
[2022-07-24] MEDS: CYANOCOBALAMIN (VITAMIN B-12) 500 MCG TABLET PO (08:12)
[2022-07-24] MEDS: BACITRACIN OINTMENT BULK TUBE 1 APPLIC TOPICAL ×2 (08:12→19:43)
[2022-07-24] MEDS: allopurinoL 100 MG TABLET PO (08:12)
[2022-07-24] MEDS: SPIRONOLACTONE 25 MG TABLET 12.5 MG PO (08:13)
[2022-07-24] MEDS: lisinopriL 2.5 MG TABLET PO (08:13)
[2022-07-24] MEDS: FUROSEMIDE 20 MG TABLET 80 MG PO (08:13)
[2022-07-24] MEDS: METFORMIN ER 500 MG 1000 MG PO ×2 (08:13→16:32)
[2022-07-24] MEDS: METOPROLOL SUCCINATE (XL) 50 MG TAB PO (08:13)
[2022-07-24] MEDS: MULTIVITAMIN/MINERALS 1 TABLET 1 TAB PO (08:13)
[2022-07-24] MEDS: LOPERAMIDE HCL 2 MG CAPSULE 4 MG PO (08:13)
[2022-07-24 08:25] VITALS: PULSE 70
[2022-07-24] MEDS: DIGOXIN 125 MCG TABLET 62.5 MCG PO (08:25)
[2022-07-24] MEDS: WARFARIN 2 MG TABLET 4 MG PO (16:32)
[2022-07-24 17:30] VITALS: TEMP 37.7; O2SAT 97
[2022-07-24] MEDS: ATORVASTATIN CALCIUM 20 MG TABLET PO (19:43)
[2022-07-24] MEDS: MELATONIN 5 MG TABLET 10 MG PO (19:43)
[2022-07-24] MEDS: PRAMIPEXOLE 0.25 MG TABLET PO (19:43)
[2022-07-25 01:45] VITALS: TEMP 36.3; O2SAT 99
[2022-07-25 07:00] VITALS: TEMP 36.2; BMI 22.1
[2022-07-25] MEDS: CYANOCOBALAMIN (VITAMIN B-12) 500 MCG TABLET PO (08:17)
[2022-07-25] MEDS: lisinopriL 2.5 MG TABLET PO (08:17)
[2022-07-25] MEDS: FUROSEMIDE 20 MG TABLET 80 MG PO (08:17)
[2022-07-25] MEDS: ASPIRIN 81 MG TAB.CHEW PO (08:17)
[2022-07-25] MEDS: METFORMIN ER 500 MG 1000 MG PO ×2 (08:17→16:44)
[2022-07-25] MEDS: allopurinoL 100 MG TABLET PO (08:17)
[2022-07-25] MEDS: METOPROLOL SUCCINATE (XL) 50 MG TAB PO (08:17)
[2022-07-25] MEDS: BACITRACIN OINTMENT BULK TUBE 1 APPLIC TOPICAL ×2 (08:17→19:07)
[2022-07-25] MEDS: LOPERAMIDE HCL 2 MG CAPSULE 4 MG PO (08:17)
[2022-07-25] MEDS: SPIRONOLACTONE 25 MG TABLET 12.5 MG PO (08:18)
[2022-07-25] MEDS: MULTIVITAMIN/MINERALS 1 TABLET 1 TAB PO (08:18)
[2022-07-25 08:24] VITALS: PULSE 76
[2022-07-25] MEDS: DIGOXIN 125 MCG TABLET 62.5 MCG PO (08:24)
[2022-07-25 08:45] LABS: INR 2.41 (0.91-1.10); Prothrombin Time 26.6 Seconds
--- NOTE | 2022-07-25 10:14 | PC.NURSE ---
INR: Result reviewed by [facility] Coumadin NurseMelody. Order: Continue Coumadin 3mg MoWeFr, 4mg all other days. INR 08/08/22.
--- NOTE | 2022-07-25 11:06 | PC.PHA ---
Pharmacy Note~ Patient needed cephalexin 500 mg tid for 7 days in June for UTI. Warfarin dosing per inr values continues for afib. Metformin continues and crcl is slightly above 30 ml/min.
[2022-07-25 15:00] VITALS: TEMP 36.6; O2SAT 99
[2022-07-25] MEDS: WARFARIN 3 MG TABLET PO (16:44)
[2022-07-25] MEDS: ATORVASTATIN CALCIUM 20 MG TABLET PO (19:07)
[2022-07-25] MEDS: PRAMIPEXOLE 0.25 MG TABLET PO (19:07)
[2022-07-25] MEDS: MELATONIN 5 MG TABLET 10 MG PO (19:07)
[2022-07-26 03:21] VITALS: TEMP 36.6; O2SAT 97
--- NOTE | 2022-07-26 07:01 | PC.NURSE ---
Week #3: Care plan problems 30-39 and temporary care plan reviewed. No changes made. Nothing added to temporary care plan. Has an indwelling catheter, bag emptied q shift by staff. Porter catheter changed monthly & PRN. Catheter irrigation PRN also done. Is continent of bowels. Needs one assist with toileting foe bowels. Wears pull ups. Pads, bolivar cares, clothing adjustment managed by staff. Skin: No issues at his time. Skin is checked during acres and on bath day.
[2022-07-26] MEDS: DIGOXIN 125 MCG TABLET 62.5 MCG PO (07:03)
[2022-07-26] MEDS: ASPIRIN 81 MG TAB.CHEW PO (07:03)
[2022-07-26] MEDS: FUROSEMIDE 20 MG TABLET 80 MG PO (07:03)
[2022-07-26] MEDS: allopurinoL 100 MG TABLET PO (07:03)
[2022-07-26] MEDS: BACITRACIN OINTMENT BULK TUBE 1 APPLIC TOPICAL ×2 (07:03→19:34)
[2022-07-26] MEDS: CYANOCOBALAMIN (VITAMIN B-12) 500 MCG TABLET PO (07:03)
[2022-07-26] MEDS: METFORMIN ER 500 MG 1000 MG PO ×2 (07:04→15:29)
[2022-07-26] MEDS: LOPERAMIDE HCL 2 MG CAPSULE 4 MG PO (07:04)
[2022-07-26] MEDS: lisinopriL 2.5 MG TABLET PO (07:04)
[2022-07-26] MEDS: METOPROLOL SUCCINATE (XL) 50 MG TAB PO (07:04)
[2022-07-26] MEDS: MULTIVITAMIN/MINERALS 1 TABLET 1 TAB PO (07:05)
[2022-07-26] MEDS: SPIRONOLACTONE 25 MG TABLET 12.5 MG PO (07:05)
--- NOTE | 2022-07-26 09:35 | PC.NURSE ---
COVID OUTBREAK TESTING: Resident provided verbal consent for outbreak COVID testing. Resident is currently asymptomatic. Resident/family will be notified only if resident is positive.
[2022-07-26 10:31] VITALS: TEMP 36.3; O2SAT 99
[2022-07-26 10:32] VITALS: BMI 22.1
[2022-07-26 10:34] VITALS: BP 120/68; PULSE 87; RESP 18; TEMP 36.3; O2SAT 99
[2022-07-26 12:14] LABS: SARS PCR* Negative SARS-CoV-2 (Negative)
[2022-07-26] MEDS: WARFARIN 2 MG TABLET 4 MG PO (15:29)
[2022-07-26] MEDS: ATORVASTATIN CALCIUM 20 MG TABLET PO (19:34)
[2022-07-26] MEDS: PRAMIPEXOLE 0.25 MG TABLET PO (19:34)
[2022-07-26] MEDS: MELATONIN 5 MG TABLET 10 MG PO (19:34)
[2022-07-26 21:08] VITALS: TEMP 37.3; O2SAT 99
[2022-07-27 03:58] VITALS: TEMP 36.6; O2SAT 97
[2022-07-27 07:00] VITALS: TEMP 36.5; O2SAT 98; BMI 22.3
[2022-07-27] MEDS: allopurinoL 100 MG TABLET PO (07:57)
[2022-07-27] MEDS: CYANOCOBALAMIN (VITAMIN B-12) 500 MCG TABLET PO (07:58)
[2022-07-27] MEDS: ASPIRIN 81 MG TAB.CHEW PO (07:58)
[2022-07-27] MEDS: BACITRACIN OINTMENT BULK TUBE 1 APPLIC TOPICAL ×2 (07:58→20:21)
[2022-07-27] MEDS: lisinopriL 2.5 MG TABLET PO (08:01)
[2022-07-27] MEDS: MULTIVITAMIN/MINERALS 1 TABLET 1 TAB PO (08:01)
[2022-07-27] MEDS: SPIRONOLACTONE 25 MG TABLET 12.5 MG PO (08:01)
[2022-07-27] MEDS: METFORMIN ER 500 MG 1000 MG PO ×2 (08:01→16:05)
[2022-07-27] MEDS: LOPERAMIDE HCL 2 MG CAPSULE 4 MG PO (08:01)
[2022-07-27] MEDS: FUROSEMIDE 20 MG TABLET 80 MG PO (08:01)
[2022-07-27] MEDS: METOPROLOL SUCCINATE (XL) 50 MG TAB PO (08:01)
[2022-07-27 08:08] VITALS: PULSE 76
[2022-07-27] MEDS: DIGOXIN 125 MCG TABLET 62.5 MCG PO (08:08)
[2022-07-27] MEDS: WARFARIN 3 MG TABLET PO (16:04)
[2022-07-27] MEDS: ATORVASTATIN CALCIUM 20 MG TABLET PO (20:21)
[2022-07-27] MEDS: MELATONIN 5 MG TABLET 10 MG PO (20:21)
[2022-07-27] MEDS: PRAMIPEXOLE 0.25 MG TABLET PO (20:21)
[2022-07-27 22:17] VITALS: TEMP 37.2; O2SAT 98
[2022-07-28 01:30] VITALS: TEMP 36.8; O2SAT 95
[2022-07-28 07:00] VITALS: TEMP 36.5; O2SAT 91; BMI 22.1
[2022-07-28] MEDS: CYANOCOBALAMIN (VITAMIN B-12) 500 MCG TABLET PO (08:13)
[2022-07-28] MEDS: allopurinoL 100 MG TABLET PO (08:13)
[2022-07-28] MEDS: BACITRACIN OINTMENT BULK TUBE 1 APPLIC TOPICAL ×2 (08:13→19:44)
[2022-07-28] MEDS: ASPIRIN 81 MG TAB.CHEW PO (08:13)
[2022-07-28] MEDS: METFORMIN ER 500 MG 1000 MG PO ×2 (08:14→16:20)
[2022-07-28] MEDS: METOPROLOL SUCCINATE (XL) 50 MG TAB PO (08:14)
[2022-07-28] MEDS: lisinopriL 2.5 MG TABLET PO (08:14)
[2022-07-28] MEDS: FUROSEMIDE 20 MG TABLET 80 MG PO (08:14)
[2022-07-28] MEDS: LOPERAMIDE HCL 2 MG CAPSULE 4 MG PO (08:14)
[2022-07-28] MEDS: MULTIVITAMIN/MINERALS 1 TABLET 1 TAB PO (08:15)
[2022-07-28] MEDS: SPIRONOLACTONE 25 MG TABLET 12.5 MG PO (08:15)
[2022-07-28 08:18] VITALS: PULSE 67
[2022-07-28] MEDS: DIGOXIN 125 MCG TABLET 62.5 MCG PO (08:18)
--- NOTE | 2022-07-28 13:55 | PC.NURSE ---
Skin Check - 4 superficial scratches on outside of R upper arm. Pt said he was not aware of how it happened. Looks like patient was scratching himself. No other areas of concern noted.
[2022-07-28] MEDS: WARFARIN 2 MG TABLET 4 MG PO (16:20)
[2022-07-28 16:46] VITALS: TEMP 37.4; O2SAT 98
[2022-07-28] MEDS: MELATONIN 5 MG TABLET 10 MG PO (19:44)
[2022-07-28] MEDS: ATORVASTATIN CALCIUM 20 MG TABLET PO (19:44)
[2022-07-28] MEDS: NYSTATIN POWDER 1 APPLIC TOPICAL (19:45)
[2022-07-28] MEDS: PRAMIPEXOLE 0.25 MG TABLET PO (19:45)
--- NOTE | 2022-07-28 21:33 | PC.NURSE ---
Hearing Aide: When residents L hearing aide was removed, the battery compartment hinge was missing a piece. It is still able to close and function. Resident unsure when damage occurred, but states it does fall out frequently.
[2022-07-29 02:28] VITALS: TEMP 36.3; O2SAT 99
[2022-07-29 07:00] VITALS: TEMP 36.4; O2SAT 100
[2022-07-29 07:12] VITALS: PULSE 81
[2022-07-29] MEDS: DIGOXIN 125 MCG TABLET 62.5 MCG PO (07:12)
[2022-07-29] MEDS: ASPIRIN 81 MG TAB.CHEW PO (07:12)
[2022-07-29] MEDS: BACITRACIN OINTMENT BULK TUBE 1 APPLIC TOPICAL ×2 (07:12→20:13)
[2022-07-29] MEDS: allopurinoL 100 MG TABLET PO (07:12)
[2022-07-29] MEDS: CYANOCOBALAMIN (VITAMIN B-12) 500 MCG TABLET PO (07:12)
[2022-07-29] MEDS: SPIRONOLACTONE 25 MG TABLET 12.5 MG PO (07:13)
[2022-07-29] MEDS: LOPERAMIDE HCL 2 MG CAPSULE 4 MG PO (07:13)
[2022-07-29] MEDS: METFORMIN ER 500 MG 1000 MG PO ×2 (07:13→16:32)
[2022-07-29] MEDS: FUROSEMIDE 20 MG TABLET 80 MG PO (07:13)
[2022-07-29] MEDS: METOPROLOL SUCCINATE (XL) 50 MG TAB PO (07:13)
[2022-07-29] MEDS: lisinopriL 2.5 MG TABLET PO (07:13)
[2022-07-29] MEDS: MULTIVITAMIN/MINERALS 1 TABLET 1 TAB PO (07:13)
[2022-07-29] MEDS: WARFARIN 2 MG TABLET 4 MG PO (16:32)
[2022-07-29 18:42] VITALS: TEMP 36.4; O2SAT 98
[2022-07-29] MEDS: MELATONIN 5 MG TABLET 10 MG PO (20:13)
[2022-07-29] MEDS: PRAMIPEXOLE 0.25 MG TABLET PO (20:13)
[2022-07-29] MEDS: ATORVASTATIN CALCIUM 20 MG TABLET PO (20:13)
[2022-07-29] MEDS: NYSTATIN POWDER 1 APPLIC TOPICAL (20:16)
[2022-07-29 23:00] VITALS: TEMP 36.5; O2SAT 98
[2022-07-30 07:00] VITALS: TEMP 36.5; O2SAT 100
[2022-07-30] MEDS: ASPIRIN 81 MG TAB.CHEW PO (07:03)
[2022-07-30] MEDS: FUROSEMIDE 20 MG TABLET 80 MG PO (07:03)
[2022-07-30] MEDS: lisinopriL 2.5 MG TABLET PO (07:03)
[2022-07-30] MEDS: CYANOCOBALAMIN (VITAMIN B-12) 500 MCG TABLET PO (07:03)
[2022-07-30] MEDS: allopurinoL 100 MG TABLET PO (07:03)
[2022-07-30] MEDS: BACITRACIN OINTMENT BULK TUBE 1 APPLIC TOPICAL ×2 (07:03→19:55)
[2022-07-30] MEDS: LOPERAMIDE HCL 2 MG CAPSULE 4 MG PO (07:03)
[2022-07-30] MEDS: METOPROLOL SUCCINATE (XL) 50 MG TAB PO (07:04)
[2022-07-30] MEDS: MULTIVITAMIN/MINERALS 1 TABLET 1 TAB PO (07:04)
[2022-07-30] MEDS: METFORMIN ER 500 MG 1000 MG PO ×2 (07:04→16:07)
[2022-07-30] MEDS: SPIRONOLACTONE 25 MG TABLET 12.5 MG PO (07:05)
[2022-07-30 08:13] VITALS: PULSE 58
[2022-07-30] MEDS: DIGOXIN 125 MCG TABLET 62.5 MCG PO (08:13)
--- NOTE | 2022-07-30 10:27 | PC.NURSE ---
COVID OUTBREAK TESTING: Resident provided verbal consent for outbreak COVID testing. Resident is currently asymptomatic. Resident/family will be notified only if resident is positive.
[2022-07-30 12:57] LABS: SARS PCR* Negative SARS-CoV-2 (Negative)
[2022-07-30 15:00] VITALS: TEMP 36.5; O2SAT 99
[2022-07-30] MEDS: WARFARIN 3 MG TABLET PO (16:07)
[2022-07-30] MEDS: ATORVASTATIN CALCIUM 20 MG TABLET PO (19:55)
[2022-07-30] MEDS: PRAMIPEXOLE 0.25 MG TABLET PO (19:55)
[2022-07-30] MEDS: MELATONIN 5 MG TABLET 10 MG PO (19:55)
[2022-07-31 03:56] VITALS: TEMP 36.4; O2SAT 95
[2022-07-31 07:00] VITALS: TEMP 36.9; O2SAT 100; BMI 22.1
[2022-07-31] MEDS: allopurinoL 100 MG TABLET PO (07:08)
[2022-07-31] MEDS: CYANOCOBALAMIN (VITAMIN B-12) 500 MCG TABLET PO (07:08)
[2022-07-31] MEDS: BACITRACIN OINTMENT BULK TUBE 1 APPLIC TOPICAL ×2 (07:08→19:31)
[2022-07-31] MEDS: ASPIRIN 81 MG TAB.CHEW PO (07:08)
[2022-07-31] MEDS: FUROSEMIDE 20 MG TABLET 80 MG PO (07:09)
[2022-07-31] MEDS: METFORMIN ER 500 MG 1000 MG PO ×2 (07:09→16:19)
[2022-07-31] MEDS: lisinopriL 2.5 MG TABLET PO (07:09)
[2022-07-31] MEDS: METOPROLOL SUCCINATE (XL) 50 MG TAB PO (07:09)
[2022-07-31] MEDS: LOPERAMIDE HCL 2 MG CAPSULE 4 MG PO (07:09)
[2022-07-31] MEDS: SPIRONOLACTONE 25 MG TABLET 12.5 MG PO (07:10)
[2022-07-31] MEDS: MULTIVITAMIN/MINERALS 1 TABLET 1 TAB PO (07:10)
[2022-07-31 07:14] VITALS: PULSE 62
[2022-07-31] MEDS: DIGOXIN 125 MCG TABLET 62.5 MCG PO (07:14)
--- NOTE | 2022-07-31 12:55 | PC.SOCIAL ---
Phone call to resident's son, Devin Gordon. Informed Devin that resident is needing more sweatpants. Devin stated he will order some and get them to [facility] as soon as possible.
[2022-07-31] MEDS: WARFARIN 2 MG TABLET 4 MG PO (16:19)
[2022-07-31 17:06] VITALS: TEMP 36.8; O2SAT 93
[2022-07-31] MEDS: ATORVASTATIN CALCIUM 20 MG TABLET PO (19:31)
[2022-07-31] MEDS: PRAMIPEXOLE 0.25 MG TABLET PO (19:32)
[2022-07-31] MEDS: MELATONIN 5 MG TABLET 10 MG PO (19:32)
[2022-08-01 03:35] VITALS: TEMP 36.4; O2SAT 97
[2022-08-01 07:00] VITALS: TEMP 36.6; O2SAT 98; BMI 22.1
[2022-08-01] MEDS: FUROSEMIDE 20 MG TABLET 80 MG PO (07:57)
[2022-08-01] MEDS: METFORMIN ER 500 MG 1000 MG PO ×2 (07:57→15:37)
[2022-08-01] MEDS: allopurinoL 100 MG TABLET PO (07:57)
[2022-08-01] MEDS: BACITRACIN OINTMENT BULK TUBE 1 APPLIC TOPICAL ×2 (07:57→20:12)
[2022-08-01] MEDS: METOPROLOL SUCCINATE (XL) 50 MG TAB PO (07:57)
[2022-08-01] MEDS: CYANOCOBALAMIN (VITAMIN B-12) 500 MCG TABLET PO (07:57)
[2022-08-01] MEDS: lisinopriL 2.5 MG TABLET PO (07:57)
[2022-08-01] MEDS: ASPIRIN 81 MG TAB.CHEW PO (07:57)
[2022-08-01] MEDS: LOPERAMIDE HCL 2 MG CAPSULE 4 MG PO (07:57)
[2022-08-01] MEDS: SPIRONOLACTONE 25 MG TABLET 12.5 MG PO (07:58)
[2022-08-01] MEDS: MULTIVITAMIN/MINERALS 1 TABLET 1 TAB PO (07:58)
[2022-08-01 08:20] VITALS: PULSE 88
[2022-08-01] MEDS: DIGOXIN 125 MCG TABLET 62.5 MCG PO (08:20)
[2022-08-01 15:00] VITALS: TEMP 36.6; O2SAT 98
[2022-08-01] MEDS: WARFARIN 3 MG TABLET PO (15:37)
--- NOTE | 2022-08-01 16:24 | PC.SPIRITC ---
provided devotional material to Dax to support his nahun practices.
[2022-08-01] MEDS: ATORVASTATIN CALCIUM 20 MG TABLET PO (20:12)
[2022-08-01] MEDS: MELATONIN 5 MG TABLET 10 MG PO (20:12)
[2022-08-01] MEDS: PRAMIPEXOLE 0.25 MG TABLET PO (20:12)
--- NOTE | 2022-08-02 02:43 | PC.NURSE ---
Week #4: No change in mood. Resident is self transferring more frequently. Is on melatonin 10mg PO HS. Temporary care plan reviewed, no change. Care plan 40-119 reviewed, no change. Resident is able to communicate needs, no change in chronic health condition or meds.
[2022-08-02 03:34] VITALS: TEMP 36.3; O2SAT 94
[2022-08-02 07:15] VITALS: PULSE 81
[2022-08-02] MEDS: FUROSEMIDE 20 MG TABLET 80 MG PO (07:15)
[2022-08-02] MEDS: DIGOXIN 125 MCG TABLET 62.5 MCG PO (07:15)
[2022-08-02] MEDS: BACITRACIN OINTMENT BULK TUBE 1 APPLIC TOPICAL ×2 (07:15→20:08)
[2022-08-02] MEDS: allopurinoL 100 MG TABLET PO (07:15)
[2022-08-02] MEDS: CYANOCOBALAMIN (VITAMIN B-12) 500 MCG TABLET PO (07:15)
[2022-08-02] MEDS: ASPIRIN 81 MG TAB.CHEW PO (07:15)
[2022-08-02] MEDS: METFORMIN ER 500 MG 1000 MG PO ×2 (07:16→16:27)
[2022-08-02] MEDS: LOPERAMIDE HCL 2 MG CAPSULE 4 MG PO (07:16)
[2022-08-02] MEDS: METOPROLOL SUCCINATE (XL) 50 MG TAB PO (07:16)
[2022-08-02] MEDS: lisinopriL 2.5 MG TABLET PO (07:16)
[2022-08-02] MEDS: MULTIVITAMIN/MINERALS 1 TABLET 1 TAB PO (07:16)
[2022-08-02] MEDS: SPIRONOLACTONE 25 MG TABLET 12.5 MG PO (07:16)
[2022-08-02 10:55] VITALS: BP 114/63; PULSE 85; RESP 16; TEMP 36.4; O2SAT 98; BMI 22.1
--- NOTE | 2022-08-02 13:46 | PC.NURSE ---
Week #4: Vital signs reviewed and no concerns at this time. No changes in mood/behavior. Reviewed temporary care plan and care problems 40-119 without changes made. Resident uses glasses, has 1 hearing aid in right ear but left one continues to be missing. Is alert and oriented but forgetful. Resident takes meds with assistance from nurse.
[2022-08-02] MEDS: WARFARIN 2 MG TABLET 4 MG PO (16:28)
[2022-08-02 17:13] VITALS: TEMP 37.7; O2SAT 96
[2022-08-02] MEDS: MELATONIN 5 MG TABLET 10 MG PO (20:08)
[2022-08-02] MEDS: ATORVASTATIN CALCIUM 20 MG TABLET PO (20:08)
[2022-08-02] MEDS: PRAMIPEXOLE 0.25 MG TABLET PO (20:08)
[2022-08-02 23:00] VITALS: TEMP 36.6; O2SAT 99
[2022-08-03 07:00] VITALS: TEMP 36.4; O2SAT 99; BMI 22.1
[2022-08-03] MEDS: CYANOCOBALAMIN (VITAMIN B-12) 500 MCG TABLET PO (07:58)
[2022-08-03] MEDS: LOPERAMIDE HCL 2 MG CAPSULE 4 MG PO (07:58)
[2022-08-03] MEDS: ASPIRIN 81 MG TAB.CHEW PO (07:58)
[2022-08-03] MEDS: METOPROLOL SUCCINATE (XL) 50 MG TAB PO (07:58)
[2022-08-03] MEDS: BACITRACIN OINTMENT BULK TUBE 1 APPLIC TOPICAL ×2 (07:58→19:16)
[2022-08-03] MEDS: METFORMIN ER 500 MG 1000 MG PO ×2 (07:58→15:35)
[2022-08-03] MEDS: allopurinoL 100 MG TABLET PO (07:58)
[2022-08-03] MEDS: FUROSEMIDE 20 MG TABLET 80 MG PO (07:58)
[2022-08-03] MEDS: lisinopriL 2.5 MG TABLET PO (07:58)
[2022-08-03] MEDS: MULTIVITAMIN/MINERALS 1 TABLET 1 TAB PO (07:59)
[2022-08-03] MEDS: SPIRONOLACTONE 25 MG TABLET 12.5 MG PO (07:59)
[2022-08-03 08:13] VITALS: PULSE 82
[2022-08-03] MEDS: DIGOXIN 125 MCG TABLET 62.5 MCG PO (08:13)
[2022-08-03] MEDS: WARFARIN 3 MG TABLET PO (15:34)
[2022-08-03 18:39] VITALS: TEMP 36.4; O2SAT 99
[2022-08-03] MEDS: ATORVASTATIN CALCIUM 20 MG TABLET PO (19:16)
[2022-08-03] MEDS: MELATONIN 5 MG TABLET 10 MG PO (19:16)
[2022-08-03] MEDS: PRAMIPEXOLE 0.25 MG TABLET PO (19:16)
[2022-08-04 03:50] VITALS: TEMP 36.2; O2SAT 100
[2022-08-04 07:00] VITALS: TEMP 36.5; O2SAT 100; BMI 22.3
[2022-08-04 08:07] VITALS: PULSE 78
[2022-08-04] MEDS: CYANOCOBALAMIN (VITAMIN B-12) 500 MCG TABLET PO (08:07)
[2022-08-04] MEDS: allopurinoL 100 MG TABLET PO (08:07)
[2022-08-04] MEDS: DIGOXIN 125 MCG TABLET 62.5 MCG PO (08:07)
[2022-08-04] MEDS: ASPIRIN 81 MG TAB.CHEW PO (08:07)
[2022-08-04] MEDS: BACITRACIN OINTMENT BULK TUBE 1 APPLIC TOPICAL ×2 (08:07→19:26)
[2022-08-04] MEDS: METOPROLOL SUCCINATE (XL) 50 MG TAB PO (08:08)
[2022-08-04] MEDS: METFORMIN ER 500 MG 1000 MG PO ×2 (08:08→16:19)
[2022-08-04] MEDS: FUROSEMIDE 20 MG TABLET 80 MG PO (08:08)
[2022-08-04] MEDS: LOPERAMIDE HCL 2 MG CAPSULE 4 MG PO (08:08)
[2022-08-04] MEDS: lisinopriL 2.5 MG TABLET PO (08:08)
[2022-08-04] MEDS: SPIRONOLACTONE 25 MG TABLET 12.5 MG PO (08:08)
[2022-08-04] MEDS: MULTIVITAMIN/MINERALS 1 TABLET 1 TAB PO (08:13)
[2022-08-04 15:00] VITALS: TEMP 36.7; O2SAT 100
[2022-08-04] MEDS: WARFARIN 2 MG TABLET 4 MG PO (16:19)
[2022-08-04] MEDS: PRAMIPEXOLE 0.25 MG TABLET PO (19:26)
[2022-08-04] MEDS: ATORVASTATIN CALCIUM 20 MG TABLET PO (19:26)
[2022-08-04] MEDS: MELATONIN 5 MG TABLET 10 MG PO (19:26)
[2022-08-04 23:00] VITALS: TEMP 36.7; O2SAT 98
[2022-08-05] MEDS: allopurinoL 100 MG TABLET PO (07:10)
[2022-08-05] MEDS: BACITRACIN OINTMENT BULK TUBE 1 APPLIC TOPICAL ×2 (07:10→19:19)
[2022-08-05] MEDS: ASPIRIN 81 MG TAB.CHEW PO (07:10)
[2022-08-05] MEDS: CYANOCOBALAMIN (VITAMIN B-12) 500 MCG TABLET PO (07:10)
[2022-08-05 07:15] VITALS: PULSE 64
[2022-08-05] MEDS: DIGOXIN 125 MCG TABLET 62.5 MCG PO (07:15)
[2022-08-05] MEDS: FUROSEMIDE 20 MG TABLET 80 MG PO (07:15)
[2022-08-05] MEDS: LOPERAMIDE HCL 2 MG CAPSULE 4 MG PO (07:16)
[2022-08-05] MEDS: lisinopriL 2.5 MG TABLET PO (07:16)
[2022-08-05] MEDS: METFORMIN ER 500 MG 1000 MG PO ×2 (07:16→15:27)
[2022-08-05] MEDS: SPIRONOLACTONE 25 MG TABLET 12.5 MG PO (07:17)
[2022-08-05] MEDS: METOPROLOL SUCCINATE (XL) 50 MG TAB PO (07:17)
[2022-08-05] MEDS: MULTIVITAMIN/MINERALS 1 TABLET 1 TAB PO (07:17)
[2022-08-05 10:43] VITALS: TEMP 36.2; O2SAT 98; BMI 22.3
--- NOTE | 2022-08-05 12:29 | PC.NURSE ---
Wound Care: Wound on resident`s left upper forearm has completely healed and wound care completed
[2022-08-05] MEDS: WARFARIN 2 MG TABLET 4 MG PO (15:27)
[2022-08-05] MEDS: ATORVASTATIN CALCIUM 20 MG TABLET PO (19:19)
[2022-08-05] MEDS: MELATONIN 5 MG TABLET 10 MG PO (19:20)
[2022-08-05] MEDS: PRAMIPEXOLE 0.25 MG TABLET PO (19:20)
[2022-08-05 21:44] VITALS: TEMP 36.3; O2SAT 98
[2022-08-06 02:47] VITALS: TEMP 36.6; O2SAT 96
[2022-08-06 07:00] VITALS: TEMP 36.3; O2SAT 98; BMI 22.5
[2022-08-06] MEDS: BACITRACIN OINTMENT BULK TUBE 1 APPLIC TOPICAL ×2 (08:09→19:36)
[2022-08-06] MEDS: CYANOCOBALAMIN (VITAMIN B-12) 500 MCG TABLET PO (08:09)
[2022-08-06] MEDS: FUROSEMIDE 20 MG TABLET 80 MG PO (08:09)
[2022-08-06] MEDS: allopurinoL 100 MG TABLET PO (08:09)
[2022-08-06] MEDS: ASPIRIN 81 MG TAB.CHEW PO (08:09)
[2022-08-06] MEDS: lisinopriL 2.5 MG TABLET PO (08:09)
[2022-08-06] MEDS: METOPROLOL SUCCINATE (XL) 50 MG TAB PO (08:10)
[2022-08-06] MEDS: METFORMIN ER 500 MG 1000 MG PO ×2 (08:10→16:18)
[2022-08-06] MEDS: LOPERAMIDE HCL 2 MG CAPSULE 4 MG PO (08:10)
[2022-08-06] MEDS: MULTIVITAMIN/MINERALS 1 TABLET 1 TAB PO (08:10)
[2022-08-06] MEDS: SPIRONOLACTONE 25 MG TABLET 12.5 MG PO (08:10)
[2022-08-06 08:18] VITALS: PULSE 82
[2022-08-06] MEDS: DIGOXIN 125 MCG TABLET 62.5 MCG PO (08:18)
[2022-08-06 13:51] LABS: SARS PCR* Negative SARS-CoV-2 (Negative)
[2022-08-06 15:00] VITALS: TEMP 36.8; O2SAT 99
[2022-08-06] MEDS: WARFARIN 3 MG TABLET PO (16:18)
[2022-08-06] MEDS: ATORVASTATIN CALCIUM 20 MG TABLET PO (19:36)
[2022-08-06] MEDS: MELATONIN 5 MG TABLET 10 MG PO (19:36)
[2022-08-06] MEDS: PRAMIPEXOLE 0.25 MG TABLET PO (19:36)
[2022-08-07 04:49] VITALS: TEMP 36.6; O2SAT 99
[2022-08-07 07:00] VITALS: TEMP 36.6; O2SAT 90; BMI 22.1
[2022-08-07] MEDS: ASPIRIN 81 MG TAB.CHEW PO (08:27)
[2022-08-07] MEDS: FUROSEMIDE 20 MG TABLET 80 MG PO (08:27)
[2022-08-07] MEDS: LOPERAMIDE HCL 2 MG CAPSULE 4 MG PO (08:27)
[2022-08-07] MEDS: METFORMIN ER 500 MG 1000 MG PO ×2 (08:27→16:20)
[2022-08-07] MEDS: allopurinoL 100 MG TABLET PO (08:27)
[2022-08-07] MEDS: CYANOCOBALAMIN (VITAMIN B-12) 500 MCG TABLET PO (08:27)
[2022-08-07] MEDS: BACITRACIN OINTMENT BULK TUBE 1 APPLIC TOPICAL (08:27)
[2022-08-07] MEDS: METOPROLOL SUCCINATE (XL) 50 MG TAB PO (08:27)
[2022-08-07] MEDS: lisinopriL 2.5 MG TABLET PO (08:27)
[2022-08-07] MEDS: SPIRONOLACTONE 25 MG TABLET 12.5 MG PO (08:28)
[2022-08-07] MEDS: MULTIVITAMIN/MINERALS 1 TABLET 1 TAB PO (08:28)
[2022-08-07 08:40] VITALS: PULSE 82
[2022-08-07] MEDS: DIGOXIN 125 MCG TABLET 62.5 MCG PO (08:40)
[2022-08-07] MEDS: WARFARIN 2 MG TABLET 4 MG PO (16:20)
[2022-08-07 17:03] VITALS: TEMP 36.7; O2SAT 99
[2022-08-07] MEDS: MELATONIN 5 MG TABLET 10 MG PO (20:19)
[2022-08-07] MEDS: ATORVASTATIN CALCIUM 20 MG TABLET PO (20:19)
[2022-08-07] MEDS: PRAMIPEXOLE 0.25 MG TABLET PO (20:19)
[2022-08-08 02:12] VITALS: TEMP 36.9; O2SAT 99
[2022-08-08] MEDS: ASPIRIN 81 MG TAB.CHEW PO (06:58)
[2022-08-08] MEDS: allopurinoL 100 MG TABLET PO (06:58)
[2022-08-08] MEDS: BACITRACIN OINTMENT BULK TUBE 1 APPLIC TOPICAL ×2 (06:58→19:50)
[2022-08-08 06:59] VITALS: PULSE 78
[2022-08-08] MEDS: LOPERAMIDE HCL 2 MG CAPSULE 4 MG PO (06:59)
[2022-08-08] MEDS: DIGOXIN 125 MCG TABLET 62.5 MCG PO (06:59)
[2022-08-08] MEDS: CYANOCOBALAMIN (VITAMIN B-12) 500 MCG TABLET PO (06:59)
[2022-08-08] MEDS: METOPROLOL SUCCINATE (XL) 50 MG TAB PO (06:59)
[2022-08-08] MEDS: METFORMIN ER 500 MG 1000 MG PO ×2 (06:59→16:12)
[2022-08-08] MEDS: lisinopriL 2.5 MG TABLET PO (06:59)
[2022-08-08] MEDS: FUROSEMIDE 20 MG TABLET 80 MG PO (06:59)
[2022-08-08] MEDS: SPIRONOLACTONE 25 MG TABLET 12.5 MG PO (07:00)
[2022-08-08] MEDS: MULTIVITAMIN/MINERALS 1 TABLET 1 TAB PO (07:00)
[2022-08-08 08:07] LABS: INR 2.15 (0.91-1.10); Prothrombin Time 24.4 Seconds
--- NOTE | 2022-08-08 09:25 | PC.NURSE ---
Coumadin orders: INR today was 2.15. Called Coumadin clinic and spoke with ERVIN Oliver. Orders revised to Coumadin 3mg on Mondays and Fridays, 4mg all other days. Recheck INR on 08/22/22.
[2022-08-08 11:18] VITALS: TEMP 36.7; O2SAT 96; BMI 22.3
[2022-08-08 15:00] VITALS: TEMP 36.8; O2SAT 100
[2022-08-08] MEDS: WARFARIN 2 MG TABLET 4 MG PO (16:12)
[2022-08-08] MEDS: MELATONIN 5 MG TABLET 10 MG PO (19:50)
[2022-08-08] MEDS: PRAMIPEXOLE 0.25 MG TABLET PO (19:50)
[2022-08-08] MEDS: ATORVASTATIN CALCIUM 20 MG TABLET PO (19:50)
--- NOTE | 2022-08-09 02:03 | PC.NURSE ---
Week #1: Resident has had no complaints of pain on NOC in the past month. Is on no pain relief medication. Temporary care plan reviewed, no change. Care plan 1-19 reviewed, no change. Resident is one assist as needed. Bed/chair alarms were discontinued. Will call when needing assistance. No change in nutrition, has snacks in room.
[2022-08-09 02:34] VITALS: TEMP 36.3; O2SAT 97
[2022-08-09 07:35] VITALS: PULSE 62
[2022-08-09] MEDS: allopurinoL 100 MG TABLET PO (07:35)
[2022-08-09] MEDS: METFORMIN ER 500 MG 1000 MG PO ×2 (07:35→15:40)
[2022-08-09] MEDS: lisinopriL 2.5 MG TABLET PO (07:35)
[2022-08-09] MEDS: METOPROLOL SUCCINATE (XL) 50 MG TAB PO (07:35)
[2022-08-09] MEDS: SPIRONOLACTONE 25 MG TABLET 12.5 MG PO (07:35)
[2022-08-09] MEDS: MULTIVITAMIN/MINERALS 1 TABLET 1 TAB PO (07:35)
[2022-08-09] MEDS: BACITRACIN OINTMENT BULK TUBE 1 APPLIC TOPICAL ×2 (07:35→19:35)
[2022-08-09] MEDS: LOPERAMIDE HCL 2 MG CAPSULE 4 MG PO (07:35)
[2022-08-09] MEDS: DIGOXIN 125 MCG TABLET 62.5 MCG PO (07:35)
[2022-08-09] MEDS: CYANOCOBALAMIN (VITAMIN B-12) 500 MCG TABLET PO (07:35)
[2022-08-09] MEDS: FUROSEMIDE 20 MG TABLET 80 MG PO (07:35)
[2022-08-09] MEDS: ASPIRIN 81 MG TAB.CHEW PO (07:35)
[2022-08-09 10:58] VITALS: TEMP 36.3; O2SAT 97; BMI 22.3
--- NOTE | 2022-08-09 10:59 | PC.NURSE ---
Week #1: Care plan problems 1-19 and temporary care plan reviewed. No changes made.Nothing added to temporary care plan. Resident needs one assist with dressing, grooming and bathing. Encourage to participate as much as possible. Set up for oral cares. Is on 2 gram sodium & low fat diet. Independent with feeding. 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 No problems noted with chewing or swallowing. Pain: No complain of pain the past month. Is on no schedule pain medications. Tylenol PSO is available if needed. Is able to verbalize need for pain.
[2022-08-09] MEDS: WARFARIN 2 MG TABLET 4 MG PO (15:40)
[2022-08-09 18:43] VITALS: TEMP 36.8; O2SAT 100
[2022-08-09] MEDS: ATORVASTATIN CALCIUM 20 MG TABLET PO (19:35)
[2022-08-09] MEDS: PRAMIPEXOLE 0.25 MG TABLET PO (19:36)
[2022-08-09] MEDS: MELATONIN 5 MG TABLET 10 MG PO (19:36)
[2022-08-10 02:20] VITALS: TEMP 36.7; O2SAT 99
[2022-08-10] MEDS: ASPIRIN 81 MG TAB.CHEW PO (07:12)
[2022-08-10] MEDS: FUROSEMIDE 20 MG TABLET 80 MG PO (07:12)
[2022-08-10] MEDS: CYANOCOBALAMIN (VITAMIN B-12) 500 MCG TABLET PO (07:12)
[2022-08-10] MEDS: BACITRACIN OINTMENT BULK TUBE 1 APPLIC TOPICAL ×2 (07:12→20:09)
[2022-08-10] MEDS: allopurinoL 100 MG TABLET PO (07:12)
[2022-08-10] MEDS: METOPROLOL SUCCINATE (XL) 50 MG TAB PO (07:15)
[2022-08-10] MEDS: LOPERAMIDE HCL 2 MG CAPSULE 4 MG PO (07:15)
[2022-08-10] MEDS: METFORMIN ER 500 MG 1000 MG PO ×2 (07:15→15:46)
[2022-08-10] MEDS: SPIRONOLACTONE 25 MG TABLET 12.5 MG PO (07:15)
[2022-08-10] MEDS: MULTIVITAMIN/MINERALS 1 TABLET 1 TAB PO (07:15)
[2022-08-10] MEDS: lisinopriL 2.5 MG TABLET PO (07:15)
[2022-08-10 07:20] VITALS: PULSE 64
[2022-08-10] MEDS: DIGOXIN 125 MCG TABLET 62.5 MCG PO (07:20)
[2022-08-10 15:15] VITALS: TEMP 36.3; O2SAT 99; BMI 22.5
[2022-08-10] MEDS: WARFARIN 3 MG TABLET PO (15:46)
[2022-08-10] MEDS: MELATONIN 5 MG TABLET 10 MG PO (20:09)
[2022-08-10] MEDS: ATORVASTATIN CALCIUM 20 MG TABLET PO (20:09)
[2022-08-10] MEDS: PRAMIPEXOLE 0.25 MG TABLET PO (20:09)
[2022-08-11 01:39] VITALS: TEMP 36.8; O2SAT 99
[2022-08-11 08:17] VITALS: PULSE 82
[2022-08-11] MEDS: METOPROLOL SUCCINATE (XL) 50 MG TAB PO (08:17)
[2022-08-11] MEDS: FUROSEMIDE 20 MG TABLET 80 MG PO (08:17)
[2022-08-11] MEDS: SPIRONOLACTONE 25 MG TABLET 12.5 MG PO (08:17)
[2022-08-11] MEDS: MULTIVITAMIN/MINERALS 1 TABLET 1 TAB PO (08:17)
[2022-08-11] MEDS: allopurinoL 100 MG TABLET PO (08:17)
[2022-08-11] MEDS: LOPERAMIDE HCL 2 MG CAPSULE 4 MG PO (08:17)
[2022-08-11] MEDS: BACITRACIN OINTMENT BULK TUBE 1 APPLIC TOPICAL ×2 (08:17→19:36)
[2022-08-11] MEDS: lisinopriL 2.5 MG TABLET PO (08:17)
[2022-08-11] MEDS: METFORMIN ER 500 MG 1000 MG PO ×2 (08:17→16:25)
[2022-08-11] MEDS: DIGOXIN 125 MCG TABLET 62.5 MCG PO (08:17)
[2022-08-11] MEDS: CYANOCOBALAMIN (VITAMIN B-12) 500 MCG TABLET PO (08:17)
[2022-08-11] MEDS: ASPIRIN 81 MG TAB.CHEW PO (08:17)
[2022-08-11 10:51] VITALS: TEMP 36.2; O2SAT 98; BMI 22.4
[2022-08-11 16:01] VITALS: BP 117/59; PULSE 90; RESP 18; TEMP 36.8; O2SAT 97
[2022-08-11] MEDS: WARFARIN 2 MG TABLET 4 MG PO (16:25)
[2022-08-11] MEDS: ATORVASTATIN CALCIUM 20 MG TABLET PO (19:36)
[2022-08-11] MEDS: MELATONIN 5 MG TABLET 10 MG PO (19:36)
[2022-08-11] MEDS: PRAMIPEXOLE 0.25 MG TABLET PO (19:36)
[2022-08-11 23:00] VITALS: TEMP 36.1; O2SAT 94
[2022-08-12 07:04] VITALS: PULSE 68
[2022-08-12] MEDS: FUROSEMIDE 20 MG TABLET 80 MG PO (07:04)
[2022-08-12] MEDS: METFORMIN ER 500 MG 1000 MG PO ×2 (07:04→16:26)
[2022-08-12] MEDS: METOPROLOL SUCCINATE (XL) 50 MG TAB PO (07:04)
[2022-08-12] MEDS: lisinopriL 2.5 MG TABLET PO (07:04)
[2022-08-12] MEDS: MULTIVITAMIN/MINERALS 1 TABLET 1 TAB PO (07:04)
[2022-08-12] MEDS: LOPERAMIDE HCL 2 MG CAPSULE 4 MG PO (07:04)
[2022-08-12] MEDS: SPIRONOLACTONE 25 MG TABLET 12.5 MG PO (07:04)
[2022-08-12] MEDS: DIGOXIN 125 MCG TABLET 62.5 MCG PO (07:04)
[2022-08-12] MEDS: BACITRACIN OINTMENT BULK TUBE 1 APPLIC TOPICAL ×2 (07:05→19:58)
[2022-08-12] MEDS: CYANOCOBALAMIN (VITAMIN B-12) 500 MCG TABLET PO (07:05)
[2022-08-12] MEDS: allopurinoL 100 MG TABLET PO (07:05)
[2022-08-12] MEDS: ASPIRIN 81 MG TAB.CHEW PO (07:05)
[2022-08-12 10:55] VITALS: TEMP 36.6; O2SAT 100
[2022-08-12 10:56] VITALS: BMI 49.1
[2022-08-12] MEDS: WARFARIN 2 MG TABLET 4 MG PO (16:27)
[2022-08-12 16:56] VITALS: TEMP 36.6; O2SAT 100
[2022-08-12] MEDS: MELATONIN 5 MG TABLET 10 MG PO (19:58)
[2022-08-12] MEDS: ATORVASTATIN CALCIUM 20 MG TABLET PO (19:58)
[2022-08-12] MEDS: PRAMIPEXOLE 0.25 MG TABLET PO (19:58)
[2022-08-12 23:00] VITALS: TEMP 36.7; O2SAT 96
[2022-08-13] MEDS: BACITRACIN OINTMENT BULK TUBE 1 APPLIC TOPICAL ×2 (07:11→19:26)
[2022-08-13 08:08] VITALS: PULSE 89
[2022-08-13] MEDS: ASPIRIN 81 MG TAB.CHEW PO (08:08)
[2022-08-13] MEDS: allopurinoL 100 MG TABLET PO (08:08)
[2022-08-13] MEDS: CYANOCOBALAMIN (VITAMIN B-12) 500 MCG TABLET PO (08:08)
[2022-08-13] MEDS: DIGOXIN 125 MCG TABLET 62.5 MCG PO (08:08)
[2022-08-13] MEDS: LOPERAMIDE HCL 2 MG CAPSULE 4 MG PO (08:09)
[2022-08-13] MEDS: FUROSEMIDE 20 MG TABLET 80 MG PO (08:09)
[2022-08-13] MEDS: METOPROLOL SUCCINATE (XL) 50 MG TAB PO (08:09)
[2022-08-13] MEDS: MULTIVITAMIN/MINERALS 1 TABLET 1 TAB PO (08:09)
[2022-08-13] MEDS: METFORMIN ER 500 MG 1000 MG PO ×2 (08:09→15:53)
[2022-08-13] MEDS: lisinopriL 2.5 MG TABLET PO (08:09)
[2022-08-13] MEDS: SPIRONOLACTONE 25 MG TABLET 12.5 MG PO (08:10)
[2022-08-13 11:01] VITALS: TEMP 36.5; O2SAT 98
[2022-08-13 12:50] LABS: SARS PCR* Negative SARS-CoV-2 (Negative)
[2022-08-13 15:00] VITALS: TEMP 36.6; O2SAT 100
[2022-08-13] MEDS: WARFARIN 3 MG TABLET PO (15:53)
--- NOTE | 2022-08-13 15:59 | PC.NURSE ---
COVID OUTBREAK TESTING: Resident provided verbal consent for outbreak COVID testing. Resident is currently asymptomatic. Resident/family will be notified only if resident is positive.
[2022-08-13] MEDS: MELATONIN 5 MG TABLET 10 MG PO (19:26)
[2022-08-13] MEDS: PRAMIPEXOLE 0.25 MG TABLET PO (19:26)
[2022-08-13] MEDS: ATORVASTATIN CALCIUM 20 MG TABLET PO (19:26)
[2022-08-14 02:29] VITALS: TEMP 36.6; O2SAT 95
[2022-08-14] MEDS: ASPIRIN 81 MG TAB.CHEW PO (08:24)
[2022-08-14] MEDS: allopurinoL 100 MG TABLET PO (08:24)
[2022-08-14] MEDS: BACITRACIN OINTMENT BULK TUBE 1 APPLIC TOPICAL ×2 (08:24→19:26)
[2022-08-14 08:25] VITALS: PULSE 71
[2022-08-14] MEDS: MULTIVITAMIN/MINERALS 1 TABLET 1 TAB PO (08:25)
[2022-08-14] MEDS: DIGOXIN 125 MCG TABLET 62.5 MCG PO (08:25)
[2022-08-14] MEDS: LOPERAMIDE HCL 2 MG CAPSULE 4 MG PO (08:25)
[2022-08-14] MEDS: lisinopriL 2.5 MG TABLET PO (08:25)
[2022-08-14] MEDS: METOPROLOL SUCCINATE (XL) 50 MG TAB PO (08:25)
[2022-08-14] MEDS: FUROSEMIDE 20 MG TABLET 80 MG PO (08:25)
[2022-08-14] MEDS: METFORMIN ER 500 MG 1000 MG PO ×2 (08:25→16:25)
[2022-08-14] MEDS: CYANOCOBALAMIN (VITAMIN B-12) 500 MCG TABLET PO (08:25)
[2022-08-14] MEDS: SPIRONOLACTONE 25 MG TABLET 12.5 MG PO (08:25)
[2022-08-14 10:38] VITALS: TEMP 36.7; O2SAT 96; BMI 22.3
[2022-08-14] MEDS: WARFARIN 2 MG TABLET 4 MG PO (16:25)
[2022-08-14] MEDS: ATORVASTATIN CALCIUM 20 MG TABLET PO (19:26)
[2022-08-14] MEDS: PRAMIPEXOLE 0.25 MG TABLET PO (19:26)
[2022-08-14] MEDS: MELATONIN 5 MG TABLET 10 MG PO (19:26)
[2022-08-14 21:02] VITALS: TEMP 36.9; O2SAT 97
[2022-08-15 02:22] VITALS: TEMP 36.8; O2SAT 94
[2022-08-15 07:13] VITALS: PULSE 68
[2022-08-15] MEDS: CYANOCOBALAMIN (VITAMIN B-12) 500 MCG TABLET PO (07:13)
[2022-08-15] MEDS: FUROSEMIDE 20 MG TABLET 80 MG PO (07:13)
[2022-08-15] MEDS: allopurinoL 100 MG TABLET PO (07:13)
[2022-08-15] MEDS: BACITRACIN OINTMENT BULK TUBE 1 APPLIC TOPICAL ×2 (07:13→19:32)
[2022-08-15] MEDS: ASPIRIN 81 MG TAB.CHEW PO (07:13)
[2022-08-15] MEDS: DIGOXIN 125 MCG TABLET 62.5 MCG PO (07:13)
[2022-08-15] MEDS: SPIRONOLACTONE 25 MG TABLET 12.5 MG PO (07:14)
[2022-08-15] MEDS: METFORMIN ER 500 MG 1000 MG PO ×2 (07:14→15:54)
[2022-08-15] MEDS: lisinopriL 2.5 MG TABLET PO (07:14)
[2022-08-15] MEDS: METOPROLOL SUCCINATE (XL) 50 MG TAB PO (07:14)
[2022-08-15] MEDS: LOPERAMIDE HCL 2 MG CAPSULE 4 MG PO (07:14)
[2022-08-15] MEDS: MULTIVITAMIN/MINERALS 1 TABLET 1 TAB PO (07:14)
[2022-08-15 11:01] VITALS: TEMP 36.6; O2SAT 100; BMI 22.2
[2022-08-15 15:00] VITALS: TEMP 36.8; O2SAT 99
[2022-08-15] MEDS: WARFARIN 2 MG TABLET 4 MG PO (15:53)
[2022-08-15] MEDS: PRAMIPEXOLE 0.25 MG TABLET PO (19:32)
[2022-08-15] MEDS: MELATONIN 5 MG TABLET 10 MG PO (19:32)
[2022-08-15] MEDS: ATORVASTATIN CALCIUM 20 MG TABLET PO (19:32)
--- NOTE | 2022-08-16 02:17 | PC.NURSE ---
Week #2: Resident is a fall risk, no falls in the last month, has hourly visual safety checks. Bed and chair alarms were discontinued. Temporary care plan reviewed, no change. Care plan reviewed, no change. Resident is one assist for transfers mostly stand by due to resident refusing help. Resident can reposition self in bed. Will call when needing help.
[2022-08-16 02:34] VITALS: TEMP 36.5; O2SAT 97
[2022-08-16 08:04] VITALS: PULSE 75
[2022-08-16] MEDS: FUROSEMIDE 20 MG TABLET 80 MG PO (08:04)
[2022-08-16] MEDS: MULTIVITAMIN/MINERALS 1 TABLET 1 TAB PO (08:04)
[2022-08-16] MEDS: CYANOCOBALAMIN (VITAMIN B-12) 500 MCG TABLET PO (08:04)
[2022-08-16] MEDS: SPIRONOLACTONE 25 MG TABLET 12.5 MG PO (08:04)
[2022-08-16] MEDS: allopurinoL 100 MG TABLET PO (08:04)
[2022-08-16] MEDS: METFORMIN ER 500 MG 1000 MG PO ×2 (08:04→16:28)
[2022-08-16] MEDS: lisinopriL 2.5 MG TABLET PO (08:04)
[2022-08-16] MEDS: ASPIRIN 81 MG TAB.CHEW PO (08:04)
[2022-08-16] MEDS: DIGOXIN 125 MCG TABLET 62.5 MCG PO (08:04)
[2022-08-16] MEDS: LOPERAMIDE HCL 2 MG CAPSULE 4 MG PO (08:04)
[2022-08-16] MEDS: BACITRACIN OINTMENT BULK TUBE 1 APPLIC TOPICAL ×2 (08:04→20:04)
[2022-08-16] MEDS: METOPROLOL SUCCINATE (XL) 50 MG TAB PO (08:04)
[2022-08-16 13:38] VITALS: TEMP 36.2; O2SAT 96; BMI 22.6
--- NOTE | 2022-08-16 14:52 | PC.NURSE ---
Week $#2: Care plan problems and temporary care plan reviewed. No changes made. Nothing added to temporary care plan. Resident may ambulate in the hallway if he wants with one assist, transfer belt, walker and wheelchair behind. One assist with transfers. Is able to wheel self, will ask for assist as needed. Independent with bed & chair mobility. Staff to cue to do Q2H. Top side rails up to aid for positioning. Bed and chair alarms discontinued. Fall: No falls this past month. Is a high fall risk according to assessment done on 03/23/22.
[2022-08-16] MEDS: WARFARIN 2 MG TABLET 4 MG PO (16:28)
[2022-08-16 18:42] VITALS: TEMP 36.6; O2SAT 99
[2022-08-16] MEDS: ATORVASTATIN CALCIUM 20 MG TABLET PO (20:04)
[2022-08-16] MEDS: MELATONIN 5 MG TABLET 10 MG PO (20:04)
[2022-08-16] MEDS: PRAMIPEXOLE 0.25 MG TABLET PO (20:05)
[2022-08-16 23:00] VITALS: TEMP 36.4; O2SAT 99
[2022-08-17 08:02] VITALS: PULSE 64
[2022-08-17] MEDS: allopurinoL 100 MG TABLET PO (08:02)
[2022-08-17] MEDS: CYANOCOBALAMIN (VITAMIN B-12) 500 MCG TABLET PO (08:02)
[2022-08-17] MEDS: ASPIRIN 81 MG TAB.CHEW PO (08:02)
[2022-08-17] MEDS: BACITRACIN OINTMENT BULK TUBE 1 APPLIC TOPICAL ×2 (08:02→19:17)
[2022-08-17] MEDS: DIGOXIN 125 MCG TABLET 62.5 MCG PO (08:02)
[2022-08-17] MEDS: METFORMIN ER 500 MG 1000 MG PO ×2 (08:03→16:31)
[2022-08-17] MEDS: MULTIVITAMIN/MINERALS 1 TABLET 1 TAB PO (08:03)
[2022-08-17] MEDS: LOPERAMIDE HCL 2 MG CAPSULE 4 MG PO (08:03)
[2022-08-17] MEDS: lisinopriL 2.5 MG TABLET PO (08:03)
[2022-08-17] MEDS: SPIRONOLACTONE 25 MG TABLET 12.5 MG PO (08:03)
[2022-08-17] MEDS: FUROSEMIDE 20 MG TABLET 80 MG PO (08:03)
[2022-08-17] MEDS: METOPROLOL SUCCINATE (XL) 50 MG TAB PO (08:03)
[2022-08-17 10:49] VITALS: TEMP 36.6; O2SAT 96; BMI 22.6
--- NOTE | 2022-08-17 12:33 | PC.NURSE ---
Recert Visit: Resident seen by Dr. Jasmine. Orders reviewed and renewed of 75 days with changes. Order: Creatinine, HgbA1C 08/24/22, change weights to weekly, Contact sponge packer at [facility] pacemaker.
[2022-08-17] MEDS: WARFARIN 3 MG TABLET PO (16:30)
[2022-08-17] MEDS: ATORVASTATIN CALCIUM 20 MG TABLET PO (19:17)
[2022-08-17] MEDS: PRAMIPEXOLE 0.25 MG TABLET PO (19:17)
[2022-08-17] MEDS: MELATONIN 5 MG TABLET 10 MG PO (19:17)
[2022-08-17 21:24] VITALS: TEMP 36.7; O2SAT 99
[2022-08-18 01:24] VITALS: TEMP 36.7; O2SAT 99
[2022-08-18] MEDS: METOPROLOL SUCCINATE (XL) 50 MG TAB PO (07:34)
[2022-08-18] MEDS: LOPERAMIDE HCL 2 MG CAPSULE 4 MG PO (07:34)
[2022-08-18] MEDS: lisinopriL 2.5 MG TABLET PO (07:34)
[2022-08-18] MEDS: allopurinoL 100 MG TABLET PO (07:34)
[2022-08-18] MEDS: FUROSEMIDE 20 MG TABLET 80 MG PO (07:34)
[2022-08-18] MEDS: METFORMIN ER 500 MG 1000 MG PO ×2 (07:34→16:05)
[2022-08-18] MEDS: ASPIRIN 81 MG TAB.CHEW PO (07:34)
[2022-08-18] MEDS: SPIRONOLACTONE 25 MG TABLET 12.5 MG PO (07:34)
[2022-08-18] MEDS: MULTIVITAMIN/MINERALS 1 TABLET 1 TAB PO (07:34)
[2022-08-18] MEDS: BACITRACIN OINTMENT BULK TUBE 1 APPLIC TOPICAL ×2 (07:34→20:06)
[2022-08-18] MEDS: CYANOCOBALAMIN (VITAMIN B-12) 500 MCG TABLET PO (07:34)
[2022-08-18 07:39] VITALS: PULSE 62
[2022-08-18] MEDS: DIGOXIN 125 MCG TABLET 62.5 MCG PO (07:39)
[2022-08-18 10:38] VITALS: TEMP 36.4; O2SAT 100
[2022-08-18] MEDS: WARFARIN 2 MG TABLET 4 MG PO (16:04)
[2022-08-18] MEDS: MELATONIN 5 MG TABLET 10 MG PO (20:06)
[2022-08-18] MEDS: ATORVASTATIN CALCIUM 20 MG TABLET PO (20:06)
[2022-08-18] MEDS: PRAMIPEXOLE 0.25 MG TABLET PO (20:06)
[2022-08-18 21:42] VITALS: TEMP 37.2; O2SAT 99
[2022-08-18 21:44] VITALS: BP 114/57; PULSE 68; RESP 18; TEMP 37.2; O2SAT 99
[2022-08-19 01:19] VITALS: TEMP 36.8; O2SAT 99
[2022-08-19] MEDS: ASPIRIN 81 MG TAB.CHEW PO (07:22)
[2022-08-19] MEDS: BACITRACIN OINTMENT BULK TUBE 1 APPLIC TOPICAL ×2 (07:22→19:18)
[2022-08-19] MEDS: allopurinoL 100 MG TABLET PO (07:22)
[2022-08-19 07:23] VITALS: PULSE 64
[2022-08-19] MEDS: DIGOXIN 125 MCG TABLET 62.5 MCG PO (07:23)
[2022-08-19] MEDS: FUROSEMIDE 20 MG TABLET 80 MG PO (07:23)
[2022-08-19] MEDS: CYANOCOBALAMIN (VITAMIN B-12) 500 MCG TABLET PO (07:23)
[2022-08-19] MEDS: METOPROLOL SUCCINATE (XL) 50 MG TAB PO (07:24)
[2022-08-19] MEDS: METFORMIN ER 500 MG 1000 MG PO ×2 (07:24→15:42)
[2022-08-19] MEDS: LOPERAMIDE HCL 2 MG CAPSULE 4 MG PO (07:24)
[2022-08-19] MEDS: lisinopriL 2.5 MG TABLET PO (07:24)
[2022-08-19] MEDS: MULTIVITAMIN/MINERALS 1 TABLET 1 TAB PO (07:25)
[2022-08-19] MEDS: SPIRONOLACTONE 25 MG TABLET 12.5 MG PO (07:25)
[2022-08-19 12:38] VITALS: TEMP 36.2; O2SAT 98
[2022-08-19] MEDS: WARFARIN 2 MG TABLET 4 MG PO (15:42)
[2022-08-19] MEDS: MELATONIN 5 MG TABLET 10 MG PO (19:18)
[2022-08-19] MEDS: ATORVASTATIN CALCIUM 20 MG TABLET PO (19:18)
[2022-08-19] MEDS: PRAMIPEXOLE 0.25 MG TABLET PO (19:19)
[2022-08-19 21:14] VITALS: TEMP 36.6; O2SAT 99
[2022-08-19 23:00] VITALS: TEMP 37.1; O2SAT 99
[2022-08-20 08:14] VITALS: PULSE 69
[2022-08-20] MEDS: ASPIRIN 81 MG TAB.CHEW PO (08:14)
[2022-08-20] MEDS: MULTIVITAMIN/MINERALS 1 TABLET 1 TAB PO (08:14)
[2022-08-20] MEDS: METFORMIN ER 500 MG 1000 MG PO ×2 (08:14→15:55)
[2022-08-20] MEDS: METOPROLOL SUCCINATE (XL) 50 MG TAB PO (08:14)
[2022-08-20] MEDS: FUROSEMIDE 20 MG TABLET 80 MG PO (08:14)
[2022-08-20] MEDS: lisinopriL 2.5 MG TABLET PO (08:14)
[2022-08-20] MEDS: CYANOCOBALAMIN (VITAMIN B-12) 500 MCG TABLET PO (08:14)
[2022-08-20] MEDS: allopurinoL 100 MG TABLET PO (08:14)
[2022-08-20] MEDS: SPIRONOLACTONE 25 MG TABLET 12.5 MG PO (08:14)
[2022-08-20] MEDS: DIGOXIN 125 MCG TABLET 62.5 MCG PO (08:14)
[2022-08-20] MEDS: LOPERAMIDE HCL 2 MG CAPSULE 4 MG PO (08:14)
[2022-08-20] MEDS: BACITRACIN OINTMENT BULK TUBE 1 APPLIC TOPICAL ×2 (08:14→19:37)
[2022-08-20 10:45] VITALS: TEMP 36.6; O2SAT 98
--- NOTE | 2022-08-20 12:14 | PC.NURSE ---
Skin: Scab on (R) & (L) 3rd toe resolved, open to air.
--- NOTE | 2022-08-20 13:48 | PC.NURSE ---
COVID OUTBREAK TESTING: Resident provided verbal consent for outbreak COVID testing. Resident is currently asymptomatic. Resident/family will be notified only if resident is positive.
[2022-08-20 15:00] VITALS: TEMP 36.6; O2SAT 100
[2022-08-20] MEDS: WARFARIN 3 MG TABLET PO (15:53)
[2022-08-20 16:11] LABS: SARS PCR* Negative SARS-CoV-2 (Negative)
[2022-08-20] MEDS: PRAMIPEXOLE 0.25 MG TABLET PO (19:37)
[2022-08-20] MEDS: ATORVASTATIN CALCIUM 20 MG TABLET PO (19:37)
[2022-08-20] MEDS: MELATONIN 5 MG TABLET 10 MG PO (19:37)
[2022-08-21] VITALS: TEMP 36.6; O2SAT 100
[2022-08-21] MEDS: BACITRACIN OINTMENT BULK TUBE 1 APPLIC TOPICAL ×2 (07:40→20:09)
[2022-08-21] MEDS: allopurinoL 100 MG TABLET PO (07:40)
[2022-08-21] MEDS: ASPIRIN 81 MG TAB.CHEW PO (07:40)
[2022-08-21] MEDS: FUROSEMIDE 20 MG TABLET 80 MG PO (07:41)
[2022-08-21] MEDS: lisinopriL 2.5 MG TABLET PO (07:41)
[2022-08-21] MEDS: CYANOCOBALAMIN (VITAMIN B-12) 500 MCG TABLET PO (07:41)
[2022-08-21] MEDS: LOPERAMIDE HCL 2 MG CAPSULE 4 MG PO (07:41)
[2022-08-21] MEDS: SPIRONOLACTONE 25 MG TABLET 12.5 MG PO (07:42)
[2022-08-21] MEDS: METFORMIN ER 500 MG 1000 MG PO ×2 (07:42→16:42)
[2022-08-21] MEDS: MULTIVITAMIN/MINERALS 1 TABLET 1 TAB PO (07:42)
[2022-08-21] MEDS: METOPROLOL SUCCINATE (XL) 50 MG TAB PO (07:42)
[2022-08-21 07:57] VITALS: PULSE 78
[2022-08-21] MEDS: DIGOXIN 125 MCG TABLET 62.5 MCG PO (07:57)
[2022-08-21 10:52] VITALS: TEMP 36.7; O2SAT 97
[2022-08-21] MEDS: WARFARIN 2 MG TABLET 4 MG PO (16:42)
[2022-08-21] MEDS: ATORVASTATIN CALCIUM 20 MG TABLET PO (20:09)
[2022-08-21] MEDS: PRAMIPEXOLE 0.25 MG TABLET PO (20:10)
[2022-08-21] MEDS: MELATONIN 5 MG TABLET 10 MG PO (20:10)
[2022-08-21 21:26] VITALS: TEMP 36.8; O2SAT 99
[2022-08-22 01:29] VITALS: TEMP 36.8; O2SAT 98
[2022-08-22] MEDS: CYANOCOBALAMIN (VITAMIN B-12) 500 MCG TABLET PO (07:33)
[2022-08-22] MEDS: BACITRACIN OINTMENT BULK TUBE 1 APPLIC TOPICAL ×2 (07:33→19:33)
[2022-08-22] MEDS: allopurinoL 100 MG TABLET PO (07:33)
[2022-08-22] MEDS: ASPIRIN 81 MG TAB.CHEW PO (07:33)
[2022-08-22] MEDS: lisinopriL 2.5 MG TABLET PO (07:34)
[2022-08-22] MEDS: FUROSEMIDE 20 MG TABLET 80 MG PO (07:34)
[2022-08-22] MEDS: LOPERAMIDE HCL 2 MG CAPSULE 4 MG PO (07:34)
[2022-08-22] MEDS: METFORMIN ER 500 MG 1000 MG PO ×2 (07:34→16:22)
[2022-08-22] MEDS: DIGOXIN 125 MCG TABLET 62.5 MCG PO (07:34)
[2022-08-22] MEDS: SPIRONOLACTONE 25 MG TABLET 12.5 MG PO (07:35)
[2022-08-22] MEDS: MULTIVITAMIN/MINERALS 1 TABLET 1 TAB PO (07:35)
[2022-08-22] MEDS: METOPROLOL SUCCINATE (XL) 50 MG TAB PO (07:35)
[2022-08-22 07:59] LABS: INR 2.13 (0.91-1.10); Prothrombin Time 24.2 Seconds
[2022-08-22 11:01] VITALS: TEMP 36.7; O2SAT 97
--- NOTE | 2022-08-22 11:47 | PC.NURSE ---
INR: Result reviewed by [facility] Coumadin Nurse, Zahraa. Order: Continue Coumadin 3mg MoFr, 4mg all other days. INR 09/12/22.
--- NOTE | 2022-08-22 13:49 | PC.PHA ---
Pharmacy Review~ Patient doing well on current medication regimen, metformin noted and renal function sufficient for safe use. Warfarin also continues and dosed per INR results. No pain med orders currently. Renal Dosing for Oseltamivir: Treatment:30 mg po BID for 5 days Prophylaxis:30 mg po daily for 14 days or longer (see policy).
[2022-08-22] MEDS: ATORVASTATIN CALCIUM 20 MG TABLET PO (19:33)
[2022-08-22] MEDS: MELATONIN 5 MG TABLET 10 MG PO (19:33)
[2022-08-22] MEDS: PRAMIPEXOLE 0.25 MG TABLET PO (19:33)
[2022-08-22] MEDS: WARFARIN 2 MG TABLET 4 MG PO (19:34)
--- NOTE | 2022-08-23 02:37 | PC.NURSE ---
Week #3: Resident has no new skin issues at this time. Temporary care plan reviewed, no change. Care plan 30-39 reviewed, no change. Resident is continent of bowels and has a Porter catheter. Will call when needing assistance to go to restroom.
--- NOTE | 2022-08-23 07:05 | PC.NURSE ---
Week #3: Care plan problems 30-39 and temporary care plan reviewed. No changes made. Nothing added to temporary care plan. Has an indwelling catheter, bag emptied q shift by staff. Porter catheter changed monthly & PRN. Catheter irrigation PRN also done. Is continent of bowels. Needs one assist with toileting for bowels. Wears pull ups. Pads, bolivar cares, clothing adjustment managed by staff. Skin: No issues at this time. Skin is checked during cares and on bath day.
[2022-08-23] MEDS: BACITRACIN OINTMENT BULK TUBE 1 APPLIC TOPICAL ×2 (07:35→19:53)
[2022-08-23] MEDS: CYANOCOBALAMIN (VITAMIN B-12) 500 MCG TABLET PO (07:35)
[2022-08-23] MEDS: allopurinoL 100 MG TABLET PO (07:35)
[2022-08-23] MEDS: ASPIRIN 81 MG TAB.CHEW PO (07:35)
[2022-08-23 07:37] VITALS: PULSE 62
[2022-08-23] MEDS: DIGOXIN 125 MCG TABLET 62.5 MCG PO (07:37)
[2022-08-23] MEDS: MULTIVITAMIN/MINERALS 1 TABLET 1 TAB PO (07:38)
[2022-08-23] MEDS: LOPERAMIDE HCL 2 MG CAPSULE 4 MG PO (07:38)
[2022-08-23] MEDS: lisinopriL 2.5 MG TABLET PO (07:38)
[2022-08-23] MEDS: SPIRONOLACTONE 25 MG TABLET 12.5 MG PO (07:38)
[2022-08-23] MEDS: METFORMIN ER 500 MG 1000 MG PO ×2 (07:38→15:58)
[2022-08-23] MEDS: METOPROLOL SUCCINATE (XL) 50 MG TAB PO (07:38)
[2022-08-23] MEDS: FUROSEMIDE 20 MG TABLET 80 MG PO (07:38)
[2022-08-23] MEDS: WARFARIN SODIUM 4 MG TABLET PO (16:00)
[2022-08-23] MEDS: PRAMIPEXOLE 0.25 MG TABLET PO (19:53)
[2022-08-23] MEDS: MELATONIN 5 MG TABLET 10 MG PO (19:53)
[2022-08-23] MEDS: ATORVASTATIN CALCIUM 20 MG TABLET PO (19:53)
[2022-08-24 07:36] VITALS: PULSE 60
[2022-08-24] MEDS: allopurinoL 100 MG TABLET PO (07:36)
[2022-08-24] MEDS: ASPIRIN 81 MG TAB.CHEW PO (07:36)
[2022-08-24] MEDS: BACITRACIN OINTMENT BULK TUBE 1 APPLIC TOPICAL ×2 (07:36→19:56)
[2022-08-24] MEDS: DIGOXIN 125 MCG TABLET 62.5 MCG PO (07:36)
[2022-08-24] MEDS: CYANOCOBALAMIN (VITAMIN B-12) 500 MCG TABLET PO (07:36)
[2022-08-24] MEDS: FUROSEMIDE 20 MG TABLET 80 MG PO (07:37)
[2022-08-24] MEDS: METOPROLOL SUCCINATE (XL) 50 MG TAB PO (07:37)
[2022-08-24] MEDS: lisinopriL 2.5 MG TABLET PO (07:37)
[2022-08-24] MEDS: LOPERAMIDE HCL 2 MG CAPSULE 4 MG PO (07:37)
[2022-08-24] MEDS: SPIRONOLACTONE 25 MG TABLET 12.5 MG PO (07:37)
[2022-08-24] MEDS: MULTIVITAMIN/MINERALS 1 TABLET 1 TAB PO (07:37)
[2022-08-24] MEDS: METFORMIN ER 500 MG 1000 MG PO ×2 (07:37→15:33)
[2022-08-24 08:20] LABS: Creatinine* 1.6 mg/dL (0.5-1.5); Est. Creatinine Clearance* 33.25; Estimated Glomerular Filt Rate 42 ml/min
[2022-08-24 08:24] LABS: Hemoglobin A1C* 8.28 % (0-5.6)
--- NOTE | 2022-08-24 13:22 | PC.NURSE ---
Lab: HgbAIC, Creatinine results reviewed by Dr. Jasmine. No new order.
[2022-08-24] MEDS: WARFARIN 3 MG TABLET PO (15:33)
[2022-08-24] MEDS: ATORVASTATIN CALCIUM 20 MG TABLET PO (19:57)
[2022-08-24] MEDS: MELATONIN 5 MG TABLET 10 MG PO (19:57)
[2022-08-24] MEDS: PRAMIPEXOLE 0.25 MG TABLET PO (19:57)
[2022-08-25] MEDS: ASPIRIN 81 MG TAB.CHEW PO (07:29)
[2022-08-25] MEDS: BACITRACIN OINTMENT BULK TUBE 1 APPLIC TOPICAL ×2 (07:29→19:46)
[2022-08-25] MEDS: allopurinoL 100 MG TABLET PO (07:29)
[2022-08-25] MEDS: CYANOCOBALAMIN (VITAMIN B-12) 500 MCG TABLET PO (07:29)
[2022-08-25] MEDS: FUROSEMIDE 20 MG TABLET 80 MG PO (07:33)
[2022-08-25] MEDS: SPIRONOLACTONE 25 MG TABLET 12.5 MG PO (07:33)
[2022-08-25] MEDS: METOPROLOL SUCCINATE (XL) 50 MG TAB PO (07:33)
[2022-08-25] MEDS: METFORMIN ER 500 MG 1000 MG PO ×2 (07:33→16:07)
[2022-08-25] MEDS: LOPERAMIDE HCL 2 MG CAPSULE 4 MG PO (07:33)
[2022-08-25] MEDS: lisinopriL 2.5 MG TABLET PO (07:33)
[2022-08-25] MEDS: MULTIVITAMIN/MINERALS 1 TABLET 1 TAB PO (07:33)
[2022-08-25 07:41] VITALS: PULSE 65
[2022-08-25] MEDS: DIGOXIN 125 MCG TABLET 62.5 MCG PO (07:41)
[2022-08-25] MEDS: WARFARIN SODIUM 4 MG TABLET PO (16:07)
[2022-08-25 17:06] VITALS: BP 115/54; PULSE 85; RESP 18; TEMP 36.9; O2SAT 97
[2022-08-25] MEDS: ATORVASTATIN CALCIUM 20 MG TABLET PO (19:46)
[2022-08-25] MEDS: PRAMIPEXOLE 0.25 MG TABLET PO (19:47)
[2022-08-25] MEDS: MELATONIN 5 MG TABLET 10 MG PO (19:47)
[2022-08-26 07:21] VITALS: PULSE 64
[2022-08-26] MEDS: SPIRONOLACTONE 25 MG TABLET 12.5 MG PO (07:21)
[2022-08-26] MEDS: DIGOXIN 125 MCG TABLET 62.5 MCG PO (07:21)
[2022-08-26] MEDS: MULTIVITAMIN/MINERALS 1 TABLET 1 TAB PO (07:21)
[2022-08-26] MEDS: CYANOCOBALAMIN (VITAMIN B-12) 500 MCG TABLET PO (07:21)
[2022-08-26] MEDS: LOPERAMIDE HCL 2 MG CAPSULE 4 MG PO (07:21)
[2022-08-26] MEDS: METFORMIN ER 500 MG 1000 MG PO ×2 (07:21→16:02)
[2022-08-26] MEDS: BACITRACIN OINTMENT BULK TUBE 1 APPLIC TOPICAL ×2 (07:21→19:35)
[2022-08-26] MEDS: FUROSEMIDE 20 MG TABLET 80 MG PO (07:21)
[2022-08-26] MEDS: ASPIRIN 81 MG TAB.CHEW PO (07:21)
[2022-08-26] MEDS: lisinopriL 2.5 MG TABLET PO (07:21)
[2022-08-26] MEDS: allopurinoL 100 MG TABLET PO (07:21)
[2022-08-26] MEDS: METOPROLOL SUCCINATE (XL) 50 MG TAB PO (07:21)
[2022-08-26] MEDS: WARFARIN SODIUM 4 MG TABLET PO (16:02)
[2022-08-26] MEDS: ATORVASTATIN CALCIUM 20 MG TABLET PO (19:36)
[2022-08-26] MEDS: PRAMIPEXOLE 0.25 MG TABLET PO (19:36)
[2022-08-26] MEDS: MELATONIN 5 MG TABLET 10 MG PO (19:36)
[2022-08-27] MEDS: BACITRACIN OINTMENT BULK TUBE 1 APPLIC TOPICAL ×2 (08:11→19:51)
[2022-08-27] MEDS: CYANOCOBALAMIN (VITAMIN B-12) 500 MCG TABLET PO (08:11)
[2022-08-27] MEDS: ASPIRIN 81 MG TAB.CHEW PO (08:11)
[2022-08-27] MEDS: allopurinoL 100 MG TABLET PO (08:11)
[2022-08-27] MEDS: SPIRONOLACTONE 25 MG TABLET 12.5 MG PO (08:12)
[2022-08-27] MEDS: MULTIVITAMIN/MINERALS 1 TABLET 1 TAB PO (08:12)
[2022-08-27] MEDS: LOPERAMIDE HCL 2 MG CAPSULE 4 MG PO (08:12)
[2022-08-27] MEDS: METOPROLOL SUCCINATE (XL) 50 MG TAB PO (08:12)
[2022-08-27] MEDS: FUROSEMIDE 20 MG TABLET 80 MG PO (08:12)
[2022-08-27] MEDS: METFORMIN ER 500 MG 1000 MG PO ×2 (08:12→15:55)
[2022-08-27] MEDS: lisinopriL 2.5 MG TABLET PO (08:12)
[2022-08-27] MEDS: DIGOXIN 125 MCG TABLET 62.5 MCG PO (08:52)
[2022-08-27] MEDS: WARFARIN 3 MG TABLET PO (15:55)
[2022-08-27] MEDS: MELATONIN 5 MG TABLET 10 MG PO (19:51)
[2022-08-27] MEDS: ATORVASTATIN CALCIUM 20 MG TABLET PO (19:51)
[2022-08-27] MEDS: PRAMIPEXOLE 0.25 MG TABLET PO (19:51)
[2022-08-28] MEDS: allopurinoL 100 MG TABLET PO (07:13)
[2022-08-28] MEDS: METFORMIN ER 500 MG 1000 MG PO ×2 (07:13→16:13)
[2022-08-28] MEDS: FUROSEMIDE 20 MG TABLET 80 MG PO (07:13)
[2022-08-28] MEDS: CYANOCOBALAMIN (VITAMIN B-12) 500 MCG TABLET PO (07:13)
[2022-08-28] MEDS: BACITRACIN OINTMENT BULK TUBE 1 APPLIC TOPICAL ×2 (07:13→19:42)
[2022-08-28] MEDS: ASPIRIN 81 MG TAB.CHEW PO (07:13)
[2022-08-28] MEDS: lisinopriL 2.5 MG TABLET PO (07:13)
[2022-08-28] MEDS: LOPERAMIDE HCL 2 MG CAPSULE 4 MG PO (07:13)
[2022-08-28] MEDS: DIGOXIN 125 MCG TABLET 62.5 MCG PO (07:13)
[2022-08-28] MEDS: METOPROLOL SUCCINATE (XL) 50 MG TAB PO (07:14)
[2022-08-28] MEDS: SPIRONOLACTONE 25 MG TABLET 12.5 MG PO (07:14)
[2022-08-28] MEDS: MULTIVITAMIN/MINERALS 1 TABLET 1 TAB PO (07:14)
--- NOTE | 2022-08-28 12:24 | REH.OT ---
Due to cognitive and physical deficits, resident needs adaptive cup at the table for hot liquids.
[2022-08-28] MEDS: WARFARIN SODIUM 4 MG TABLET PO (16:13)
[2022-08-28] MEDS: PRAMIPEXOLE 0.25 MG TABLET PO (19:42)
[2022-08-28] MEDS: MELATONIN 5 MG TABLET 10 MG PO (19:42)
[2022-08-28] MEDS: ATORVASTATIN CALCIUM 20 MG TABLET PO (19:42)
[2022-08-29] MEDS: lisinopriL 2.5 MG TABLET PO (07:03)
[2022-08-29] MEDS: ASPIRIN 81 MG TAB.CHEW PO (07:03)
[2022-08-29] MEDS: allopurinoL 100 MG TABLET PO (07:03)
[2022-08-29] MEDS: LOPERAMIDE HCL 2 MG CAPSULE 4 MG PO (07:03)
[2022-08-29] MEDS: FUROSEMIDE 20 MG TABLET 80 MG PO (07:03)
[2022-08-29] MEDS: CYANOCOBALAMIN (VITAMIN B-12) 500 MCG TABLET PO (07:03)
[2022-08-29] MEDS: SPIRONOLACTONE 25 MG TABLET 12.5 MG PO (07:04)
[2022-08-29] MEDS: MULTIVITAMIN/MINERALS 1 TABLET 1 TAB PO (07:04)
[2022-08-29] MEDS: METOPROLOL SUCCINATE (XL) 50 MG TAB PO (07:04)
[2022-08-29] MEDS: METFORMIN ER 500 MG 1000 MG PO ×2 (07:04→15:39)
[2022-08-29] MEDS: BACITRACIN OINTMENT BULK TUBE 1 APPLIC TOPICAL ×2 (07:07→19:41)
[2022-08-29 07:14] VITALS: PULSE 74
[2022-08-29] MEDS: DIGOXIN 125 MCG TABLET 62.5 MCG PO (07:14)
--- NOTE | 2022-08-29 12:00 | PC.NURSE ---
HEEL PROTECTORS: Resident has consistently refused to use heel protectors at [facility] per staff report. Boots increase fall risk due to self-transferring. Discontinued intervention.
[2022-08-29] MEDS: WARFARIN SODIUM 4 MG TABLET PO (15:39)
[2022-08-29 15:59] VITALS: BMI 22.6
[2022-08-29] MEDS: ATORVASTATIN CALCIUM 20 MG TABLET PO (19:41)
[2022-08-29] MEDS: MELATONIN 5 MG TABLET 10 MG PO (19:41)
[2022-08-29] MEDS: PRAMIPEXOLE 0.25 MG TABLET PO (19:41)
--- NOTE | 2022-08-30 02:19 | PC.NURSE ---
Week #4: No change in mood/behavior. Receives melatonin 10mg at HS with no adverse effects. Temporary care plan and care plan problems 40-119 reviewed with no changes made. Communication, hearing, vision, and orientation are unchanged. Able to voice needs. Moderate hearing impairment. Wears hearing aids. Visual impairment is corrected with glasses. Has forgetfulness and intermittent confusion. No change to chronic health conditions. No medication changes in last month. Medications are administered by licensed nurse. Sleeps well through the night with no behavioral concerns.
[2022-08-30 07:02] VITALS: PULSE 65
[2022-08-30] MEDS: ASPIRIN 81 MG TAB.CHEW PO (07:02)
[2022-08-30] MEDS: CYANOCOBALAMIN (VITAMIN B-12) 500 MCG TABLET PO (07:02)
[2022-08-30] MEDS: allopurinoL 100 MG TABLET PO (07:02)
[2022-08-30] MEDS: DIGOXIN 125 MCG TABLET 62.5 MCG PO (07:02)
[2022-08-30] MEDS: BACITRACIN OINTMENT BULK TUBE 1 APPLIC TOPICAL ×2 (07:03→20:01)
[2022-08-30] MEDS: METOPROLOL SUCCINATE (XL) 50 MG TAB PO (07:03)
[2022-08-30] MEDS: FUROSEMIDE 20 MG TABLET 80 MG PO (07:03)
[2022-08-30] MEDS: MULTIVITAMIN/MINERALS 1 TABLET 1 TAB PO (07:03)
[2022-08-30] MEDS: LOPERAMIDE HCL 2 MG CAPSULE 4 MG PO (07:03)
[2022-08-30] MEDS: METFORMIN ER 500 MG 1000 MG PO ×2 (07:03→16:16)
[2022-08-30] MEDS: lisinopriL 2.5 MG TABLET PO (07:03)
[2022-08-30] MEDS: SPIRONOLACTONE 25 MG TABLET 12.5 MG PO (07:04)
--- NOTE | 2022-08-30 07:59 | PC.NURSE ---
Week #4: Care plan problems 40-119 and temporary care plan reviewed. No changes made. Nothing added to temporary care plan. Resident does communicate needs. No changes in communication, hearing, vision, or orientation. Vision impaired, wears glasses. Has moderate hearing impairment, wears (L) hearing aid only at this time (R) H/A lost. Is usually oriented with some forgetfulness. Chronic health condition stable. Does not self administer medications. Mood/Behavior: No issues. Is on no psychotropic medications.
[2022-08-30] MEDS: WARFARIN SODIUM 4 MG TABLET PO (16:17)
[2022-08-30] MEDS: PRAMIPEXOLE 0.25 MG TABLET PO (20:01)
[2022-08-30] MEDS: MELATONIN 5 MG TABLET 10 MG PO (20:01)
[2022-08-30] MEDS: MINERAL OIL 0.5 ML EAR-BOTH (20:01)
[2022-08-30] MEDS: ATORVASTATIN CALCIUM 20 MG TABLET PO (20:01)
[2022-08-31 07:44] VITALS: PULSE 66
[2022-08-31] MEDS: lisinopriL 2.5 MG TABLET PO (07:44)
[2022-08-31] MEDS: FUROSEMIDE 20 MG TABLET 80 MG PO (07:44)
[2022-08-31] MEDS: ASPIRIN 81 MG TAB.CHEW PO (07:44)
[2022-08-31] MEDS: LOPERAMIDE HCL 2 MG CAPSULE 4 MG PO (07:44)
[2022-08-31] MEDS: METOPROLOL SUCCINATE (XL) 50 MG TAB PO (07:44)
[2022-08-31] MEDS: BACITRACIN OINTMENT BULK TUBE 1 APPLIC TOPICAL ×2 (07:44→19:59)
[2022-08-31] MEDS: allopurinoL 100 MG TABLET PO (07:44)
[2022-08-31] MEDS: CYANOCOBALAMIN (VITAMIN B-12) 500 MCG TABLET PO (07:44)
[2022-08-31] MEDS: DIGOXIN 125 MCG TABLET 62.5 MCG PO (07:44)
[2022-08-31] MEDS: MULTIVITAMIN/MINERALS 1 TABLET 1 TAB PO (07:45)
[2022-08-31] MEDS: SPIRONOLACTONE 25 MG TABLET 12.5 MG PO (07:45)
[2022-08-31] MEDS: METFORMIN ER 500 MG 1000 MG PO ×2 (08:17→15:30)
[2022-08-31] MEDS: WARFARIN 3 MG TABLET PO (15:30)
[2022-08-31] MEDS: MELATONIN 5 MG TABLET 10 MG PO (19:59)
[2022-08-31] MEDS: ATORVASTATIN CALCIUM 20 MG TABLET PO (19:59)
[2022-08-31] MEDS: PRAMIPEXOLE 0.25 MG TABLET PO (19:59)
[2022-09-01] MEDS: CYANOCOBALAMIN (VITAMIN B-12) 500 MCG TABLET PO (07:19)
[2022-09-01] MEDS: allopurinoL 100 MG TABLET PO (07:19)
[2022-09-01] MEDS: BACITRACIN OINTMENT BULK TUBE 1 APPLIC TOPICAL ×2 (07:19→20:06)
[2022-09-01] MEDS: ASPIRIN 81 MG TAB.CHEW PO (07:19)
[2022-09-01] MEDS: FUROSEMIDE 20 MG TABLET 80 MG PO (07:19)
[2022-09-01] MEDS: MULTIVITAMIN/MINERALS 1 TABLET 1 TAB PO (07:20)
[2022-09-01] MEDS: LOPERAMIDE HCL 2 MG CAPSULE 4 MG PO (07:20)
[2022-09-01] MEDS: METOPROLOL SUCCINATE (XL) 50 MG TAB PO (07:20)
[2022-09-01] MEDS: SPIRONOLACTONE 25 MG TABLET 12.5 MG PO (07:20)
[2022-09-01] MEDS: lisinopriL 2.5 MG TABLET PO (07:20)
[2022-09-01] MEDS: METFORMIN ER 500 MG 1000 MG PO ×2 (07:20→13:28)
[2022-09-01 07:22] VITALS: PULSE 68
[2022-09-01] MEDS: DIGOXIN 125 MCG TABLET 62.5 MCG PO (07:22)
--- NOTE | 2022-09-01 13:01 | PC.NURSE ---
Addendum entered by Jeanette Malcolm 09/01/22 20:47: Resident back at 1512. Original Note: Out for Lunch: Resident went out for lunch with granddaughter at 1300 hours in wheel chair. Meds due at 1600 hours ( Metformin and Warfarin) send with patient.
[2022-09-01] MEDS: WARFARIN SODIUM 4 MG TABLET PO (13:29)
[2022-09-01 15:00] VITALS: BMI 23.5
[2022-09-01] MEDS: PRAMIPEXOLE 0.25 MG TABLET PO (20:06)
[2022-09-01] MEDS: ATORVASTATIN CALCIUM 20 MG TABLET PO (20:06)
[2022-09-01] MEDS: MELATONIN 5 MG TABLET 10 MG PO (20:06)
[2022-09-02 07:22] VITALS: PULSE 68
[2022-09-02] MEDS: DIGOXIN 125 MCG TABLET 62.5 MCG PO (07:22)
[2022-09-02] MEDS: allopurinoL 100 MG TABLET PO (07:22)
[2022-09-02] MEDS: ASPIRIN 81 MG TAB.CHEW PO (07:22)
[2022-09-02] MEDS: BACITRACIN OINTMENT BULK TUBE 1 APPLIC TOPICAL ×2 (07:22→19:30)
[2022-09-02] MEDS: CYANOCOBALAMIN (VITAMIN B-12) 500 MCG TABLET PO (07:23)
[2022-09-02] MEDS: METFORMIN ER 500 MG 1000 MG PO ×2 (07:23→16:35)
[2022-09-02] MEDS: LOPERAMIDE HCL 2 MG CAPSULE 4 MG PO (07:23)
[2022-09-02] MEDS: lisinopriL 2.5 MG TABLET PO (07:23)
[2022-09-02] MEDS: FUROSEMIDE 20 MG TABLET 80 MG PO (07:23)
[2022-09-02] MEDS: SPIRONOLACTONE 25 MG TABLET 12.5 MG PO (07:24)
[2022-09-02] MEDS: METOPROLOL SUCCINATE (XL) 50 MG TAB PO (07:24)
[2022-09-02] MEDS: MULTIVITAMIN/MINERALS 1 TABLET 1 TAB PO (07:24)
[2022-09-02] MEDS: WARFARIN SODIUM 4 MG TABLET PO (16:35)
[2022-09-02 16:36] VITALS: BP 113/69; PULSE 60; RESP 18; TEMP 36.6; O2SAT 99
[2022-09-02] MEDS: ATORVASTATIN CALCIUM 20 MG TABLET PO (19:30)
[2022-09-02] MEDS: MELATONIN 5 MG TABLET 10 MG PO (19:30)
[2022-09-02] MEDS: PRAMIPEXOLE 0.25 MG TABLET PO (19:30)
[2022-09-03 07:19] VITALS: BMI 23.2
[2022-09-03] MEDS: allopurinoL 100 MG TABLET PO (07:33)
[2022-09-03] MEDS: ASPIRIN 81 MG TAB.CHEW PO (07:33)
[2022-09-03] MEDS: FUROSEMIDE 20 MG TABLET 80 MG PO (07:34)
[2022-09-03] MEDS: DIGOXIN 125 MCG TABLET 62.5 MCG PO (07:34)
[2022-09-03] MEDS: CYANOCOBALAMIN (VITAMIN B-12) 500 MCG TABLET PO (07:34)
[2022-09-03] MEDS: lisinopriL 2.5 MG TABLET PO (07:34)
[2022-09-03] MEDS: LOPERAMIDE HCL 2 MG CAPSULE 4 MG PO (07:35)
[2022-09-03] MEDS: METFORMIN ER 500 MG 1000 MG PO ×2 (07:35→15:35)
[2022-09-03] MEDS: MULTIVITAMIN/MINERALS 1 TABLET 1 TAB PO (07:35)
[2022-09-03] MEDS: METOPROLOL SUCCINATE (XL) 50 MG TAB PO (07:35)
[2022-09-03] MEDS: SPIRONOLACTONE 25 MG TABLET 12.5 MG PO (07:36)
[2022-09-03] MEDS: BACITRACIN OINTMENT BULK TUBE 1 APPLIC TOPICAL ×2 (08:30→19:32)
--- NOTE | 2022-09-03 09:42 | PC.NURSE ---
Wt - Pt wt 154lb 08/31, Pt wt 152lb 09/03. Pt diagnosis of CHF. Assess pt - HR:82, RR:16, T:97.2, O: 100. Lung sounds clear throughout (BUL, BLL, RML). Pt reports no dyspnea or SOB. Will continue to monitor.
[2022-09-03] MEDS: WARFARIN 3 MG TABLET PO (15:35)
[2022-09-03] MEDS: PRAMIPEXOLE 0.25 MG TABLET PO (19:32)
[2022-09-03] MEDS: ATORVASTATIN CALCIUM 20 MG TABLET PO (19:32)
[2022-09-03] MEDS: MELATONIN 5 MG TABLET 10 MG PO (19:32)
--- NOTE | 2022-09-03 21:17 | PC.NURSE ---
FYI: Not knowing his where about and not in his room approximately 1999, OFE found this resident in the bathroom getting himself ready for bed without assistance. Fortunately, OFE spotted resident's hearing aid in the toilet bowel before resident attempted to flush the waste content in the toilet unaware his hearing aid was displaced.
--- NOTE | 2022-09-03 21:32 | PC.NURSE ---
Family update on Hearing Aid: Via telephone call, resident's son, Dax Solis, has been notified and updated on his father probably needing new hearing aid due to it falling in the toilet. Son verbalized his appreciation for being notified, and emphasized getting his father a new pair.
[2022-09-04] MEDS: FUROSEMIDE 20 MG TABLET 80 MG PO (08:41)
[2022-09-04] MEDS: BACITRACIN OINTMENT BULK TUBE 1 APPLIC TOPICAL ×2 (08:41→20:02)
[2022-09-04] MEDS: CYANOCOBALAMIN (VITAMIN B-12) 500 MCG TABLET PO (08:41)
[2022-09-04] MEDS: DIGOXIN 125 MCG TABLET 62.5 MCG PO (08:41)
[2022-09-04] MEDS: allopurinoL 100 MG TABLET PO (08:41)
[2022-09-04] MEDS: ASPIRIN 81 MG TAB.CHEW PO (08:41)
[2022-09-04] MEDS: METOPROLOL SUCCINATE (XL) 50 MG TAB PO (08:42)
[2022-09-04] MEDS: METFORMIN ER 500 MG 1000 MG PO ×2 (08:42→16:19)
[2022-09-04] MEDS: LOPERAMIDE HCL 2 MG CAPSULE 4 MG PO (08:42)
[2022-09-04] MEDS: MULTIVITAMIN/MINERALS 1 TABLET 1 TAB PO (08:42)
[2022-09-04] MEDS: lisinopriL 2.5 MG TABLET PO (08:42)
[2022-09-04] MEDS: SPIRONOLACTONE 25 MG TABLET 12.5 MG PO (08:43)
--- NOTE | 2022-09-04 13:15 | PC.NURSE ---
CARE CONFERENCE: Resident present. Sons were not in attendance. Nursing, activities, dietary, and SW present. 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 His mood is stable. He loves spending time outside in the sun on the patio, although the warm season is coming to an end, and going to activities. He also notes that he loves the food--no dietary changes noted and resident weight is stable. Residents family brings in seasoning and hot sauce for him, which he really enjoys. Nursing discussed recent bouts of loose stools, resident states this has improved a lot. Nursing will continue to monitor. Resident requests that he would like to be walking more, will update nursing staff. Instructed resident to call and ask for staff to walk with him--he agrees to do this. No falls this quarter, resident bed and chair alarms were removed and he was placed on hourly safety checks. Residents R hearing aid was broken, and the L recently fell in the toilet and has been working intermittently--family is aware. Care plan reviewed and updated. POLST/Code status reviewed, remains full code. Uses no restraints. Does use 2 side rails up to assist with positioning. Vulnerability- is at risk for being harmed due to weakness and intermittent confusion. No plans for discharge at this time.
--- NOTE | 2022-09-04 15:22 | PC.SOCIAL ---
Resident care conference held today. There was no family present for conference. Updates from Gladys in Nursing, Becky in Life Enrichment, Carole in Nutrition, and this worker from Social Work. Met with resident recently and mood is stable with no concerns. Resident talked in detail about the genograms that he is currently working on in his room with his computer.
[2022-09-04] MEDS: WARFARIN SODIUM 4 MG TABLET PO (16:19)
[2022-09-04] MEDS: ATORVASTATIN CALCIUM 20 MG TABLET PO (20:02)
[2022-09-04] MEDS: MELATONIN 5 MG TABLET 10 MG PO (20:02)
[2022-09-04] MEDS: PRAMIPEXOLE 0.25 MG TABLET PO (20:02)
[2022-09-05] MEDS: FUROSEMIDE 20 MG TABLET 80 MG PO (07:56)
[2022-09-05] MEDS: allopurinoL 100 MG TABLET PO (07:56)
[2022-09-05] MEDS: BACITRACIN OINTMENT BULK TUBE 1 APPLIC TOPICAL ×2 (07:56→19:30)
[2022-09-05] MEDS: METFORMIN ER 500 MG 1000 MG PO ×2 (07:56→15:34)
[2022-09-05] MEDS: CYANOCOBALAMIN (VITAMIN B-12) 500 MCG TABLET PO (07:56)
[2022-09-05] MEDS: lisinopriL 2.5 MG TABLET PO (07:56)
[2022-09-05] MEDS: LOPERAMIDE HCL 2 MG CAPSULE 4 MG PO (07:56)
[2022-09-05] MEDS: ASPIRIN 81 MG TAB.CHEW PO (07:56)
[2022-09-05] MEDS: DIGOXIN 125 MCG TABLET 62.5 MCG PO (07:56)
[2022-09-05] MEDS: MULTIVITAMIN/MINERALS 1 TABLET 1 TAB PO (07:57)
[2022-09-05] MEDS: SPIRONOLACTONE 25 MG TABLET 12.5 MG PO (07:57)
[2022-09-05] MEDS: METOPROLOL SUCCINATE (XL) 50 MG TAB PO (07:57)
[2022-09-05] MEDS: WARFARIN SODIUM 4 MG TABLET PO (15:34)
[2022-09-05] MEDS: ATORVASTATIN CALCIUM 20 MG TABLET PO (19:30)
[2022-09-05] MEDS: MELATONIN 5 MG TABLET 10 MG PO (19:31)
[2022-09-05] MEDS: PRAMIPEXOLE 0.25 MG TABLET PO (19:31)
--- NOTE | 2022-09-06 02:30 | PC.NURSE ---
Week #1: No current pain management regimen. Denies pain when asked. Temporary care plan and care plan problems 1-19 reviewed with no changes. Assist of 1 with ADLs. Staff encourage resident participation and offer praise. Eats independently after setup. Uses adaptive silverware and cup.
[2022-09-06 07:17] VITALS: PULSE 68
[2022-09-06] MEDS: FUROSEMIDE 20 MG TABLET 80 MG PO (07:17)
[2022-09-06] MEDS: CYANOCOBALAMIN (VITAMIN B-12) 500 MCG TABLET PO (07:17)
[2022-09-06] MEDS: DIGOXIN 125 MCG TABLET 62.5 MCG PO (07:17)
[2022-09-06] MEDS: ASPIRIN 81 MG TAB.CHEW PO (07:17)
[2022-09-06] MEDS: allopurinoL 100 MG TABLET PO (07:17)
[2022-09-06] MEDS: BACITRACIN OINTMENT BULK TUBE 1 APPLIC TOPICAL ×2 (07:17→19:27)
[2022-09-06] MEDS: LOPERAMIDE HCL 2 MG CAPSULE 4 MG PO (07:18)
[2022-09-06] MEDS: METOPROLOL SUCCINATE (XL) 50 MG TAB PO (07:18)
[2022-09-06] MEDS: METFORMIN ER 500 MG 1000 MG PO ×2 (07:18→16:10)
[2022-09-06] MEDS: lisinopriL 2.5 MG TABLET PO (07:18)
[2022-09-06] MEDS: MULTIVITAMIN/MINERALS 1 TABLET 1 TAB PO (07:19)
[2022-09-06] MEDS: SPIRONOLACTONE 25 MG TABLET 12.5 MG PO (07:19)
--- NOTE | 2022-09-06 09:14 | PC.NURSE ---
Week #1: Care plan problems 1-19 and temporary care plan reviewed. No changes made. Nothing added to temporary care plan. Resident needs one assist with dressing, grooming and bathing. Is able to participate. Independent with oral cares & feeding. Is on 2 gram sodium & low fat diet. No problems reported with chewing or swallowing. Pain : No complain. Does not have a scheduled pain medication, Tylenol PSO is available if needed. He does communicate his needs.
[2022-09-06] MEDS: WARFARIN SODIUM 4 MG TABLET PO (16:10)
[2022-09-06] MEDS: ATORVASTATIN CALCIUM 20 MG TABLET PO (19:27)
[2022-09-06] MEDS: PRAMIPEXOLE 0.25 MG TABLET PO (19:27)
[2022-09-06] MEDS: MELATONIN 5 MG TABLET 10 MG PO (19:27)
[2022-09-07 07:46] VITALS: PULSE 78
[2022-09-07] MEDS: allopurinoL 100 MG TABLET PO (07:46)
[2022-09-07] MEDS: CYANOCOBALAMIN (VITAMIN B-12) 500 MCG TABLET PO (07:46)
[2022-09-07] MEDS: DIGOXIN 125 MCG TABLET 62.5 MCG PO (07:46)
[2022-09-07] MEDS: METOPROLOL SUCCINATE (XL) 50 MG TAB PO (07:46)
[2022-09-07] MEDS: lisinopriL 2.5 MG TABLET PO (07:46)
[2022-09-07] MEDS: METFORMIN ER 500 MG 1000 MG PO ×2 (07:46→16:13)
[2022-09-07] MEDS: FUROSEMIDE 20 MG TABLET 80 MG PO (07:46)
[2022-09-07] MEDS: MULTIVITAMIN/MINERALS 1 TABLET 1 TAB PO (07:46)
[2022-09-07] MEDS: LOPERAMIDE HCL 2 MG CAPSULE 4 MG PO (07:46)
[2022-09-07] MEDS: BACITRACIN OINTMENT BULK TUBE 1 APPLIC TOPICAL ×2 (07:46→19:46)
[2022-09-07] MEDS: ASPIRIN 81 MG TAB.CHEW PO (07:46)
[2022-09-07] MEDS: SPIRONOLACTONE 25 MG TABLET 12.5 MG PO (07:47)
[2022-09-07] MEDS: WARFARIN 3 MG TABLET PO (16:13)
--- NOTE | 2022-09-07 16:21 | PC.NURSE ---
MDS: Reviewed ADL documentation in the 7 day look-back for the MDS with an ASHLEY of 08/30/22. Resident was documented to have received limited assistance with toileting. Resident has catheter that staff empty q shift and as needed. Spoke with staff, this was documented in error. Coded as extensive on MDS. Resident ambulated once-twice in room with extensive assist and one person. Coded on MDS. Other areas of ADLS reviewed with staff and documented appropriately on MDS.
[2022-09-07] MEDS: ATORVASTATIN CALCIUM 20 MG TABLET PO (19:46)
[2022-09-07] MEDS: PRAMIPEXOLE 0.25 MG TABLET PO (19:46)
[2022-09-07] MEDS: MELATONIN 5 MG TABLET 10 MG PO (19:46)
[2022-09-08] MEDS: ASPIRIN 81 MG TAB.CHEW PO (07:37)
[2022-09-08] MEDS: BACITRACIN OINTMENT BULK TUBE 1 APPLIC TOPICAL ×2 (07:37→20:03)
[2022-09-08] MEDS: allopurinoL 100 MG TABLET PO (07:37)
[2022-09-08] MEDS: CYANOCOBALAMIN (VITAMIN B-12) 500 MCG TABLET PO (07:37)
[2022-09-08] MEDS: METFORMIN ER 500 MG 1000 MG PO ×2 (07:38→16:02)
[2022-09-08] MEDS: LOPERAMIDE HCL 2 MG CAPSULE 4 MG PO (07:38)
[2022-09-08] MEDS: DIGOXIN 125 MCG TABLET 62.5 MCG PO (07:38)
[2022-09-08] MEDS: lisinopriL 2.5 MG TABLET PO (07:38)
[2022-09-08] MEDS: FUROSEMIDE 20 MG TABLET 80 MG PO (07:38)
[2022-09-08] MEDS: SPIRONOLACTONE 25 MG TABLET 12.5 MG PO (07:39)
[2022-09-08] MEDS: MULTIVITAMIN/MINERALS 1 TABLET 1 TAB PO (07:39)
[2022-09-08] MEDS: METOPROLOL SUCCINATE (XL) 50 MG TAB PO (07:39)
--- NOTE | 2022-09-08 13:52 | PC.NURSE ---
Lesly THAKUR charted all interventions for shift - Expanse system is not working correctly - Expanse worklists show interventions have not been done, when Lesly has done them and charted on them as well.
[2022-09-08 15:00] VITALS: BP 121/65; PULSE 81; RESP 16; TEMP 36.5; O2SAT 97; BMI 23.0
[2022-09-08] MEDS: WARFARIN SODIUM 4 MG TABLET PO (16:02)
[2022-09-08] MEDS: PRAMIPEXOLE 0.25 MG TABLET PO (20:03)
[2022-09-08] MEDS: MELATONIN 5 MG TABLET 10 MG PO (20:03)
[2022-09-08] MEDS: ATORVASTATIN CALCIUM 20 MG TABLET PO (20:03)
[2022-09-09] MEDS: ASPIRIN 81 MG TAB.CHEW PO (08:22)
[2022-09-09] MEDS: DIGOXIN 125 MCG TABLET 62.5 MCG PO (08:22)
[2022-09-09] MEDS: CYANOCOBALAMIN (VITAMIN B-12) 500 MCG TABLET PO (08:22)
[2022-09-09] MEDS: BACITRACIN OINTMENT BULK TUBE 1 APPLIC TOPICAL ×2 (08:22→19:30)
[2022-09-09] MEDS: allopurinoL 100 MG TABLET PO (08:22)
[2022-09-09] MEDS: FUROSEMIDE 20 MG TABLET 80 MG PO (08:23)
[2022-09-09] MEDS: lisinopriL 2.5 MG TABLET PO (08:23)
[2022-09-09] MEDS: METFORMIN ER 500 MG 1000 MG PO ×2 (08:23→16:32)
[2022-09-09] MEDS: LOPERAMIDE HCL 2 MG CAPSULE 4 MG PO (08:23)
[2022-09-09] MEDS: METOPROLOL SUCCINATE (XL) 50 MG TAB PO (08:23)
[2022-09-09] MEDS: MULTIVITAMIN/MINERALS 1 TABLET 1 TAB PO (08:23)
[2022-09-09] MEDS: SPIRONOLACTONE 25 MG TABLET 12.5 MG PO (08:24)
[2022-09-09] MEDS: WARFARIN SODIUM 4 MG TABLET PO (16:32)
[2022-09-09] MEDS: PRAMIPEXOLE 0.25 MG TABLET PO (19:30)
[2022-09-09] MEDS: MELATONIN 5 MG TABLET 10 MG PO (19:30)
[2022-09-09] MEDS: ATORVASTATIN CALCIUM 20 MG TABLET PO (19:30)
--- NOTE | 2022-09-09 21:12 | PC.NURSE ---
Catheter: Resident was bleeding from catheter site, stated his leg strap was not holding catheter in place causing it to tug. Leg strap replaced. Area cleansed and bacitracin applied. Bleeding appears to have stopped.
[2022-09-10] MEDS: allopurinoL 100 MG TABLET PO (07:56)
[2022-09-10] MEDS: BACITRACIN OINTMENT BULK TUBE 1 APPLIC TOPICAL ×2 (07:56→19:25)
[2022-09-10] MEDS: lisinopriL 2.5 MG TABLET PO (07:56)
[2022-09-10] MEDS: ASPIRIN 81 MG TAB.CHEW PO (07:56)
[2022-09-10] MEDS: FUROSEMIDE 20 MG TABLET 80 MG PO (07:56)
[2022-09-10] MEDS: CYANOCOBALAMIN (VITAMIN B-12) 500 MCG TABLET PO (07:56)
[2022-09-10] MEDS: DIGOXIN 125 MCG TABLET 62.5 MCG PO (07:56)
[2022-09-10] MEDS: MULTIVITAMIN/MINERALS 1 TABLET 1 TAB PO (07:57)
[2022-09-10] MEDS: SPIRONOLACTONE 25 MG TABLET 12.5 MG PO (07:57)
[2022-09-10] MEDS: METOPROLOL SUCCINATE (XL) 50 MG TAB PO (07:57)
[2022-09-10] MEDS: LOPERAMIDE HCL 2 MG CAPSULE 4 MG PO (07:57)
[2022-09-10] MEDS: METFORMIN ER 500 MG 1000 MG PO ×2 (07:57→16:11)
--- NOTE | 2022-09-10 14:28 | NUTR.NU ---
RDN visited with resident regarding current diet of 2 gm - low Sodium and report of resident not liking low sodium guevara. Resident reports he has not been enjoying the guevara he has been receiving - this guevara is in compliance with his diet of low sodium. Resident mentioned he would like the other guevara which is served to residents with Regular diets. Resident also uses spices (such as Sriracha) which are not in compliance with his current diet. He mentioned that he would like to enjoy my food. Resident was interested in trying a Regular diet. RDN wrote diet change request in [employer]AIL [employer]AK[employer] MANAGER book. RDN will continue to monitor weights monthly and follow-up prn.
[2022-09-10] MEDS: WARFARIN 3 MG TABLET PO (16:11)
[2022-09-10] MEDS: ATORVASTATIN CALCIUM 20 MG TABLET PO (19:25)
[2022-09-10] MEDS: PRAMIPEXOLE 0.25 MG TABLET PO (19:25)
[2022-09-10] MEDS: MELATONIN 5 MG TABLET 10 MG PO (19:25)
[2022-09-11] MEDS: DIGOXIN 125 MCG TABLET 62.5 MCG PO (08:15)
[2022-09-11] MEDS: METFORMIN ER 500 MG 1000 MG PO ×2 (08:15→16:26)
[2022-09-11] MEDS: BACITRACIN OINTMENT BULK TUBE 1 APPLIC TOPICAL ×2 (08:15→20:34)
[2022-09-11] MEDS: CYANOCOBALAMIN (VITAMIN B-12) 500 MCG TABLET PO (08:15)
[2022-09-11] MEDS: allopurinoL 100 MG TABLET PO (08:15)
[2022-09-11] MEDS: lisinopriL 2.5 MG TABLET PO (08:15)
[2022-09-11] MEDS: FUROSEMIDE 20 MG TABLET 80 MG PO (08:15)
[2022-09-11] MEDS: ASPIRIN 81 MG TAB.CHEW PO (08:15)
[2022-09-11] MEDS: LOPERAMIDE HCL 2 MG CAPSULE 4 MG PO (08:15)
[2022-09-11] MEDS: MULTIVITAMIN/MINERALS 1 TABLET 1 TAB PO (08:16)
[2022-09-11] MEDS: METOPROLOL SUCCINATE (XL) 50 MG TAB PO (08:16)
[2022-09-11] MEDS: SPIRONOLACTONE 25 MG TABLET 12.5 MG PO (08:16)
[2022-09-11] MEDS: WARFARIN SODIUM 4 MG TABLET PO (16:26)
[2022-09-11] MEDS: MELATONIN 5 MG TABLET 10 MG PO (20:34)
[2022-09-11] MEDS: PRAMIPEXOLE 0.25 MG TABLET PO (20:34)
[2022-09-11] MEDS: ATORVASTATIN CALCIUM 20 MG TABLET PO (20:34)
[2022-09-12] MEDS: BACITRACIN OINTMENT BULK TUBE 1 APPLIC TOPICAL ×2 (07:58→19:21)
[2022-09-12] MEDS: ASPIRIN 81 MG TAB.CHEW PO (07:58)
[2022-09-12] MEDS: allopurinoL 100 MG TABLET PO (07:58)
[2022-09-12] MEDS: CYANOCOBALAMIN (VITAMIN B-12) 500 MCG TABLET PO (07:58)
[2022-09-12] MEDS: lisinopriL 2.5 MG TABLET PO (07:59)
[2022-09-12] MEDS: DIGOXIN 125 MCG TABLET 62.5 MCG PO (07:59)
[2022-09-12] MEDS: METOPROLOL SUCCINATE (XL) 50 MG TAB PO (07:59)
[2022-09-12] MEDS: FUROSEMIDE 20 MG TABLET 80 MG PO (07:59)
[2022-09-12] MEDS: MULTIVITAMIN/MINERALS 1 TABLET 1 TAB PO (07:59)
[2022-09-12] MEDS: SPIRONOLACTONE 25 MG TABLET 12.5 MG PO (07:59)
[2022-09-12] MEDS: LOPERAMIDE HCL 2 MG CAPSULE 4 MG PO (07:59)
[2022-09-12] MEDS: METFORMIN ER 500 MG 1000 MG PO ×2 (07:59→16:24)
[2022-09-12 10:10] LABS: INR 2.63 (0.91-1.10); Prothrombin Time 29.3 Seconds
--- NOTE | 2022-09-12 11:26 | PC.NURSE ---
INR 2.63, clinic ordered to continue Coumadin 3 mg Saturday and Saturday and 4 mg all other days. Next INR is October [id number].
[2022-09-12] MEDS: WARFARIN 3 MG TABLET PO (16:24)
[2022-09-12] MEDS: WARFARIN SODIUM 4 MG TABLET PO (16:24)
[2022-09-12] MEDS: MELATONIN 5 MG TABLET 10 MG PO (19:21)
[2022-09-12] MEDS: PRAMIPEXOLE 0.25 MG TABLET PO (19:21)
[2022-09-12] MEDS: ATORVASTATIN CALCIUM 20 MG TABLET PO (19:21)
--- NOTE | 2022-09-13 02:57 | PC.NURSE ---
WEEKLY CHARTING - WEEK 2: Vital signs reviewed with no concerns. Temporary and comprehensive care plan reviewed with no changes. Requires assist of 1 with bed mobility, repositioning, and transfers. Fall risk assessment indicates resident is at high risk for falls. Current fall interventions: call light and personal items within reach, remind resident to call for assistance, falling star on doorway, hourly checks for safety.
[2022-09-13] MEDS: allopurinoL 100 MG TABLET PO (07:28)
[2022-09-13] MEDS: ASPIRIN 81 MG TAB.CHEW PO (07:28)
[2022-09-13 07:29] VITALS: PULSE 68
[2022-09-13] MEDS: BACITRACIN OINTMENT BULK TUBE 1 APPLIC TOPICAL ×2 (07:29→19:40)
[2022-09-13] MEDS: lisinopriL 2.5 MG TABLET PO (07:29)
[2022-09-13] MEDS: FUROSEMIDE 20 MG TABLET 80 MG PO (07:29)
[2022-09-13] MEDS: CYANOCOBALAMIN (VITAMIN B-12) 500 MCG TABLET PO (07:29)
[2022-09-13] MEDS: LOPERAMIDE HCL 2 MG CAPSULE 4 MG PO (07:29)
[2022-09-13] MEDS: SPIRONOLACTONE 25 MG TABLET 12.5 MG PO (07:29)
[2022-09-13] MEDS: MULTIVITAMIN/MINERALS 1 TABLET 1 TAB PO (07:29)
[2022-09-13] MEDS: DIGOXIN 125 MCG TABLET 62.5 MCG PO (07:29)
[2022-09-13] MEDS: METFORMIN ER 500 MG 1000 MG PO ×2 (07:29→16:25)
[2022-09-13] MEDS: METOPROLOL SUCCINATE (XL) 50 MG TAB PO (07:29)
--- NOTE | 2022-09-13 12:32 | PC.NURSE ---
Order: REFUSE LABORER, Oliver here. Weights reviewed & fluid restriction. Continue fluid restrictions, change weights to 2x/week d/t weight gain.
--- NOTE | 2022-09-13 14:55 | PC.NURSE ---
Weekly Charting - Week 2: Vital signs reviewed and WNL for resident. Temporary and comprehensive care plan reviewed with no changes. Requires assist of 1 for mobility and transfers: pivot transfers with gaitbelt. Able to reposition self in chair and bed, uses bed rails to aid in repositioning. May ambulate short distances with walker, gait belt and staff following behind with WC. Fall risk assessment completed on 08/30 indicates resident is at high risk for falls. Current fall interventions: call light and personal items within reach, remind resident to call for assistance, falling star on doorway, hourly checks for safety.
[2022-09-13] MEDS: WARFARIN SODIUM 4 MG TABLET PO (16:25)
[2022-09-13] MEDS: PRAMIPEXOLE 0.25 MG TABLET PO (19:40)
[2022-09-13] MEDS: MELATONIN 5 MG TABLET 10 MG PO (19:40)
[2022-09-13] MEDS: ATORVASTATIN CALCIUM 20 MG TABLET PO (19:40)
[2022-09-14] MEDS: BACITRACIN OINTMENT BULK TUBE 1 APPLIC TOPICAL ×2 (07:01→19:42)
[2022-09-14] MEDS: allopurinoL 100 MG TABLET PO (07:24)
[2022-09-14] MEDS: ASPIRIN 81 MG TAB.CHEW PO (07:24)
[2022-09-14] MEDS: CYANOCOBALAMIN (VITAMIN B-12) 500 MCG TABLET PO (07:25)
[2022-09-14] MEDS: lisinopriL 2.5 MG TABLET PO (07:25)
[2022-09-14] MEDS: METFORMIN ER 500 MG 1000 MG PO ×2 (07:25→16:11)
[2022-09-14] MEDS: FUROSEMIDE 20 MG TABLET 80 MG PO (07:25)
[2022-09-14] MEDS: MULTIVITAMIN/MINERALS 1 TABLET 1 TAB PO (07:26)
[2022-09-14] MEDS: METOPROLOL SUCCINATE (XL) 50 MG TAB PO (07:26)
[2022-09-14] MEDS: SPIRONOLACTONE 25 MG TABLET 12.5 MG PO (07:30)
[2022-09-14 07:37] VITALS: PULSE 67
[2022-09-14] MEDS: LOPERAMIDE HCL 2 MG CAPSULE 4 MG PO (07:37)
[2022-09-14] MEDS: DIGOXIN 125 MCG TABLET 62.5 MCG PO (07:37)
[2022-09-14] MEDS: WARFARIN 3 MG TABLET PO (16:11)
[2022-09-14] MEDS: MELATONIN 5 MG TABLET 10 MG PO (19:41)
[2022-09-14] MEDS: ATORVASTATIN CALCIUM 20 MG TABLET PO (19:41)
[2022-09-14] MEDS: PRAMIPEXOLE 0.25 MG TABLET PO (19:46)
[2022-09-15] MEDS: CYANOCOBALAMIN (VITAMIN B-12) 500 MCG TABLET PO (07:34)
[2022-09-15] MEDS: allopurinoL 100 MG TABLET PO (07:34)
[2022-09-15] MEDS: ASPIRIN 81 MG TAB.CHEW PO (07:34)
[2022-09-15] MEDS: BACITRACIN OINTMENT BULK TUBE 1 APPLIC TOPICAL ×2 (07:34→20:18)
[2022-09-15 07:36] VITALS: PULSE 64
[2022-09-15] MEDS: lisinopriL 2.5 MG TABLET PO (07:36)
[2022-09-15] MEDS: DIGOXIN 125 MCG TABLET 62.5 MCG PO (07:36)
[2022-09-15] MEDS: METOPROLOL SUCCINATE (XL) 50 MG TAB PO (07:36)
[2022-09-15] MEDS: FUROSEMIDE 20 MG TABLET 80 MG PO (07:36)
[2022-09-15] MEDS: LOPERAMIDE HCL 2 MG CAPSULE 4 MG PO (07:36)
[2022-09-15] MEDS: MULTIVITAMIN/MINERALS 1 TABLET 1 TAB PO (07:36)
[2022-09-15] MEDS: METFORMIN ER 500 MG 1000 MG PO ×2 (07:36→16:18)
[2022-09-15] MEDS: SPIRONOLACTONE 25 MG TABLET 12.5 MG PO (07:36)
[2022-09-15] MEDS: WARFARIN SODIUM 4 MG TABLET PO (16:18)
[2022-09-15] MEDS: PRAMIPEXOLE 0.25 MG TABLET PO (20:18)
[2022-09-15] MEDS: MELATONIN 5 MG TABLET 10 MG PO (20:18)
[2022-09-15] MEDS: ATORVASTATIN CALCIUM 20 MG TABLET PO (20:18)
[2022-09-15 20:55] VITALS: BP 105/67; PULSE 84; RESP 18; TEMP 36.6; O2SAT 98
[2022-09-15 20:56] VITALS: BMI 23.2
[2022-09-16] MEDS: allopurinoL 100 MG TABLET PO (07:42)
[2022-09-16] MEDS: METFORMIN ER 500 MG 1000 MG PO ×2 (07:43→16:34)
[2022-09-16] MEDS: lisinopriL 2.5 MG TABLET PO (07:43)
[2022-09-16] MEDS: FUROSEMIDE 20 MG TABLET 80 MG PO (07:43)
[2022-09-16] MEDS: METOPROLOL SUCCINATE (XL) 50 MG TAB PO (07:43)
[2022-09-16] MEDS: CYANOCOBALAMIN (VITAMIN B-12) 500 MCG TABLET PO (07:43)
[2022-09-16] MEDS: BACITRACIN OINTMENT BULK TUBE 1 APPLIC TOPICAL ×2 (07:43→20:05)
[2022-09-16] MEDS: ASPIRIN 81 MG TAB.CHEW PO (07:43)
[2022-09-16] MEDS: LOPERAMIDE HCL 2 MG CAPSULE 4 MG PO (07:43)
[2022-09-16] MEDS: MULTIVITAMIN/MINERALS 1 TABLET 1 TAB PO (07:45)
[2022-09-16] MEDS: SPIRONOLACTONE 25 MG TABLET 12.5 MG PO (07:45)
[2022-09-16 07:48] VITALS: PULSE 70
[2022-09-16] MEDS: DIGOXIN 125 MCG TABLET 62.5 MCG PO (07:48)
[2022-09-16] MEDS: WARFARIN SODIUM 4 MG TABLET PO (16:34)
[2022-09-16] MEDS: ATORVASTATIN CALCIUM 20 MG TABLET PO (20:05)
[2022-09-16] MEDS: MELATONIN 5 MG TABLET 10 MG PO (20:06)
[2022-09-16] MEDS: PRAMIPEXOLE 0.25 MG TABLET PO (20:06)
[2022-09-17] MEDS: allopurinoL 100 MG TABLET PO (08:08)
[2022-09-17] MEDS: SPIRONOLACTONE 25 MG TABLET 12.5 MG PO (08:08)
[2022-09-17] MEDS: ASPIRIN 81 MG TAB.CHEW PO (08:08)
[2022-09-17] MEDS: lisinopriL 2.5 MG TABLET PO (08:08)
[2022-09-17] MEDS: METFORMIN ER 500 MG 1000 MG PO ×2 (08:08→16:01)
[2022-09-17] MEDS: LOPERAMIDE HCL 2 MG CAPSULE 4 MG PO (08:08)
[2022-09-17] MEDS: BACITRACIN OINTMENT BULK TUBE 1 APPLIC TOPICAL ×2 (08:08→20:07)
[2022-09-17] MEDS: CYANOCOBALAMIN (VITAMIN B-12) 500 MCG TABLET PO (08:08)
[2022-09-17] MEDS: METOPROLOL SUCCINATE (XL) 50 MG TAB PO (08:08)
[2022-09-17] MEDS: MULTIVITAMIN/MINERALS 1 TABLET 1 TAB PO (08:08)
[2022-09-17] MEDS: DIGOXIN 125 MCG TABLET 62.5 MCG PO (08:08)
[2022-09-17] MEDS: FUROSEMIDE 20 MG TABLET 80 MG PO (08:08)
[2022-09-17] MEDS: WARFARIN 3 MG TABLET PO (16:01)
[2022-09-17] MEDS: ATORVASTATIN CALCIUM 20 MG TABLET PO (20:07)
[2022-09-17] MEDS: PRAMIPEXOLE 0.25 MG TABLET PO (20:07)
[2022-09-17] MEDS: MELATONIN 5 MG TABLET 10 MG PO (20:07)
[2022-09-18] MEDS: FUROSEMIDE 20 MG TABLET 80 MG PO (07:07)
[2022-09-18] MEDS: ASPIRIN 81 MG TAB.CHEW PO (07:07)
[2022-09-18] MEDS: allopurinoL 100 MG TABLET PO (07:07)
[2022-09-18] MEDS: lisinopriL 2.5 MG TABLET PO (07:07)
[2022-09-18] MEDS: CYANOCOBALAMIN (VITAMIN B-12) 500 MCG TABLET PO (07:07)
[2022-09-18] MEDS: METFORMIN ER 500 MG 1000 MG PO ×2 (07:07→16:24)
[2022-09-18] MEDS: BACITRACIN OINTMENT BULK TUBE 1 APPLIC TOPICAL ×2 (07:07→19:38)
[2022-09-18] MEDS: LOPERAMIDE HCL 2 MG CAPSULE 4 MG PO (07:07)
[2022-09-18] MEDS: SPIRONOLACTONE 25 MG TABLET 12.5 MG PO (07:08)
[2022-09-18] MEDS: MULTIVITAMIN/MINERALS 1 TABLET 1 TAB PO (07:08)
[2022-09-18] MEDS: METOPROLOL SUCCINATE (XL) 50 MG TAB PO (07:08)
[2022-09-18 07:14] VITALS: PULSE 62
[2022-09-18] MEDS: DIGOXIN 125 MCG TABLET 62.5 MCG PO (07:14)
--- NOTE | 2022-09-18 11:33 | PC.NURSE ---
Order: Pneumoc (Prevnar 20 Syringe) 0.5 ml IM once by CLASSIFIER TENDEROliver.
[2022-09-18] MEDS: WARFARIN SODIUM 4 MG TABLET PO (16:25)
[2022-09-18] MEDS: PRAMIPEXOLE 0.25 MG TABLET PO (19:38)
[2022-09-18] MEDS: ATORVASTATIN CALCIUM 20 MG TABLET PO (19:38)
[2022-09-18] MEDS: MELATONIN 5 MG TABLET 10 MG PO (19:38)
[2022-09-19] MEDS: CYANOCOBALAMIN (VITAMIN B-12) 500 MCG TABLET PO (07:06)
[2022-09-19] MEDS: BACITRACIN OINTMENT BULK TUBE 1 APPLIC TOPICAL ×2 (07:06→20:01)
[2022-09-19] MEDS: ASPIRIN 81 MG TAB.CHEW PO (07:06)
[2022-09-19] MEDS: FUROSEMIDE 20 MG TABLET 80 MG PO (07:06)
[2022-09-19] MEDS: LOPERAMIDE HCL 2 MG CAPSULE 4 MG PO (07:06)
[2022-09-19] MEDS: METFORMIN ER 500 MG 1000 MG PO ×2 (07:06→16:48)
[2022-09-19] MEDS: lisinopriL 2.5 MG TABLET PO (07:06)
[2022-09-19] MEDS: allopurinoL 100 MG TABLET PO (07:06)
[2022-09-19] MEDS: METOPROLOL SUCCINATE (XL) 50 MG TAB PO (07:07)
[2022-09-19] MEDS: SPIRONOLACTONE 25 MG TABLET 12.5 MG PO (07:07)
[2022-09-19] MEDS: MULTIVITAMIN/MINERALS 1 TABLET 1 TAB PO (07:07)
[2022-09-19 07:18] VITALS: PULSE 82
[2022-09-19] MEDS: DIGOXIN 125 MCG TABLET 62.5 MCG PO (07:18)
[2022-09-19] MEDS: WARFARIN SODIUM 4 MG TABLET PO (16:48)
[2022-09-19] MEDS: PNEUMOC 20-VAL CONJ-DIP CRM/PF 0.5 ML SYRINGE IM (19:30)
[2022-09-19] MEDS: ATORVASTATIN CALCIUM 20 MG TABLET PO (20:01)
[2022-09-19] MEDS: MELATONIN 5 MG TABLET 10 MG PO (20:01)
[2022-09-19] MEDS: PRAMIPEXOLE 0.25 MG TABLET PO (20:02)
--- NOTE | 2022-09-20 03:43 | PC.NURSE ---
WEEKLY CHARTING - WEEK 3: Vital signs reviewed with no concerns. Temporary and comprehensive care plan reviewed with no changes. Chronic Porter in place r/t neurogenic bladder. 1 staff assist for transfers, catheter management, bolivar-care, and incontinent product management. Continent of bowels. Wears pull-up. Staff remind resident to utilize call light for assistance. Per weekly skin assessment documentation, no current skin concerns.
[2022-09-20 07:20] VITALS: PULSE 72
[2022-09-20] MEDS: FUROSEMIDE 20 MG TABLET 80 MG PO (07:20)
[2022-09-20] MEDS: DIGOXIN 125 MCG TABLET 62.5 MCG PO (07:20)
[2022-09-20] MEDS: CYANOCOBALAMIN (VITAMIN B-12) 500 MCG TABLET PO (07:20)
[2022-09-20] MEDS: ASPIRIN 81 MG TAB.CHEW PO (07:20)
[2022-09-20] MEDS: METOPROLOL SUCCINATE (XL) 50 MG TAB PO (07:20)
[2022-09-20] MEDS: BACITRACIN OINTMENT BULK TUBE 1 APPLIC TOPICAL ×2 (07:20→21:04)
[2022-09-20] MEDS: lisinopriL 2.5 MG TABLET PO (07:20)
[2022-09-20] MEDS: allopurinoL 100 MG TABLET PO (07:20)
[2022-09-20] MEDS: LOPERAMIDE HCL 2 MG CAPSULE 4 MG PO (07:20)
[2022-09-20] MEDS: METFORMIN ER 500 MG 1000 MG PO ×2 (07:20→16:42)
[2022-09-20] MEDS: MULTIVITAMIN/MINERALS 1 TABLET 1 TAB PO (07:21)
[2022-09-20] MEDS: SPIRONOLACTONE 25 MG TABLET 12.5 MG PO (07:21)
--- NOTE | 2022-09-20 16:07 | PC.NURSE ---
Week #3: Temporary care plan reviewed, no change. Comprehensive care plan reviewed, no change. Resident has no new skin issues at this time. Resident has a Porter catheter is mostly continent of bowel wears a pull up. Resident is a one assist for all transfers and a stand by assist for ADLs.
[2022-09-20] MEDS: WARFARIN SODIUM 4 MG TABLET PO (16:42)
[2022-09-20] MEDS: PRAMIPEXOLE 0.25 MG TABLET PO (20:56)
[2022-09-20] MEDS: ATORVASTATIN CALCIUM 20 MG TABLET PO (20:56)
[2022-09-20] MEDS: MELATONIN 5 MG TABLET 10 MG PO (20:56)
[2022-09-21] MEDS: ASPIRIN 81 MG TAB.CHEW PO (07:41)
[2022-09-21] MEDS: allopurinoL 100 MG TABLET PO (07:41)
[2022-09-21] MEDS: BACITRACIN OINTMENT BULK TUBE 1 APPLIC TOPICAL ×2 (07:41→19:52)
[2022-09-21 07:42] VITALS: PULSE 66
[2022-09-21] MEDS: CYANOCOBALAMIN (VITAMIN B-12) 500 MCG TABLET PO (07:42)
[2022-09-21] MEDS: DIGOXIN 125 MCG TABLET 62.5 MCG PO (07:42)
[2022-09-21] MEDS: LOPERAMIDE HCL 2 MG CAPSULE 4 MG PO (07:43)
[2022-09-21] MEDS: lisinopriL 2.5 MG TABLET PO (07:43)
[2022-09-21] MEDS: FUROSEMIDE 20 MG TABLET 80 MG PO (07:43)
[2022-09-21] MEDS: METFORMIN ER 500 MG 1000 MG PO ×2 (07:43→16:06)
[2022-09-21] MEDS: MULTIVITAMIN/MINERALS 1 TABLET 1 TAB PO (07:44)
[2022-09-21] MEDS: METOPROLOL SUCCINATE (XL) 50 MG TAB PO (07:44)
[2022-09-21] MEDS: SPIRONOLACTONE 25 MG TABLET 12.5 MG PO (07:45)
[2022-09-21] MEDS: WARFARIN 3 MG TABLET PO (16:06)
[2022-09-21] MEDS: MELATONIN 5 MG TABLET 10 MG PO (19:53)
[2022-09-21] MEDS: ATORVASTATIN CALCIUM 20 MG TABLET PO (19:53)
[2022-09-21] MEDS: PRAMIPEXOLE 0.25 MG TABLET PO (19:53)
[2022-09-22] MEDS: CYANOCOBALAMIN (VITAMIN B-12) 500 MCG TABLET PO (07:27)
[2022-09-22] MEDS: allopurinoL 100 MG TABLET PO (07:27)
[2022-09-22] MEDS: BACITRACIN OINTMENT BULK TUBE 1 APPLIC TOPICAL ×2 (07:27→20:00)
[2022-09-22] MEDS: ASPIRIN 81 MG TAB.CHEW PO (07:27)
[2022-09-22] MEDS: METOPROLOL SUCCINATE (XL) 50 MG TAB PO (07:28)
[2022-09-22] MEDS: FUROSEMIDE 20 MG TABLET 80 MG PO (07:28)
[2022-09-22] MEDS: lisinopriL 2.5 MG TABLET PO (07:28)
[2022-09-22] MEDS: METFORMIN ER 500 MG 1000 MG PO ×2 (07:28→16:12)
[2022-09-22] MEDS: MULTIVITAMIN/MINERALS 1 TABLET 1 TAB PO (07:28)
[2022-09-22] MEDS: LOPERAMIDE HCL 2 MG CAPSULE 4 MG PO (07:28)
[2022-09-22] MEDS: SPIRONOLACTONE 25 MG TABLET 12.5 MG PO (07:29)
[2022-09-22 07:33] VITALS: PULSE 60
[2022-09-22] MEDS: DIGOXIN 125 MCG TABLET 62.5 MCG PO (07:33)
[2022-09-22] MEDS: WARFARIN SODIUM 4 MG TABLET PO (16:12)
[2022-09-22 16:30] VITALS: BP 116/69; PULSE 69; RESP 18; TEMP 36.4; O2SAT 99; BMI 23.1
[2022-09-22] MEDS: ATORVASTATIN CALCIUM 20 MG TABLET PO (19:59)
[2022-09-22] MEDS: MELATONIN 5 MG TABLET 10 MG PO (20:00)
[2022-09-22] MEDS: PRAMIPEXOLE 0.25 MG TABLET PO (20:00)
[2022-09-23] MEDS: ASPIRIN 81 MG TAB.CHEW PO (08:02)
[2022-09-23] MEDS: BACITRACIN OINTMENT BULK TUBE 1 APPLIC TOPICAL ×2 (08:02→20:04)
[2022-09-23] MEDS: allopurinoL 100 MG TABLET PO (08:02)
[2022-09-23] MEDS: CYANOCOBALAMIN (VITAMIN B-12) 500 MCG TABLET PO (08:02)
[2022-09-23] MEDS: lisinopriL 2.5 MG TABLET PO (08:03)
[2022-09-23] MEDS: FUROSEMIDE 20 MG TABLET 80 MG PO (08:03)
[2022-09-23] MEDS: METFORMIN ER 500 MG 1000 MG PO ×2 (08:03→16:12)
[2022-09-23] MEDS: LOPERAMIDE HCL 2 MG CAPSULE 4 MG PO (08:03)
[2022-09-23] MEDS: METOPROLOL SUCCINATE (XL) 50 MG TAB PO (08:03)
[2022-09-23] MEDS: SPIRONOLACTONE 25 MG TABLET 12.5 MG PO (08:04)
[2022-09-23] MEDS: MULTIVITAMIN/MINERALS 1 TABLET 1 TAB PO (08:04)
[2022-09-23 08:07] VITALS: PULSE 72
[2022-09-23] MEDS: DIGOXIN 125 MCG TABLET 62.5 MCG PO (08:07)
[2022-09-23] MEDS: WARFARIN SODIUM 4 MG TABLET PO (16:13)
[2022-09-23] MEDS: MELATONIN 5 MG TABLET 10 MG PO (20:04)
[2022-09-23] MEDS: ATORVASTATIN CALCIUM 20 MG TABLET PO (20:04)
[2022-09-23] MEDS: PRAMIPEXOLE 0.25 MG TABLET PO (20:04)
[2022-09-24] MEDS: allopurinoL 100 MG TABLET PO (07:37)
[2022-09-24] MEDS: BACITRACIN OINTMENT BULK TUBE 1 APPLIC TOPICAL ×2 (07:37→19:35)
[2022-09-24] MEDS: ASPIRIN 81 MG TAB.CHEW PO (07:37)
[2022-09-24] MEDS: CYANOCOBALAMIN (VITAMIN B-12) 500 MCG TABLET PO (07:37)
[2022-09-24] MEDS: FUROSEMIDE 20 MG TABLET 80 MG PO (07:38)
[2022-09-24] MEDS: METFORMIN ER 500 MG 1000 MG PO ×2 (07:38→15:53)
[2022-09-24] MEDS: lisinopriL 2.5 MG TABLET PO (07:38)
[2022-09-24] MEDS: MULTIVITAMIN/MINERALS 1 TABLET 1 TAB PO (07:38)
[2022-09-24] MEDS: METOPROLOL SUCCINATE (XL) 50 MG TAB PO (07:38)
[2022-09-24] MEDS: LOPERAMIDE HCL 2 MG CAPSULE 4 MG PO (07:38)
[2022-09-24] MEDS: SPIRONOLACTONE 25 MG TABLET 12.5 MG PO (07:39)
[2022-09-24 07:44] VITALS: PULSE 82
[2022-09-24] MEDS: DIGOXIN 125 MCG TABLET 62.5 MCG PO (07:44)
[2022-09-24] MEDS: WARFARIN 3 MG TABLET PO (15:53)
[2022-09-24] MEDS: ATORVASTATIN CALCIUM 20 MG TABLET PO (19:35)
[2022-09-24] MEDS: MELATONIN 5 MG TABLET 10 MG PO (19:35)
[2022-09-24] MEDS: PRAMIPEXOLE 0.25 MG TABLET PO (19:35)
[2022-09-25] MEDS: ASPIRIN 81 MG TAB.CHEW PO (08:18)
[2022-09-25] MEDS: allopurinoL 100 MG TABLET PO (08:18)
[2022-09-25] MEDS: CYANOCOBALAMIN (VITAMIN B-12) 500 MCG TABLET PO (08:18)
[2022-09-25] MEDS: BACITRACIN OINTMENT BULK TUBE 1 APPLIC TOPICAL ×2 (08:18→19:56)
[2022-09-25 08:19] VITALS: PULSE 82
[2022-09-25] MEDS: LOPERAMIDE HCL 2 MG CAPSULE 4 MG PO (08:19)
[2022-09-25] MEDS: MULTIVITAMIN/MINERALS 1 TABLET 1 TAB PO (08:19)
[2022-09-25] MEDS: METOPROLOL SUCCINATE (XL) 50 MG TAB PO (08:19)
[2022-09-25] MEDS: lisinopriL 2.5 MG TABLET PO (08:19)
[2022-09-25] MEDS: DIGOXIN 125 MCG TABLET 62.5 MCG PO (08:19)
[2022-09-25] MEDS: METFORMIN ER 500 MG 1000 MG PO ×2 (08:19→16:24)
[2022-09-25] MEDS: FUROSEMIDE 20 MG TABLET 80 MG PO (08:19)
[2022-09-25] MEDS: SPIRONOLACTONE 25 MG TABLET 12.5 MG PO (08:19)
--- NOTE | 2022-09-25 09:56 | PC.NURSE ---
Skin - Pt has blister on R thigh d/t catheter leg strap rubbing against skin. White tubigrip placed in bathroom. Place tubigrip on R thigh underneath leg strap to protect skin.
[2022-09-25] MEDS: WARFARIN SODIUM 4 MG TABLET PO (16:24)
[2022-09-25] MEDS: ATORVASTATIN CALCIUM 20 MG TABLET PO (19:56)
[2022-09-25] MEDS: MELATONIN 5 MG TABLET 10 MG PO (19:56)
[2022-09-25] MEDS: PRAMIPEXOLE 0.25 MG TABLET PO (19:56)
[2022-09-26] MEDS: CYANOCOBALAMIN (VITAMIN B-12) 500 MCG TABLET PO (08:12)
[2022-09-26] MEDS: allopurinoL 100 MG TABLET PO (08:12)
[2022-09-26] MEDS: BACITRACIN OINTMENT BULK TUBE 1 APPLIC TOPICAL ×2 (08:12→19:46)
[2022-09-26] MEDS: ASPIRIN 81 MG TAB.CHEW PO (08:12)
[2022-09-26 08:13] VITALS: PULSE 68
[2022-09-26] MEDS: lisinopriL 2.5 MG TABLET PO (08:13)
[2022-09-26] MEDS: METOPROLOL SUCCINATE (XL) 50 MG TAB PO (08:13)
[2022-09-26] MEDS: METFORMIN ER 500 MG 1000 MG PO ×2 (08:13→15:57)
[2022-09-26] MEDS: FUROSEMIDE 20 MG TABLET 80 MG PO (08:13)
[2022-09-26] MEDS: DIGOXIN 125 MCG TABLET 62.5 MCG PO (08:13)
[2022-09-26] MEDS: LOPERAMIDE HCL 2 MG CAPSULE 4 MG PO (08:13)
[2022-09-26] MEDS: MULTIVITAMIN/MINERALS 1 TABLET 1 TAB PO (08:15)
[2022-09-26] MEDS: SPIRONOLACTONE 25 MG TABLET 12.5 MG PO (08:15)
[2022-09-26] MEDS: WARFARIN SODIUM 4 MG TABLET PO (15:57)
[2022-09-26] MEDS: ATORVASTATIN CALCIUM 20 MG TABLET PO (19:46)
[2022-09-26] MEDS: PRAMIPEXOLE 0.25 MG TABLET PO (19:46)
[2022-09-26] MEDS: MELATONIN 5 MG TABLET 10 MG PO (19:46)
--- NOTE | 2022-09-27 02:30 | PC.NURSE ---
WEEKLY CHARTING - WEEK 4: Vital signs reviewed with no concerns. Temporary and comprehensive care plan reviewed - no changes. No documented behaviors in the last month. Currently receives melatonin 10mg at HS with no adverse effects. Moderate hearing impairment. New bilateral hearing aids scheduled to arrive next week. Is able to communicate needs verbally. Usually understands. Occasional episodes of confusion and forgetfulness. Cognitively intact a/e/b BIMS score of 15. Visual impairment is corrected with glasses. NO medication changes. All meds administered by nurse. No change in health condition.
[2022-09-27] MEDS: ASPIRIN 81 MG TAB.CHEW PO (07:50)
[2022-09-27] MEDS: CYANOCOBALAMIN (VITAMIN B-12) 500 MCG TABLET PO (07:50)
[2022-09-27] MEDS: BACITRACIN OINTMENT BULK TUBE 1 APPLIC TOPICAL ×2 (07:50→19:48)
[2022-09-27] MEDS: MULTIVITAMIN/MINERALS 1 TABLET 1 TAB PO (07:50)
[2022-09-27] MEDS: lisinopriL 2.5 MG TABLET PO (07:50)
[2022-09-27] MEDS: METFORMIN ER 500 MG 1000 MG PO (07:50)
[2022-09-27] MEDS: allopurinoL 100 MG TABLET PO (07:50)
[2022-09-27] MEDS: FUROSEMIDE 20 MG TABLET 80 MG PO (07:50)
[2022-09-27] MEDS: METOPROLOL SUCCINATE (XL) 50 MG TAB PO (07:50)
[2022-09-27] MEDS: DIGOXIN 125 MCG TABLET 62.5 MCG PO (07:50)
[2022-09-27] MEDS: SPIRONOLACTONE 25 MG TABLET 12.5 MG PO (07:50)
[2022-09-27] MEDS: LOPERAMIDE HCL 2 MG CAPSULE 4 MG PO (07:50)
[2022-09-27] MEDS: PRAMIPEXOLE 0.25 MG TABLET PO (19:48)
[2022-09-27] MEDS: ATORVASTATIN CALCIUM 20 MG TABLET PO (19:48)
[2022-09-27] MEDS: MELATONIN 5 MG TABLET 10 MG PO (19:48)
[2022-09-28] MEDS: MULTIVITAMIN/MINERALS 1 TABLET 1 TAB PO (07:07)
[2022-09-28] MEDS: LOPERAMIDE HCL 2 MG CAPSULE 4 MG PO (07:07)
[2022-09-28] MEDS: SPIRONOLACTONE 25 MG TABLET 12.5 MG PO (07:07)
[2022-09-28] MEDS: lisinopriL 2.5 MG TABLET PO (07:07)
[2022-09-28] MEDS: BACITRACIN OINTMENT BULK TUBE 1 APPLIC TOPICAL ×2 (07:07→20:46)
[2022-09-28] MEDS: FUROSEMIDE 20 MG TABLET 80 MG PO (07:07)
[2022-09-28] MEDS: METOPROLOL SUCCINATE (XL) 50 MG TAB PO (07:07)
[2022-09-28] MEDS: METFORMIN ER 500 MG 1000 MG PO ×2 (07:07→16:41)
[2022-09-28] MEDS: ASPIRIN 81 MG TAB.CHEW PO (07:07)
[2022-09-28] MEDS: CYANOCOBALAMIN (VITAMIN B-12) 500 MCG TABLET PO (07:07)
[2022-09-28] MEDS: allopurinoL 100 MG TABLET PO (07:07)
[2022-09-28 07:10] VITALS: PULSE 72
[2022-09-28] MEDS: DIGOXIN 125 MCG TABLET 62.5 MCG PO (07:10)
--- NOTE | 2022-09-28 11:04 | PC.PHA ---
Medication Review~ Medication Monitoring: Warfarin but not psychopharmacotherapy to follow. Comments: Patient continues on warfarin that is dosed per therapeutic INR results for permanent Afib. Suggested course: None at this time.
[2022-09-28] MEDS: WARFARIN 3 MG TABLET PO (16:40)
[2022-09-28] MEDS: MELATONIN 5 MG TABLET 10 MG PO (20:46)
[2022-09-28] MEDS: PRAMIPEXOLE 0.25 MG TABLET PO (20:46)
[2022-09-28] MEDS: ATORVASTATIN CALCIUM 20 MG TABLET PO (20:46)
[2022-09-29] MEDS: MULTIVITAMIN/MINERALS 1 TABLET 1 TAB PO (07:29)
[2022-09-29] MEDS: METFORMIN ER 500 MG 1000 MG PO ×2 (07:29→20:35)
[2022-09-29] MEDS: LOPERAMIDE HCL 2 MG CAPSULE 4 MG PO (07:29)
[2022-09-29] MEDS: allopurinoL 100 MG TABLET PO (07:29)
[2022-09-29] MEDS: BACITRACIN OINTMENT BULK TUBE 1 APPLIC TOPICAL ×2 (07:29→20:35)
[2022-09-29] MEDS: FUROSEMIDE 20 MG TABLET 80 MG PO (07:29)
[2022-09-29] MEDS: SPIRONOLACTONE 25 MG TABLET 12.5 MG PO (07:29)
[2022-09-29] MEDS: CYANOCOBALAMIN (VITAMIN B-12) 500 MCG TABLET PO (07:29)
[2022-09-29] MEDS: lisinopriL 2.5 MG TABLET PO (07:29)
[2022-09-29] MEDS: METOPROLOL SUCCINATE (XL) 50 MG TAB PO (07:29)
[2022-09-29] MEDS: ASPIRIN 81 MG TAB.CHEW PO (07:29)
[2022-09-29 07:35] VITALS: PULSE 68
[2022-09-29] MEDS: DIGOXIN 125 MCG TABLET 62.5 MCG PO (07:35)
[2022-09-29 15:00] VITALS: BP 94/59; PULSE 65; RESP 16; O2SAT 98; BMI 22.8
[2022-09-29] MEDS: ATORVASTATIN CALCIUM 20 MG TABLET PO (20:35)
[2022-09-29] MEDS: PRAMIPEXOLE 0.25 MG TABLET PO (20:35)
[2022-09-29] MEDS: WARFARIN SODIUM 4 MG TABLET PO (20:35)
[2022-09-29] MEDS: MELATONIN 5 MG TABLET 10 MG PO (20:35)
--- NOTE | 2022-09-29 21:52 | PC.NURSE ---
Outing: Resident is out with his son Dax for dinner at 1630, returns at 1920.
--- NOTE | 2022-09-30 01:22 | PC.NURSE ---
Catheter: OFE reported that drops of blood noted in toilet from Catheter site. Resident stated that his leg strap was pulling not holding catheter in place. Leg strap adjusted. Area cleansed and bacitracin applied. No bleeding noted from site at this time. Will continues to monitor.
--- NOTE | 2022-09-30 01:36 | PC.NURSE ---
Catheter: 0136 OFE reported that drop of blood noted with toileting. Noted francisco appearing blood in catheter tubing and small bleeding from his penis noted upon inspection. Resident statedHis legs strap was pulling not holding catheter in place, leg straps adjusted, encouraged some fluid with consideration of fluid restriction. Area cleansed and applied bacitracin. Denied pain at this time. Will continues to monitor.
--- NOTE | 2022-09-30 01:36 | PC.NURSE ---
Catheter: 0136 OFE reported that drop of blood noted with toileting. Noted francisco appearing blood in catheter tubing and small bleeding from his penis noted upon inspection, Resident denied any pain or discomfort. Encouraged some fluid with consideration of fluid restriction. Area cleansed and applied bacitracin. Will continues to monitor.
[2022-09-30] MEDS: ACETAMINOPHEN 325 MG TABLET 650 MG PO (05:50)
--- NOTE | 2022-09-30 06:30 | PC.NURSE ---
Catheter: Resident complains sever pain to lower abdomen. Noted blood in catheter. Resident states it happens before when the catheter clogged unable to flow the urine then they flushed urine flow with out no problem. This underwriter and lodging house keeper unable to complete flushing to move blood in the catheter due to resident' pain. Resident sent to ER per lodging house keeper.
--- NOTE | 2022-09-30 11:07 | PC.NURSE ---
Resident Transfer : Resident was send to ED this morning at 0550 due to catheter obstruction. At 1030, it was informed by dye house supervisor that resident is in serious condition and admitted to Med/Surg ( CCU 3) due to high heart rate and B/P. Resident`s son Devin was notified and will come to visit immediately. Resident was put on bed hold
--- NOTE | 2022-10-01 14:46 | REH.OT ---
Catheter: Resident complains sever pain to lower abdomen at 0534. Resident states it happens before when the catheter clog,they flushed and urine flow with out no problem.? underwriter attempted to flush/irrigate with out success. Informed house calls nurse attempted to flush/irrigate with out success, resident was in pain administered Tylenol 650mg pso.? Resident then sent to ER with per house calls nurse.
--- NOTE | 2022-10-01 17:00 | PC.NURSE ---
: Received call from [facility] updating staff the resident 10/01/22 at 1613.
--- NOTE | 2022-10-01 17:30 | PC.NURSE ---
UPDATE: [facility] contacted [facility] to inform us that resident at 1615 today.
--- NOTE | 2022-10-01 21:43 | PC.NURSE ---
Recapitulation: Resident was admitted to [facility] on 02/15/22 after a fall at home. Resident has a hx of heart failure, cardiomyopathy, afib and UTI. Goal of stay was to rehab with PT/OT and return to home. Was to follow up with [facility] regarding cardiac care. D/t increased shortness of breath resident was admitted to [facility] on 02/20/22 and returned to [facility] on 02/27/22. Resident was unable to return to previous living situation and stay was changed to LTC. On 09/30/22 resident had blood present in catheter, c/o lower abd pain and catheter was not draining. Nursing staff was unable to flush and resident was sent to ED for evaluation. On 09/30/22 resident was transferred to [facility] d/t deteriorating condition. ANW updated staff that resident 10/01/22 at 1613.
== END 2022-10-01 17:30 | disposition expired | DRG 948 ==
LOC: NLTCC 07-12 14:24 → LTCBEDHOLD 09-30 11:24
PROVIDERS: Family Medicine; Admitting Provider Family Medicine; Family Provider Nurse Practitioner Gerontology; Visit Provider Family Medicine
DX: R53.1 Weakness (principal); I50.22 Chronic systolic (congestive) heart failure; N39.0 Urinary tract infection, site not specified; I35.1 Nonrheumatic aortic (valve) insufficiency; Z95.2 Presence of prosthetic heart valve
CPT/HCPCS: 36415; 80048; 81001; 82565; 83036; 85610; 87086; 87186; 87493; 87502; 87635; 87804; 90471; 90662; A9270

== ENCOUNTER 2022-09-30 06:14 | Inpatient (IN) | payer OTHER, SELFPAY ==
[2022-09-30] VITALS (24 sets, daily range): BP systolic 96–145; BP diastolic 56–122; PULSE 109–186; RESP 18–24; TEMP 37.2–38.8; O2SAT 88–100; BMI 22.8
--- NOTE | 2022-09-30 06:29 | ED.MALEGU ---
HPI - Male Genitourinary General Date Seen: 09/30/22 <Luis Alfredo You MD - Last Filed: 09/30/22 07:51> Chief complaint: Urogenital Problems, Male <Luis Alfredo You MD - Last Filed: 09/30/22 07:51> Stated complaint: Catheter issues <Luis Alfredo You MD - Last Filed: 09/30/22 07:51> Time Seen by Provider: 09/30/22 06:15 <Luis Alfredo You MD - Last Filed: 09/30/22 07:51> Source: patient <Luis Alfredo You MD - Last Filed: 09/30/22 07:51> Mode of arrival: wheelchair <Luis Alfredo You MD - Last Filed: 09/30/22 07:51> Limitations: no limitations <Luis Alfredo You MD - Last Filed: 09/30/22 07:51> History of Present Illness HPI Narrative: Patient is 87-year-old gentleman from the long-term care. He presents here to the emergency room with increasing lower abdominal discomfort, and blood in his urine. He has had really passing any urine, and has an indwelling Porter catheter. He is on Coumadin for anticoagulation, I find him in room 5. Is clearly in some discomfort, holding his lower abdomen. <Luis Alfredo You MD - Last Filed: 09/30/22 07:51> Related Data Sexually active: No <Luis Alfredo You MD - Last Filed: 09/30/22 07:51> Home medications: Home Medications Medication Instructions Recorded Confirmed allopurinol 100 mg tablet 100 mg PO DAILY 09/30/22 09/30/22 aspirin 81 mg chewable tablet 81 mg PO DAILY 09/30/22 09/30/22 atorvastatin 20 mg tablet 20 mg PO HS 09/30/22 09/30/22 calcium carbonate 500 mg-vitamin 1 tab PO DAILY 09/30/22 09/30/22 D3 5 mcg (200 unit) tablet (Oyster Shell Calcium-Vitamin D3) cyanocobalamin (vitamin B-12) 500 500 mcg PO DAILY 09/30/22 09/30/22 mcg tablet digoxin 125 mcg (0.125 mg) tablet 0.0625 mg PO DAILY 09/30/22 09/30/22 furosemide 80 mg tablet 80 mg PO DAILY 09/30/22 09/30/22 geriatric multivitamin-min 1 tab PO DAILY 09/30/22 09/30/22 lisinopril 2.5 mg tablet 2.5 mg PO DAILY 09/30/22 09/30/22 loperamide 2 mg capsule 4 mg PO DAILY 09/30/22 09/30/22 melatonin 10 mg tablet 10 mg PO HS 09/30/22 09/30/22 metformin 500 mg tablet,extended 1,000 mg PO BIDWM 09/30/22 09/30/22 release 24 hr metoprolol succinate 50 mg 50 mg PO DAILY 09/30/22 09/30/22 tablet,extended release 24 hr nystatin 100,000 unit/gram topical 1 applic topical BID PRN 09/30/22 09/30/22 powder (Nystop) pramipexole 0.25 mg tablet 0.25 mg PO HS 09/30/22 09/30/22 spironolactone 25 mg tablet 12.5 mg PO DAILY 09/30/22 09/30/22 warfarin 2 mg tablet See Rx Instructions .Route .COMPLEX 09/30/22 09/30/22 <Luis Alfredo You MD - Last Filed: 09/30/22 07:51> Allergies/Adverse reactions: Allergies Allergy/AdvReac Type Severity Reaction Status Date / Time No Known Drug Allergies Allergy Verified 04/25/22 15:51 <Luis Alfredo You MD - Last Filed: 09/30/22 07:51> Review of Systems Status of ROS: Reports: unobtainable due to medical condition and unobtainable due to mental status <Luis Alfredo You MD - Last Filed: 09/30/22 07:51> Narrative: Patient has a history of dementia, does not really talk, does hold his lower abdomen <Luis Alfredo You MD - Last Filed: 09/30/22 07:51> PFSH PFSH Social History: Social History Smoking Status: Unknown if ever smoked Non-prescribed substance use: denies use <Luis Alfredo You MD - Last Filed: 09/30/22 07:51> Exam Narrative: Exam Narrative: No scleral icterus, oropharynx normal, neck is supple chest is clear heart sounds are normal, his abdomen shows what seems like a palpable bladder above his umbilicus. 1st thing were going to do is changes Porter catheter, as I suspect from my percussion examination of his abdomen, that he is full, with greater than a L in his bladder. The fails to give him resolution, he will be placed on CBI, we will check his hemoglobin and also check his INR. <Luis Alfredo You MD - Last Filed: 09/30/22 07:51> Const: Vital Signs, click to edit/add: Vital Signs - 24 hr 09/30/22 06:18 09/30/22 08:06 09/30/22 08:07 Temperature 99.2 F Pulse Rate 127 H 109 H Respiratory Rate 24 Blood Pressure 114/56 L Blood Pressure [Ri ght Upper Arm] 145/122 H Pulse Oximetry 95 93 94 Oxygen Delivery Me thod Room Air 09/30/22 08:14 09/30/22 08:22 09/30/22 08:26 Temperature Pulse Rate 112 H 137 H Respiratory Rate Blood Pressure 96/57 L 97/77 Blood Pressure [Ri ght Upper Arm] Pulse Oximetry 88 93 Oxygen Delivery Me thod 09/30/22 08:45 09/30/22 08:47 09/30/22 08:58 Temperature Pulse Rate 150 H 155 H 151 H Respiratory Rate Blood Pressure 138/63 98/63 Blood Pressure [Ri ght Upper Arm] Pulse Oximetry 93 92 96 Oxygen Delivery Me thod 09/30/22 09:00 09/30/22 09:01 09/30/22 09:02 Temperature Pulse Rate 134 H 160 H 157 H Respiratory Rate Blood Pressure 134/69 130/72 Blood Pressure [Ri ght Upper Arm] Pulse Oximetry 94 91 94 Oxygen Delivery Me thod 09/30/22 09:20 09/30/22 09:21 09/30/22 09:40 Temperature Pulse Rate 159 H 152 H 155 H Respiratory Rate Blood Pressure 109/61 Blood Pressure [Ri ght Upper Arm] Pulse Oximetry 93 91 95 Oxygen Delivery Me thod 09/30/22 09:42 09/30/22 10:00 09/30/22 10:01 Temperature Pulse Rate 159 H 147 H 146 H Respiratory Rate Blood Pressure 116/63 98/69 Blood Pressure [Ri ght Upper Arm] Pulse Oximetry 90 96 96 Oxygen Delivery Me thod <Luis Alfredo You MD - Last Filed: 09/30/22 07:51> Vital Signs, click to edit/add: Vital Signs - 24 hr 09/30/22 06:18 09/30/22 08:06 09/30/22 08:07 Temperature 99.2 F Pulse Rate 127 H 109 H Respiratory Rate 24 Blood Pressure 114/56 L Blood Pressure [Ri ght Upper Arm] 145/122 H Pulse Oximetry 95 93 94 Oxygen Delivery Me thod Room Air 09/30/22 08:14 09/30/22 08:22 09/30/22 08:26 Temperature Pulse Rate 112 H 137 H Respiratory Rate Blood Pressure 96/57 L 97/77 Blood Pressure [Ri ght Upper Arm] Pulse Oximetry 88 93 Oxygen Delivery Me thod 09/30/22 08:45 09/30/22 08:47 09/30/22 08:58 Temperature Pulse Rate 150 H 155 H 151 H Respiratory Rate Blood Pressure 138/63 98/63 Blood Pressure [Ri ght Upper Arm] Pulse Oximetry 93 92 96 Oxygen Delivery Me thod 09/30/22 09:00 09/30/22 09:01 09/30/22 09:02 Temperature Pulse Rate 134 H 160 H 157 H Respiratory Rate Blood Pressure 134/69 130/72 Blood Pressure [Ri ght Upper Arm] Pulse Oximetry 94 91 94 Oxygen Delivery Me thod 09/30/22 09:20 09/30/22 09:21 09/30/22 09:40 Temperature Pulse Rate 159 H 152 H 155 H Respiratory Rate Blood Pressure 109/61 Blood Pressure [Ri ght Upper Arm] Pulse Oximetry 93 91 95 Oxygen Delivery Me thod 09/30/22 09:42 09/30/22 10:00 09/30/22 10:01 Temperature Pulse Rate 159 H 147 H 146 H Respiratory Rate Blood Pressure 116/63 98/69 Blood Pressure [Ri ght Upper Arm] Pulse Oximetry 90 96 96 Oxygen Delivery Me thod <Radhika Jaime MD - Last Filed: 09/30/22 11:53> Documenting provider has reviewed patient's vital signs: yes <Luis Alfredo You MD - Last Filed: 09/30/22 07:51> Course Reevaluation(s) Reevaluation #1: Nurse had become use the ultrasound come in to confirm that they had placement of the Porter, fully 3 way catheter was placed, there is clearly a flow into the bladder, and clearly there was debris consistent with likely clot. They were able to get the 3 way working, and the patient is now having red returns. He did have right-sided groin all swelling, consistent with an hernia, was able to push this back in, he is having absolutely no pain, will go ahead and do a CT scan to further evaluate this, but I suspect he will need admission and CBI. Laboratory work will be reviewed by the oncoming ER physician, there is currently no beds, <Luis Alfredo You MD - Last Filed: 09/30/22 07:51> Time: 07:33 <Luis Alfredo You MD - Last Filed: 09/30/22 07:51> Vital Signs Vital signs: Initial Vital Signs Temperature 99.2 F 09/30/22 06:18 Temperature Source Temporal Artery Scan 09/30/22 06:18 Respiratory Rate 24 09/30/22 06:18 Blood Pressure 145/122 H 09/30/22 06:18 Blood Pressure Mean 129 09/30/22 06:18 Blood Pressure Position Semi-Fowlers 09/30/22 06:18 Pulse Oximetry 95 09/30/22 06:18 Oxygen Delivery Method 09/30/22 06:18 Vital Signs Temperature 99.2 F 09/30/22 06:18 Respiratory Rate 24 09/30/22 06:18 Blood Pressure 145/122 H 09/30/22 06:18 Pulse Oximetry 95 09/30/22 06:18 Oxygen Delivery Method 09/30/22 06:18 Temperature 99.2 F 09/30/22 06:18 Pulse Rate 146 H 09/30/22 10:01 Respiratory Rate 24 09/30/22 06:18 Blood Pressure 98/69 09/30/22 10:01 Pulse Oximetry 96 09/30/22 10:01 Oxygen Delivery Method 09/30/22 06:18 <Luis Alfredo You MD - Last Filed: 09/30/22 07:51> Initial Vital Signs Temperature 99.2 F 09/30/22 06:18 Temperature Source Temporal Artery Scan 09/30/22 06:18 Respiratory Rate 24 09/30/22 06:18 Blood Pressure 145/122 H 09/30/22 06:18 Blood Pressure Mean 129 09/30/22 06:18 Blood Pressure Position Semi-Fowlers 09/30/22 06:18 Pulse Oximetry 95 09/30/22 06:18 Oxygen Delivery Method 09/30/22 06:18 Vital Signs Temperature 99.2 F 09/30/22 06:18 Respiratory Rate 24 09/30/22 06:18 Blood Pressure 145/122 H 09/30/22 06:18 Pulse Oximetry 95 09/30/22 06:18 Oxygen Delivery Method 09/30/22 06:18 Temperature 99.2 F 09/30/22 06:18 Pulse Rate 146 H 09/30/22 10:01 Respiratory Rate 24 09/30/22 06:18 Blood Pressure 98/69 09/30/22 10:01 Pulse Oximetry 96 09/30/22 10:01 Oxygen Delivery Method 09/30/22 06:18 <Radhika Jaime MD - Last Filed: 09/30/22 11:53> MDM - Male Genitourinary MDM Narrative Medical decision making narrative: Patient is seen in room 5, we were able to start continuous bladder irrigation, I will do not get a CT scan also, to assess that there is no other acute abdominal issue ongoing for him, he denies any abdominal pain, but clearly he is in atrial fibrillation now, with an elevated rate. Other laboratory work, and final disposition per oncoming ER physician. <Luis Alfredo You MD - Last Filed: 09/30/22 07:51> Patient is seen in room 5, we were able to start continuous bladder irrigation, I will do not get a CT scan also, to assess that there is no other acute abdominal issue ongoing for him, he denies any abdominal pain, but clearly he is in atrial fibrillation now, with an elevated rate. Other laboratory work, and final disposition per oncoming ER physician. Jaime: Patient was signed out to me by Dr. You. We were able to secure a bed here at the [facility]. I was called into room as patient noted to be experiencing large amounts of hematuria. There was challenges with placement of catheter. This was ultimately done. Given the large amount of blood I did type and cross 2 units. Additional dose of diltiazem given with minimal affect. 1. Gross hematuria-continuous irrigation ongoing. INR 2.09. 2. AFib with RVR-AFib chronic medical condition for this patient. Diltiazem 10 mg x 2 not effective. Therefore we ordered hemoglobin to ensure that this is not physiological tachycardia. 3. Disposition-patient was admitted under the care of . <Radhika Jaime MD - Last Filed: 09/30/22 11:53> Differential Diagnosis Differential diagnosis: Likely urinary tract infection, acute retention of urine and inguinal hernia <Luis Alfredo You MD - Last Filed: 09/30/22 07:51> Medical Records Attestation: I reviewed the patient's medical records. <Luis Alfredo oYu MD - Last Filed: 09/30/22 07:51> Lab Data Attestation: I reviewed the patient's lab results. <Radhika Jaime MD - Last Filed: 09/30/22 11:53> Labs: Lab Results 09/30/22 09/30/22 09/30/22 Range/Units 07:10 07:10 07:10 WBC 5.60 (4.50-11.00) K/uL RBC 3.80 L (4.30-5.90) m/uL Hgb 12.2 L (13.5-17.5) gm/dL Hct 36.5 L (37.0-53.0) % MCV 96 (80-100) fL MCH 32 (26-34) pg MCHC 33 (32-36) gm/dL RDW Coeff of Ta 14.1 (11.5-15.5) % Plt Count 183 (140-440) K/uL Neut % (Auto) 73.6 H (42.0-72.0) % Lymph % (Auto) 22.0 (20-44) % [place] % (Auto) 0.7 (0.0-11.0) % Eos % (Auto) 2.7 (0.0-7.0) % Baso % (Auto) 0.5 (0.0-3.0) % Neut # (Auto) 4.10 (1.7-7.0) K/uL Lymph # (Auto) 1.23 (0.90-2.90) K/uL [place] # (Auto) 0.00 (0.00-0.90) K/UL Eos # (Auto) 0.15 (0.00-0.50) K/uL Baso # (Auto) 0.03 (0.00-0.30) K/uL Abs Immat Gran (auto) 0.03 (0.00-0.30) K/uL Imm/Tot Granulo (auto) 0.5 % INR 2.09 H (0.91-1.10) APTT 35 H (23-33) Seconds Sodium 138 (135-149) mmol/L Potassium 4.3 (3.6-5.1) mmol/L Chloride 101 (96-114) mmol/L Carbon Dioxide 21 (20-32) mmol/L BUN 47 H (7-30) mg/dL Creatinine 1.3 (0.5-1.5) mg/dL Estimated GFR 54 ml/min Glucose 200 H (60-115) mg/dL Calcium 9.4 (8.4-10.6) mg/dL Troponin I 0.02 (0.01-0.04) ng/mL Stl C.difficile Tox PCR (Negative) St C. diff Tox Epid 027 (Negative) SARS-CoV-2 (PCR) (Negative) Influenza Type A (PCR) (Negative) Influenza Type B (PCR) (Negative) RSV (PCR) (Negative) Blood Type Antibody Screen 09/30/22 09/30/22 09/30/22 Range/Units 07:50 07:55 08:48 WBC (4.50-11.00) K/uL RBC (4.30-5.90) m/uL Hgb (13.5-17.5) gm/dL Hct (37.0-53.0) % MCV (80-100) fL MCH (26-34) pg MCHC (32-36) gm/dL RDW Coeff of Ta (11.5-15.5) % Plt Count (140-440) K/uL Neut % (Auto) (42.0-72.0) % Lymph % (Auto) (20-44) % [place] % (Auto) (0.0-11.0) % Eos % (Auto) (0.0-7.0) % Baso % (Auto) (0.0-3.0) % Neut # (Auto) (1.7-7.0) K/uL Lymph # (Auto) (0.90-2.90) K/uL [place] # (Auto) (0.00-0.90) K/UL Eos # (Auto) (0.00-0.50) K/uL Baso # (Auto) (0.00-0.30) K/uL Abs Immat Gran (auto) (0.00-0.30) K/uL Imm/Tot Granulo (auto) % INR (0.91-1.10) APTT (23-33) Seconds Sodium (135-149) mmol/L Potassium (3.6-5.1) mmol/L Chloride (96-114) mmol/L Carbon Dioxide (20-32) mmol/L BUN (7-30) mg/dL Creatinine (0.5-1.5) mg/dL Estimated GFR ml/min Glucose (60-115) mg/dL Calcium (8.4-10.6) mg/dL Troponin I (0.01-0.04) ng/mL Stl C.difficile Tox PCR Negative (Negative) St C. diff Tox Epid 027 PRESUMPTIVE NEGATIVE (Negative) SARS-CoV-2 (PCR) Negative SARS-CoV-2 (Negative) Influenza Type A (PCR) Negative PCR FLU A (Negative) Influenza Type B (PCR) Negative PCR FLU B (Negative) RSV (PCR) Negative PCR RSV (Negative) Blood Type A Positive Antibody Screen NEGATIVE 09/30/22 Range/Units 09:39 WBC (4.50-11.00) K/uL RBC (4.30-5.90) m/uL Hgb 11.7 L (13.5-17.5) gm/dL Hct (37.0-53.0) % MCV (80-100) fL MCH (26-34) pg MCHC (32-36) gm/dL RDW Coeff of Ta (11.5-15.5) % Plt Count (140-440) K/uL Neut % (Auto) (42.0-72.0) % Lymph % (Auto) (20-44) % [place] % (Auto) (0.0-11.0) % Eos % (Auto) (0.0-7.0) % Baso % (Auto) (0.0-3.0) % Neut # (Auto) (1.7-7.0) K/uL Lymph # (Auto) (0.90-2.90) K/uL [place] # (Auto) (0.00-0.90) K/UL Eos # (Auto) (0.00-0.50) K/uL Baso # (Auto) (0.00-0.30) K/uL Abs Immat Gran (auto) (0.00-0.30) K/uL Imm/Tot Granulo (auto) % INR (0.91-1.10) APTT (23-33) Seconds Sodium (135-149) mmol/L Potassium (3.6-5.1) mmol/L Chloride (96-114) mmol/L Carbon Dioxide (20-32) mmol/L BUN (7-30) mg/dL Creatinine (0.5-1.5) mg/dL Estimated GFR ml/min Glucose (60-115) mg/dL Calcium (8.4-10.6) mg/dL Troponin I (0.01-0.04) ng/mL Stl C.difficile Tox PCR (Negative) St C. diff Tox Epid 027 (Negative) SARS-CoV-2 (PCR) (Negative) Influenza Type A (PCR) (Negative) Influenza Type B (PCR) (Negative) RSV (PCR) (Negative) Blood Type Antibody Screen <Luis Alfredo You MD - Last Filed: 09/30/22 07:51> Lab Results 09/30/22 09/30/22 09/30/22 Range/Units 07:10 07:10 07:10 WBC 5.60 (4.50-11.00) K/uL RBC 3.80 L (4.30-5.90) m/uL Hgb 12.2 L (13.5-17.5) gm/dL Hct 36.5 L (37.0-53.0) % MCV 96 (80-100) fL MCH 32 (26-34) pg MCHC 33 (32-36) gm/dL RDW Coeff of Ta 14.1 (11.5-15.5) % Plt Count 183 (140-440) K/uL Neut % (Auto) 73.6 H (42.0-72.0) % Lymph % (Auto) 22.0 (20-44) % [place] % (Auto) 0.7 (0.0-11.0) % Eos % (Auto) 2.7 (0.0-7.0) % Baso % (Auto) 0.5 (0.0-3.0) % Neut # (Auto) 4.10 (1.7-7.0) K/uL Lymph # (Auto) 1.23 (0.90-2.90) K/uL [place] # (Auto) 0.00 (0.00-0.90) K/UL Eos # (Auto) 0.15 (0.00-0.50) K/uL Baso # (Auto) 0.03 (0.00-0.30) K/uL Abs Immat Gran (auto) 0.03 (0.00-0.30) K/uL Imm/Tot Granulo (auto) 0.5 % INR 2.09 H (0.91-1.10) APTT 35 H (23-33) Seconds Sodium 138 (135-149) mmol/L Potassium 4.3 (3.6-5.1) mmol/L Chloride 101 (96-114) mmol/L Carbon Dioxide 21 (20-32) mmol/L BUN 47 H (7-30) mg/dL Creatinine 1.3 (0.5-1.5) mg/dL Estimated GFR 54 ml/min Glucose 200 H (60-115) mg/dL Calcium 9.4 (8.4-10.6) mg/dL Troponin I 0.02 (0.01-0.04) ng/mL Stl C.difficile Tox PCR (Negative) St C. diff Tox Epid 027 (Negative) SARS-CoV-2 (PCR) (Negative) Influenza Type A (PCR) (Negative) Influenza Type B (PCR) (Negative) RSV (PCR) (Negative) Blood Type Antibody Screen 09/30/22 09/30/22 09/30/22 Range/Units 07:50 07:55 08:48 WBC (4.50-11.00) K/uL RBC (4.30-5.90) m/uL Hgb (13.5-17.5) gm/dL Hct (37.0-53.0) % MCV (80-100) fL MCH (26-34) pg MCHC (32-36) gm/dL RDW Coeff of Ta (11.5-15.5) % Plt Count (140-440) K/uL Neut % (Auto) (42.0-72.0) % Lymph % (Auto) (20-44) % [place] % (Auto) (0.0-11.0) % Eos % (Auto) (0.0-7.0) % Baso % (Auto) (0.0-3.0) % Neut # (Auto) (1.7-7.0) K/uL Lymph # (Auto) (0.90-2.90) K/uL [place] # (Auto) (0.00-0.90) K/UL Eos # (Auto) (0.00-0.50) K/uL Baso # (Auto) (0.00-0.30) K/uL Abs Immat Gran (auto) (0.00-0.30) K/uL Imm/Tot Granulo (auto) % INR (0.91-1.10) APTT (23-33) Seconds Sodium (135-149) mmol/L Potassium (3.6-5.1) mmol/L Chloride (96-114) mmol/L Carbon Dioxide (20-32) mmol/L BUN (7-30) mg/dL Creatinine (0.5-1.5) mg/dL Estimated GFR ml/min Glucose (60-115) mg/dL Calcium (8.4-10.6) mg/dL Troponin I (0.01-0.04) ng/mL Stl C.difficile Tox PCR Negative (Negative) St C. diff Tox Epid 027 PRESUMPTIVE NEGATIVE (Negative) SARS-CoV-2 (PCR) Negative SARS-CoV-2 (Negative) Influenza Type A (PCR) Negative PCR FLU A (Negative) Influenza Type B (PCR) Negative PCR FLU B (Negative) RSV (PCR) Negative PCR RSV (Negative) Blood Type A Positive Antibody Screen NEGATIVE 09/30/22 Range/Units 09:39 WBC (4.50-11.00) K/uL RBC (4.30-5.90) m/uL Hgb 11.7 L (13.5-17.5) gm/dL Hct (37.0-53.0) % MCV (80-100) fL MCH (26-34) pg MCHC (32-36) gm/dL RDW Coeff of Ta (11.5-15.5) % Plt Count (140-440) K/uL Neut % (Auto) (42.0-72.0) % Lymph % (Auto) (20-44) % [place] % (Auto) (0.0-11.0) % Eos % (Auto) (0.0-7.0) % Baso % (Auto) (0.0-3.0) % Neut # (Auto) (1.7-7.0) K/uL Lymph # (Auto) (0.90-2.90) K/uL [place] # (Auto) (0.00-0.90) K/UL Eos # (Auto) (0.00-0.50) K/uL Baso # (Auto) (0.00-0.30) K/uL Abs Immat Gran (auto) (0.00-0.30) K/uL Imm/Tot Granulo (auto) % INR (0.91-1.10) APTT (23-33) Seconds Sodium (135-149) mmol/L Potassium (3.6-5.1) mmol/L Chloride (96-114) mmol/L Carbon Dioxide (20-32) mmol/L BUN (7-30) mg/dL Creatinine (0.5-1.5) mg/dL Estimated GFR ml/min Glucose (60-115) mg/dL Calcium (8.4-10.6) mg/dL Troponin I (0.01-0.04) ng/mL Stl C.difficile Tox PCR (Negative) St C. diff Tox Epid 027 (Negative) SARS-CoV-2 (PCR) (Negative) Influenza Type A (PCR) (Negative) Influenza Type B (PCR) (Negative) RSV (PCR) (Negative) Blood Type Antibody Screen <Radhika Jaime MD - Last Filed: 09/30/22 11:53> ECG Data Attestation: I personally reviewed and interpreted this ECG as follows: <Luis Alfredo You MD - Last Filed: 09/30/22 07:51> ECG interpretation date: 09/30/22 <Luis Alfredo You MD - Last Filed: 09/30/22 07:51> Prior ECG tracings: available for review <Luis Alfredo You MD - Last Filed: 09/30/22 07:51> Interpretation: Atrial fibrillation with RVR, rate is 143, <Luis Alfredo You MD - Last Filed: 09/30/22 07:51> Discharge Plan Discharge Clinical Impression: Acute retention of urine, Gross hematuria, Inguinal hernia, Hypospadias in male <Luis Alfredo You MD - Last Filed: 09/30/22 07:51> Patient Disposition: Admitted As Inpatient <Luis Alfredo You MD - Last Filed: 09/30/22 07:51> Condition: Improved <Luis Alfredo You MD - Last Filed: 09/30/22 07:51>
[2022-09-30 07:17] LABS: Basophils Absolute Auto 0.03 K/uL (0.00-0.30); Basophils Percent Auto 0.5 % (0.0-3.0); Eosinophils Absolute Auto 0.15 K/uL (0.00-0.50); Eosinophils Percent Auto 2.7 % (0.0-7.0); Hematocrit 36.5 % (37.0-53.0); Hemoglobin* 12.2 gm/dL (13.5-17.5); Immature Granulocytes Abs Auto 0.03 K/uL (0.00-0.30); Immature Granulocytes Pct Auto 0.5 %; Lymphocytes Absolute Auto 1.23 K/uL (0.90-2.90); Mean Corpuscular HGB Conc 33 gm/dL (32-36); Mean Corpuscular Hemoglobin 32 pg (26-34); Mean Corpuscular Volume 96 fL (80-100); Monocytes Percent Auto 0.7 % (0.0-11.0); Neutrophils Percent Auto 73.6 % (42.0-72.0); Platelet Count* 183 K/uL (140-440); RDW Coefficient of Variation % 14.1 % (11.5-15.5)
[2022-09-30 07:18] LABS: Slide Review Reflex No
[2022-09-30 07:35] LABS: Chloride* 101 mmol/L (96-114); Sodium* 138 mmol/L (135-149)
[2022-09-30 07:36] LABS: Potassium* 4.3 mmol/L (3.6-5.1)
[2022-09-30 07:37] LABS: INR 2.09 (0.91-1.10); Prothrombin Time 24.6 Seconds
[2022-09-30 07:38] LABS: Blood Urea Nitrogen* 47 mg/dL (7-30); Carbon Dioxide* 21 mmol/L (20-32); Creatinine* 1.3 mg/dL (0.5-1.5); Estimated Glomerular Filt Rate 54 ml/min; Partial Thromboplastin Time* 35 Seconds (23-33)
[2022-09-30 07:39] LABS: Calcium* 9.4 mg/dL (8.4-10.6); Glucose* 200 mg/dL (60-115)
--- NOTE | 2022-09-30 07:39 | CRLHL7_ITS ---
For Patients: As a result of the Century Cures Act, medical imaging exams and procedure reports are released immediately into your electronic medical record. You may view this report before your referring provider. If you have questions, please contact your health care provider. INDICATION: Abdominal pain. Blood from Porter catheter. TECHNIQUE: Multiple axial images were obtained from the diaphragm to the symphysis pubis without contrast. Sagittal and coronal re-formatted images were obtained. COMPARISON: Plain film of the abdomen done 07/14/2021. FINDINGS: There is minimal atelectasis in the dependent portion lungs with a heart valve replacement further sternotomy wires. There are surgical clips in gallbladder fossa consistent with a previous cholecystectomy. The liver, spleen, pancreas and adrenal glands are of unremarkable nonenhanced CT appearance. There is mild bilateral hydronephrosis there is no stone seen in the kidneys or ureters. There is air in the urinary bladder. There on the wall area bladder. There is a small amount of air seen in the fat around the urinary bladder. The there is a Porter catheter. The Porter catheter is in the membranous portion area bladder. There is a 4.7 x 3.0 cm fluid collection with air fluid around the Porter catheter in the membranous urethra. There is air seen dissecting into the prostate gland. There is no evidence of a bowel obstruction. The appendix is unremarkable. There are diverticula in the descending and sigmoid colon. There is no evidence of a diverticulitis the dominant normal in caliber at atherosclerotic station there is no adenopathy. There is no free fluid or pelvis. There are degenerative changes in the spine. IMPRESSION: Porter catheter tip in the membranous urethra with air-fluid collection around the Porter catheter in the membranous urethra. Air seen in the dissecting into the prostate gland and into the fat around the urinary bladder likely related to trauma from the Porter catheter. Air in the wall urinary bladder. This could be secondary to trauma from the Porter catheter however a cystitis cannot be excluded Air within the urinary bladder likely secondary to Porter catheter however an infection cannot be excluded. Mild bilateral hydronephrosis. No kidney or ureteral stone seen. Status post cholecystectomy. Please note that all CT scans at this facility use dose modulation, iterative reconstruction, and/or weight-based dosing when appropriate to reduce radiation dose to as low as reasonably achievable. Dictated by Rambo Geller MD @ 09/30/2022 9:48:20 AM (Electronically Signed)
[2022-09-30] MEDS: lidocaine HCL 2 % JELLY (TOP) STERILE 6 ML UR (07:50)
[2022-09-30] MEDS: dilTIAZem 5 MG/ML inj 10 MG IVP ×2 (07:57→08:58)
[2022-09-30] MEDS: 0.9 % SODIUM CHLORIDE 500 ML 500 ML IV (08:00)
[2022-09-30] MEDS: MORPHINE 2 MG/ML inj IVP (08:28)
[2022-09-30 08:40] LABS: PCR FLU A Negative PCR FLU A (Negative); PCR FLU B Negative PCR FLU B (Negative); PCR RSV Negative PCR RSV (Negative)
[2022-09-30 08:41] LABS: SARS PCR* Negative SARS-CoV-2 (Negative)
[2022-09-30 08:59] LABS: C.Difficile Negative (Negative); CDIFFEPI 027 PRESUMPTIVE NEGATIVE (Negative)
--- NOTE | 2022-09-30 09:20 | W.PC.EDHO ---
Primary Language: Preferred Language: Orientation Status: [x] Alert & Oriented [] Slight Confusion [] Known Dx Dementia Transfers By: [x] Assist of 1 [] Assist of 2 [] Lift Active Medications Generic Name Dose Route Start Last Admin Trade Name Freq PRN Reason Stop Dose Admin Lidocaine HCl 6 ml 09/30/22 06:25 09/30/22 07:50 Lidocaine Hcl 2 % Jelly (Top) Sterile UR 6 ml ONCE PRN Administration Discontinued Medications Generic Name Dose Route Start Last Admin Trade Name Freq PRN Reason Stop Dose Admin Diltiazem HCl 10 mg 09/30/22 07:40 09/30/22 07:57 Diltiazem 5 Mg/Ml Inj IVP 09/30/22 07:41 10 mg ONCE ONE Administration Diltiazem HCl 10 mg 09/30/22 08:49 09/30/22 08:58 Diltiazem 5 Mg/Ml Inj IVP 09/30/22 08:50 10 mg ONCE ONE Administration Sodium Chloride 500 mls @ 500 mls/hr 09/30/22 07:40 09/30/22 08:00 0.9 % Sodium Chloride 500 Ml IV 09/30/22 08:39 500 mls/hr .Q1H ONE Administration Morphine Sulfate 2 mg 09/30/22 07:38 09/30/22 08:28 Morphine 2 Mg/Ml Inj IVP 09/30/22 07:39 2 mg ONCE ONE Administration Description of Symptoms ED Triage Present Problem pt with pain in abd area. [employer]IC reports pt has blood Description from bashir cath, not producing urine. pain 6/10. started at 0430, per [employer]IC, pt looks more pale now @0630 than he did at 0430 Female History Patient Pain Pain Description [Medial Other Abdomen] Pain Description [Medial Pressure Abdomen] Pain Intensity [Medial Abdomen 6 ] Pain Intensity [Medial Abdomen 6 ] Pain Scale Used [Medial Numeric (1 - 10) Abdomen] Pain Scale Used [Medial Numeric (1 - 10) Abdomen] Oxygen Administration Pulse Oximetry 95 Oxygen Delivery Method Room Air
--- NOTE | 2022-09-30 09:41 | PM.IMHP1 ---
Hospitalist- H&P: HPI History of Present Illness Date Seen: 09/30/22 Chief complaint: Catheter issues Narrative: Dax Gordon is a 87 year old male with pmhx of systolic CHF (EF 10%), TAVR, Afib, Hx of ICD presenting to ED for evaluation of hematuria. At time of evaluation patient somnolent/lethargic and unable to provide hx. He is on warfarin and was noted to have hematuria. A bashir catheter was placed with plans for CBI. CT AP showed IMPRESSION: Bahsir catheter tip in the membranous urethra with air-fluid collection around the Bashir catheter in the membranous urethra. Air seen in the dissecting into the prostate gland and into the fat around the urinary bladder likely related to trauma from the Bashir catheter. Air in the wall urinary bladder. This could be secondary to trauma from the Bashir catheter however a cystitis cannot be excluded Air within the urinary bladder likely secondary to Bashir catheter however an infection cannot be excluded. Mild bilateral hydronephrosis. No kidney or ureteral stone seen. Status post cholecystectomy. In the ED he was given IV diltiazem due to afib w/RVR and admitted for further evaluation. Review of Systems Status of ROS: Reports: unobtainable due to medical condition PFSH PFSH Social History Smoking Status: Unknown if ever smoked Non-prescribed substance use: denies use Meds Home Medications and Allergies Home Medications Medication Instructions Recorded Confirmed Type allopurinol 100 mg tablet 100 mg PO DAILY 09/30/22 09/30/22 History aspirin 81 mg chewable tablet 81 mg PO DAILY 09/30/22 09/30/22 History atorvastatin 20 mg tablet 20 mg PO HS 09/30/22 09/30/22 History calcium carbonate 500 mg-vitamin 1 tab PO DAILY 09/30/22 09/30/22 History D3 5 mcg (200 unit) tablet (Oyster Shell Calcium-Vitamin D3) cyanocobalamin (vitamin B-12) 500 500 mcg PO DAILY 09/30/22 09/30/22 History mcg tablet digoxin 125 mcg (0.125 mg) tablet 0.0625 mg PO DAILY 09/30/22 09/30/22 History furosemide 80 mg tablet 80 mg PO DAILY 09/30/22 09/30/22 History geriatric multivitamin-min 1 tab PO DAILY 09/30/22 09/30/22 History lisinopril 2.5 mg tablet 2.5 mg PO DAILY 09/30/22 09/30/22 History loperamide 2 mg capsule 4 mg PO DAILY 09/30/22 09/30/22 History melatonin 10 mg tablet 10 mg PO HS 09/30/22 09/30/22 History metformin 500 mg tablet,extended 1,000 mg PO BIDWM 09/30/22 09/30/22 History release 24 hr metoprolol succinate 50 mg 50 mg PO DAILY 09/30/22 09/30/22 History tablet,extended release 24 hr nystatin 100,000 unit/gram topical 1 applic topical BID PRN 09/30/22 09/30/22 History powder (Nystop) pramipexole 0.25 mg tablet 0.25 mg PO HS 09/30/22 09/30/22 History spironolactone 25 mg tablet 12.5 mg PO DAILY 09/30/22 09/30/22 History warfarin 2 mg tablet See Rx Instructions .Route .COMPLEX 09/30/22 09/30/22 History Allergies Allergy/AdvReac Type Severity Reaction Status Date / Time No Known Drug Allergies Allergy Verified 04/25/22 15:51 Exam Narrative: Exam Narrative: GeN: Somnolent and lethargic; arousable HEENT: NCAT EOMI MMM CV IRIR s1 s2 Lungs: CTAB Abd: Soft, nt, nd Neuro: Lethargic unable to follow commands : bashir with hematuria Const: Vital Signs, click to edit/add: Vital Signs - 24 hr 09/30/22 06:18 Temperature 99.2 F Respiratory Rate 24 Blood Pressure [Ri ght Upper Arm] 145/122 H Pulse Oximetry 95 Oxygen Delivery Me thod Room Air Hospitalist - H&P: Result Labs Labs: Short CBC 09/30/22 Range/Units 07:10 WBC 5.60 (4.50-11.00) K/uL Hgb 12.2 L (13.5-17.5) gm/dL Hct 36.5 L (37.0-53.0) % Plt Count 183 (140-440) K/uL [facility] 09/30/22 07:10 Sodium 138 Potassium 4.3 Chloride 101 Carbon Dioxide 21 BUN 47 H Creatinine 1.3 Glucose 200 H Calcium 9.4 Assessment and Plan Assessment and plan (1) Acute retention of urine: Status: Acute (2) Gross hematuria: Status: Acute (3) Inguinal hernia: Status: Acute (4) Hypospadias in male: Status: Acute (5) Septic shock: Status: Acute Plan Assessment: Dax Gordon is a 87 year old male with pmhx of systolic CHF (EF 10%), TAVR, Afib, Hx of ICD presenting to ED for evaluation of hematuria 1. Septic Shock; likely secondary to catheter associated UTI; hx of recurrent UTI Stat labs: CBC, BMP, lactate, procal, blood cx, cxr -WBC increased to 23, lactate 6.9, procal 24 -Bolus; Albumin infusion, empiric vanco+zosyn -levophed -goal MAP>65 -serial lactate 2. Afib w/RVR -amiodarone infusion dc dilt drip 3. Hx of systolic CHF with EF 10%, hx of ICD, Hx of TAVR -hold diuretics/antihypertensives 4. Metabolic encephalopathy secondary to #1 5. Hematuria; continue CBI Code Status: Full Code DVT ppx: SCD GI pppx-Protonix prognosis is poor Family communication: discussed with sons; they want aggressive interventions Discussed with [facility], plan is to transfer to [facility] Dr. Tony ([phone]) 4-8 hours once bed available
[2022-09-30 09:42] LABS: Hemoglobin* 11.7 gm/dL (13.5-17.5)
--- NOTE | 2022-09-30 09:55 | PC.NURSE ---
upon arriving back from imaging, pt catheter was not draining and noted francisco appearing blood in tubing, CBI with NS stopped and and attempt made to irrigate catheter x3 without success, pt also noted to have temp 101.8, aware and gives verbal order to replace catheter and also aware of temp
--- NOTE | 2022-09-30 10:02 | PC.NURSE ---
CBI bashir catheter changed, 22fr placed and draining now, urine starting to clear to sierra color
[2022-09-30 10:29] LABS: Troponin I* 0.02 ng/mL (0.01-0.04)
--- NOTE | 2022-09-30 10:34 | CRLHL7_ITS ---
For Patients: As a result of the Century Cures Act, medical imaging exams and procedure reports are released immediately into your electronic medical record. You may view this report before your referring provider. If you have questions, please contact your health care provider. INDICATION: Shortness of breath. COMPARISON: 02/10/2022. FINDINGS: A portable AP view of the chest was obtained. There is a stable left-sided ICD device. There are sternotomy wires. There is an aortic valve replacement. The cardiac silhouette is stable. The pulmonary vasculature is within normal limits. There is stable elevation right hemidiaphragm. The lungs are clear of acute infiltrates. IMPRESSION: Stable chest x-ray. No evidence of acute pulmonary disease. Dictated by Rambo Geller MD @ 09/30/2022 11:51:28 AM (Electronically Signed)
[2022-09-30] MEDS: LACTATED RINGERS 1000 ML 1,000 ML IV (10:36)
[2022-09-30 10:57] LABS: HCO3 VBG 20 mmol/L (21-28); PCO2 VBG 33 mmHG (40-50); pH VBG 7.385 (7.32-7.43)
[2022-09-30] MEDS: METOPROLOL TARTRATE 1 MG/ML inj 5 MG IVP ×2 (10:59→14:09)
[2022-09-30] MEDS: dilTIAZem HCL 125 MG in 0.9 % SODIUM CHLORIDE 100 ml 100 ML 10 MG IVPB (11:00)
[2022-09-30 11:06] LABS: Basophils Percent Auto 0.2 % (0.0-3.0); Eosinophils Percent Auto 0.1 % (0.0-7.0); Hematocrit 31.3 % (37.0-53.0); Hemoglobin* 10.5 gm/dL (13.5-17.5); Immature Granulocytes Pct Auto 1.6 %; Lymphocytes Percent Auto 1.1 % (20-44); Mean Corpuscular HGB Conc 34 gm/dL (32-36); Mean Corpuscular Hemoglobin 32 pg (26-34); Mean Corpuscular Volume 95 fL (80-100); Monocytes Percent Auto 0.2 % (0.0-11.0); Neutrophils Percent Auto 96.8 % (42.0-72.0); Platelet Count* 170 K/uL (140-440); RDW Coefficient of Variation % 14.3 % (11.5-15.5); Red Blood Count 3.29 m/uL (4.30-5.90); White Blood Count* 23.15 K/uL (4.50-11.00)
[2022-09-30 11:10] LABS: Lactate Sepsis w/Reflex* 6.9 mmol/L (0.5-1.9); Slide Review Reflex No
[2022-09-30] MEDS: PIPERACILLIN/TAZOBACTAM 4.5 GM in 0.9 % SODIUM CHLORIDE Mini-bag 100 ML IVPB (11:11)
[2022-09-30 11:18] LABS: Albumin* 3.7 g/dL (3.3-5.0); Chloride* 103 mmol/L (96-114)
[2022-09-30 11:19] LABS: Potassium* 4.4 mmol/L (3.6-5.1); Sodium* 136 mmol/L (135-149)
[2022-09-30 11:21] LABS: Alkaline Phosphatase* 123 U/L (40-150); Aspartate Amino Transferase* 55 U/L (12-35); Bilirubin Total* 0.5 mg/dL (0.1-1.5); Carbon Dioxide* 18 mmol/L (20-32); Creatinine* 1.4 mg/dL (0.5-1.5); Estimated Glomerular Filt Rate 49 ml/min; Total Protein* 6.5 g/dL (6.0-8.3)
[2022-09-30 11:22] LABS: Alanine Aminotransferase* 30 U/L (4-50); Blood Urea Nitrogen* 50 mg/dL (7-30); Calcium* 8.9 mg/dL (8.4-10.6); Glucose* 306 mg/dL (60-115)
[2022-09-30] MEDS: ALBUMIN HUMAN 25% 100 ML VIAL IV ×2 (11:26→14:34)
[2022-09-30] MEDS: 0.9 % SODIUM CHLORIDE 1000 ml 1,000 ML 100 ML IV (11:26)
[2022-09-30 11:35] LABS: Appearance Urine Cloudy (Clear); Bilirubin Urine Negative (Negative); Blood Urine 3+ (Negative); Color Urine Red (Yellow); Glucose Urine Negative (Negative); Ketones Urine Negative (Negative); Leukocyte Esterase Urine Trace (Negative); Nitrite Urine Negative (Negative); Protein Urine 2+ (Negative); Specific Gravity Urine 1.015 (1.000-1.030); Urobilinogen Urine 0.2 (0.2-1.0)
[2022-09-30 11:36] LABS: Magnesium* 1.5 mg/dL (1.5-2.6)
[2022-09-30 11:55] LABS: Bacteria Urine Many; RBC Urine >100 (0-2); Squamous Epithelial Cell Urine Few (None-Few); WBC Urine 25-50 (0-5)
[2022-09-30] MEDS: PANTOPRAZOLE SODIUM 40 MG INJ IVP (12:09)
[2022-09-30] MEDS: AMIODARONE 50 MG/ML inj 150 MG in 5 % DEXTROSE 100 ML 100 ML 618 MG IVPB (13:19)
[2022-09-30] MEDS: 0.9 % SODIUM CHLORIDE 1000 ml 1,000 ML IV (14:59)
--- NOTE | 2022-09-30 16:31 | PC.NURSE ---
End of shift. pt was not responsive @ 1020 on admission he did respond to painful corrales rub. HR was 186. MD was in the room at admission and was outside the room for most of his stay. IV LR 1L bolus and 2nd and 3rd SL was started. meds given per md and emar. he was on 3 drips./ all drips where double checked by 2 nurse both in the E[place] and IV pumps. o2 on @ 2L nc. tele was hard wired int he room see tele strips. Porter cath to [address] and CBI is going. VS taken every 3 minutes. pt was getting transferred to [facility] but they called with concerns with IV drips and air was called. MD decided to go by Air. Pt was 1 to 1 most of the time with needed a 2nd nurse for the fisrt hour to get things done and drips and meds going.
--- NOTE | 2022-10-01 12:21 | PC.SOCIAL ---
Phone call to resident's son, Dax Gordon Jr, to discuss bed hold. Dax states that he will find out more information about how resident is doing today and will call with an update. Family would like to complete the bed hold form. Obtained verbal consent to complete bed hold form and placed in resident's chart.
== END 2022-09-30 16:05 | disposition short-term general hospital (02) | DRG 698 ==
LOC: ED 08:28 → MEDSURG 10:19
PROVIDERS: Family Medicine; Hospitalist; Admitting Provider Family Medicine; Emergency Provider Family Medicine; PCP Family Medicine; Visit Provider Family Medicine
DX: T83.511A Infection and inflammatory reaction due to indwelling urethral catheter, initial encounter (principal); G93.41 Metabolic encephalopathy; R65.21 Severe sepsis with septic shock; D68.32 Hemorrhagic disorder due to extrinsic circulating anticoagulants; I50.20 Unspecified systolic (congestive) heart failure; N39.0 Urinary tract infection, site not specified; R31.0 Gross hematuria; T45.515A Adverse effect of anticoagulants, initial encounter; R33.8 Other retention of urine; I48.91 Unspecified atrial fibrillation; K40.90 Unilateral inguinal hernia, without obstruction or gangrene, not specified as recurrent; Q54.9 Hypospadias, unspecified; F03.90 Unspecified dementia, unspecified severity, without behavioral disturbance, psychotic disturbance, mood disturbance, and anxiety
CPT/HCPCS: 36415; 71045; 74176; 80048; 80053; 81001; 81003; 82803; 83735; 84145; 84484; 85018; 85025; 85610; 85730; 86850; 86900; 86901; 87040; 87086; 87186; 87493; 87502; 87634; 87635; 93005; 99285; 99291; C9113; J0282; J2270; J2543; J3370; J3490; J7030; J7050; J7120; P9047